=== PATIENT | male | born 1965 | race Caucasian/White ===

== ENCOUNTER 2017-02-04 11:22 | Emergency (ER) | payer MEDICARE ==
[~2017-02-04 11:22] MED LIST: GING250C PO; LORTA5 PO; METO10TA PO; MILK250C2 PO; NIAC500T18 PO; POTA99TA12 PO; PYRI100T4 PO; VITA500T49 PO; [UNRECOGNIZED DRUG - CODE] PO
[2017-02-04 11:24] VITALS: BP 124/85; PULSE 68; RESP 20; TEMP 97.6; O2SAT 6; O2SAT 96
--- NOTE | 2017-02-04 12:03 | PD ---
HPI . right ankle/heel/foot pain s/p fall Chief Complaint: Musculoskeletal Complaint Time Seen by Provider: 12:03 Travel History International Travel<30 days: No Contact w/Intl Traveler<30days: No Traveled to known affect area: No History of Present Illness HPI 51 yr old male with hx of liver cancer here with c/o right foot/heel/ankle pain s/p fall 2 days ago from a roof. He tells me he fell off and landed on his right heel. He denies any pain elsewhere and states he has full ROM of his right extremity, but that it just hurts to put weight on his heel. He rates pain as 2/10. He denies any back or head injury. He denies any bowel or bladder dysfunction. No saddle anesthesia. PFSH Past Medical History Arthritis: No Asthma: No Anxiety: Yes Depression: Yes Heart Rhythm Problems: No Cancer: Yes (COLON, LIVER) Cardiovascular Problems: No High Cholesterol: No Chemotherapy: Yes (currently ) Chest Pain: No Congestive Heart Failure: No COPD: No Cerebrovascular Accident: No Diabetes: No Diminished Hearing: No Endocrine: No GERD: No Genitourinary: No Hepatitis: No Hiatal Hernia: Yes Immune Disorder: No Kidney Stones: Yes Musculoskeletal: Yes Neurologic: Yes (NEUROPATHY IN FINGERS AND TOES) Psychiatric: Yes (SCHIZOPHRENIA DIAGNOSIS, PT STATES HE IS NOT) Reproductive: No Respiratory: No Immunizations Current: No Migraines: Yes Renal Failure: No Schizophrenia: Yes Seizures: No Sleep Apnea: No Thyroid Disease: No Ulcer: No Past Surgical History Abdominal Surgery: Yes (spots removed off of liver) AICD: No Arteriovenous Shunt: No Body Medical Devices: IMPLANTED PORT Cardiac Surgery: No Ear Surgery: No Endocrine Surgery: No Genitourinary Surgery: No Gynecologic Surgery: No Insulin Pump: No Joint Replacement: No Oral Surgery: No Pacemaker: No Thoracic Surgery: Yes (PORT PLACEMENT) Social History Alcohol Use: Yes (BEER DAILY) Tobacco Use: No Substance Use: Yes (marijuana 4 times/ day) Allergies-Medications (Allergen,Severity, Reaction): Coded Allergies: No Known Allergies (Verified , 02/04/17) Reported Meds & Prescriptions Reported Meds & Active Scripts Active Review of Systems General / Constitutional: No: Fever Eyes: No: Visual changes HENT: No: Headaches Cardiovascular: No: Chest Pain or Discomfort Respiratory: No: Shortness of Breath Gastrointestinal: No: Abdominal Pain Genitourinary: No: Dysuria Musculoskeletal: Positive: Pain (right foot/heel/ankle) Skin: No Rash Neurologic: No: Weakness Psychiatric: No: Depression Endocrine: No: Polydipsia Hematologic/Lymphatic: No: Easy Bruising Physical Exam Narrative GENERAL: AAO x 3, no acute distress, Well-nourished, well-developed patient. SKIN: Warm and dry. No visible rashes or bruising. Slight edema to the right anterior foot, right medial and lateral ankle, slight ecchymosis to proximal toes of right foot, no tension or tightness to suggest compartment syndrome HEAD: Normocephalic and atraumatic. EYES: No scleral icterus. No injection or drainage. EOM intact, PERRLA ENT: No nasal drainage noted. Mucous membranes pink. Airway patent. NECK: Supple, trachea midline. No JVD. CARDIOVASCULAR: Regular rate and rhythm without murmurs, gallops, or rubs. RESPIRATORY: Breath sounds equal bilaterally. No accessory muscle use. No rhonchi or rales. GASTROINTESTINAL: Abdomen soft, non-tender, nondistended. EXTREMITIES: No cyanosis or edema. Full range of motion of the right lower extremity. Hip joint is stable. Knee is stable. Right ankle is stable. Digits of the toes move normally. There is point tenderness around the heel and lateral right ankle NEURO: sensation is intact/ strength in RLE 5/5 BACK: Nontender without obvious deformity. No CVA tenderness. PSYCH: AAO x 3, normal affect. Data Data Last Documented VS Vital Signs Date Time Temp Pulse Resp B/P Pulse Ox O2 Delivery O2 Flow Rate FiO2 02/04/17 11:24 97.6 68 20 124/85 96 Room Air Orders Ankle, Complete ([id number]) (02/04/17 12:07) Foot, Complete ([id number]) (02/04/17 12:07) Femur (Ap & Lat/2vws) (02/04/17 14:11) Tibia/Fibula (Ap/Lat) (02/04/17 14:11) Pelvis, Ap Only (Routine) (02/04/17 14:11) Spine, Lumbar Comp W/Obliq (02/04/17 14:47) Ct Foot W/O Contrast (02/04/17 ) Splinting (02/04/17 ) Fiberglass Short Leg Splint Ad (02/04/17 ) Fiberglass Sugartong Sp Ad Sl (02/04/17 ) MDM Medical Decision Making Medical Screen Exam Complete: Yes Emergency Medical Condition: Yes Medical Record Reviewed: Yes Differential Diagnosis bone contusion, calcaneal fracture, less likely ankle fracture Narrative Course 51 yr old male here with right ankle/foot and heel pain. He tells me that the pain is primarily located in the right heel. He has no evidence of compartment syndrome. Last 24 hours Impressions Lumbar Spine X-Ray 02/04/17 1447 Signed Impressions: Service Date/Time: Saturday, February 04, 2017 14:59 - CONCLUSION: No evidence of fracture. Joe Gavin MD Tibia/Fibula X-Ray 02/04/17 1411 Signed Impressions: Service Date/Time: Saturday, February 04, 2017 14:26 - CONCLUSION: No evidence of fracture. Joe Gavin MD Pelvis X-Ray 02/04/17 1411 Signed Impressions: Service Date/Time: Saturday, February 04, 2017 14:30 - CONCLUSION: No evidence of fracture. Joe Gavin MD Femur X-Ray 02/04/17 1411 Signed Impressions: Service Date/Time: Saturday, February 04, 2017 14:31 - CONCLUSION: No evidence of fracture. Joe Gavin MD Foot X-Ray 02/04/17 1207 Signed Impressions: Service Date/Time: Saturday, February 04, 2017 12:45 - CONCLUSION: Nondisplaced calcaneal fracture. Joe Gavin MD Ankle X-Ray 02/04/17 1207 Signed Impressions: Service Date/Time: Saturday, February 04, 2017 12:44 - CONCLUSION: Nondisplaced central calcaneus fracture. Joe Gavin MD Xray ordered of right ankle and heel. Hip is stable and moves normally. Do no suspect any injury to that area. prelim rad: + calcaneal fracture 1413: rad confirmed:+ calcaneal fracture will go ahead and check entire extremity: discussed with Dr Guzman call placed to Podiatry to see if CT scan is recommended all other rad (negative for acute fracture) splint applied by life science technical officer offered pain medications upon discharge and patient declined stating his pain is 2/10 and he will use Motrin PRN. He will f/u with Dr. Tucker in her office, I have spoken to her. She will see him Monday. I have provided him with the information. I discussed this with him and his mother. Patient verbalized understanding of instructions, questions were answered, and thanked me for their care. I advised them if their condition worsens, please return to the nearest emergency room for further care. Diagnosis Primary Impression: Closed right calcaneal fracture Qualified Code: S92.014A - Closed nondisplaced fracture of body of right calcaneus, initial encounter Referrals: Emily Tucker DPM Patient Instructions: General Instructions Additional Instructions: If you develop any swelling or tightness of skin near the cast, please go to the nearest emergency department. This could be an emergency and would need immediate attention. Please follow-up with Dr. Tucker in her office on Monday. Med/Other Pt SpecificInfo: No Change to Meds Scripts No Active Prescriptions or Reported Meds Disposition: 01 DISCHARGE HOME Condition: Stable Britt Sherman February 04, 2017 12:03
--- NOTE | 2017-02-04 14:06 | RADRPT ---
EXAM DATE/TIME: 02/04/2017 12:44 [facility] COMPARISON: FOOT RIGHT COMPLETE ([id number]), February 04, 2017, 12:45. INDICATIONS : Right ankle pain after fall from roof 2 days ago MEDICAL HISTORY : None. SURGICAL HISTORY : None. ENCOUNTER: Initial ACUITY: 2 days PAIN SCORE: 2/10 LOCATION: Right entire ankle FINDINGS: 3 views right ankle. Bone alignment within normal limits. Nondisplaced fracture of the central calcan eus. Ankle mortise intact. CONCLUSION: Nondisplaced central calcaneus fracture. Joe Gavin MD on February 04, 2017 at 14:03 Board Certified Radiologist. This report was verified electronically.
--- NOTE | 2017-02-04 14:08 | RADRPT ---
EXAM DATE/TIME: 02/04/2017 12:45 [facility] COMPARISON: No previous studies available for comparison. INDICATIONS : Right foot pain after fall from ladder today MEDICAL HISTORY : None. SURGICAL HISTORY : None. ENCOUNTER: Initial ACUITY: 1 day PAIN SCORE: 2/10 LOCATION: Right entire foot FINDINGS: 3 views right foot. Nondisplaced central calcaneus fracture obliquely oriented and may involve the po sterior process. It extends to the lateral aspect of the anterior process. Alignment within normal li mits. CONCLUSION: Nondisplaced calcaneal fracture. Joe Gavin MD on February 04, 2017 at 14:05 Board Certified Radiologist. This report was verified electronically.
--- NOTE | 2017-02-04 15:21 | RADRPT ---
EXAM DATE/TIME: 02/04/2017 14:26 [facility] COMPARISON: No previous studies available for comparison. INDICATIONS : Trauma to right lower leg after fall from roof two days ago MEDICAL HISTORY : None. SURGICAL HISTORY : None. ENCOUNTER: Initial ACUITY: 2 days PAIN SCORE: 0/10 LOCATION: Right lower leg FINDINGS: 2 views right tibia and fibula. No evidence of bowel dilatation. No free air or free fluid. Appendix within normal limits. CONCLUSION: No evidence of fracture. Joe Gavin MD on February 04, 2017 at 15:19 Board Certified Radiologist. This report was verified electronically.
--- NOTE | 2017-02-04 15:22 | RADRPT ---
EXAM DATE/TIME: 02/04/2017 14:30 [facility] COMPARISON: No previous studies available for comparison. INDICATIONS : Trauma to pelvis after fall from roof two days ago MEDICAL HISTORY : None. SURGICAL HISTORY : None. ENCOUNTER: Initial ACUITY: 2 days PAIN SCORE: 0/10 LOCATION: Pelvis FINDINGS: Single AP view of the pelvis. Bone alignment within normal limits. No evidence of fracture. Minimal osteophytes in the hips. No evidence of joint narrowing. CONCLUSION: No evidence of fracture. Joe Gavin MD on February 04, 2017 at 15:20 Board Certified Radiologist. This report was verified electronically.
--- NOTE | 2017-02-04 15:23 | RADRPT ---
EXAM DATE/TIME: 02/04/2017 14:31 [facility] COMPARISON: No previous studies available for comparison. INDICATIONS : Trauma to right femur after fall from roof two days ago MEDICAL HISTORY : None. SURGICAL HISTORY : None. ENCOUNTER: Initial ACUITY: 2 days PAIN SCORE: 0/10 LOCATION: Right entire femur FINDINGS: 4 views right femur. Bone alignment within normal limits. No evidence of fracture. CONCLUSION: No evidence of fracture. Joe Gavin MD on February 04, 2017 at 15:21 Board Certified Radiologist. This report was verified electronically.
--- NOTE | 2017-02-04 15:36 | RADRPT ---
EXAM DATE/TIME: 02/04/2017 14:59 [facility] COMPARISON: No previous studies available for comparison. INDICATIONS : Ankle pain from fall off of a roof. MEDICAL HISTORY : None. SURGICAL HISTORY : None. ENCOUNTER: Initial ACUITY: 1 day PAIN SCORE: 0/10 LOCATION: Spine. FINDINGS: 5 views of the lumbar spine. Bone alignment within normal limits. No evidence of fracture. Small ost eophytes at every level. CONCLUSION: No evidence of fracture. Joe Gavin MD on February 04, 2017 at 15:33 Board Certified Radiologist. This report was verified electronically.
--- NOTE | 2017-02-04 16:13 | RADRPT ---
EXAM DATE/TIME: 02/04/2017 15:08 [facility] COMPARISON: FOOT RIGHT COMPLETE ([id number]), February 04, 2017, 12:45. INDICATIONS : Fall two days ago from roof, right foot pain. RADIATION DOSE: 10.15 CTDIvol (mGy) MEDICAL HISTORY : None SURGICAL HISTORY : None. ENCOUNTER: Initial ACUITY: 2 days PAIN SCALE: 9/10 LOCATION: Right foot TECHNIQUE: Volumetric scanning of the foot was performed. Using automated exposure control and a djustment of the mA and/or kV according to patient size, radiation dose was kept as low as reasonably achievable to obtain optimal diagnostic quality images. FINDINGS: There is fracturing through the calcaneus. The posterior extent of the fracture is seen superiorly j ust posterior to the posterior facet of the subtalar joint at the calcaneus. This portion of the fra cture extends inferiorly into the mid body of the calcaneus and then subsequently extends anteriorly towards the superior and lateral aspect of the anterior and mid portion of the calcaneus. There is a lso a component of the fracture extending through the anterior aspect of the sustentaculum mindy. No other fracture is seen. The subtalar joint does appear aligned. There is some loss of height at the calcaneus with loss of Bhler's angle. CONCLUSION: Calcaneal fracture. Prince Quintero MD on February 04, 2017 at 15:58 Board Certified Radiologist. This report was verified electronically.
== END 2017-02-04 16:25 | disposition home or self-care (01) ==
LOC: NEPK 11:22
DX: S92.014A Nondisplaced fracture of body of right calcaneus, initial encounter for closed fracture (principal); G62.9 Polyneuropathy, unspecified; Z85.05 Personal history of malignant neoplasm of liver; W13.2XXA Fall from, out of or through roof, initial encounter; Y99.8 Other external cause status
CPT/HCPCS: 29515; 72110; 72170; 73552; 73590; 73610; 73630; 73700

== ENCOUNTER 2017-10-16 12:46 | Emergency (ER) | payer MEDICARE ==
[~2017-10-16] VITALS: Ht 180.3 cm; Wt 72.7 kg
[2017-10-16] MEDS ORDERED: IOHEXOL 350 MG/ML 10 ML VIAL (for RAD DIAG) IVCONTRAST ONE (12:47)
[2017-10-16 12:49] VITALS: BP 124/84; PULSE 81; RESP 16; TEMP 97.8; O2SAT 98
[2017-10-16] MEDS ORDERED: SODIUM CHLOR 0.9% 1000 ML INJ 1,000 ML IV SCH (13:31)
--- NOTE | 2017-10-16 13:44 | PD ---
HPI Chief Complaint: Abdominal Pain Time Seen by Provider: 13:23 Travel History International Travel<30 days: No Contact w/Intl Traveler<30days: No Traveled to known affect area: No History of Present Illness HPI 52-year-old male presents emergency department with lower central anterior abdominal pain which he states he has been having off and on for approximately 2 weeks but much worse since last evening. Patient has had nausea but no vomiting. Pain is now an 8 out of 10 and sharp. He was diagnosed with metastatic colon cancer in May of 2014. The patient had multiple chemotherapies and now he is receiving local ablation therapy for liver metastasis at [facility]. Patient recently states he had a PET scan in [place] but does not know the results of this. Patient states his bowels have been moving normally and he has not noticed any changes. Patient has no history of diverticulitis in the past. He denies fever, chills, or chest pain. He denies urinary symptoms at this time. Patient has no known drug allergies. PFSH Past Medical History Arthritis: No Asthma: No Anxiety: Yes Depression: Yes Heart Rhythm Problems: No Cancer: Yes (COLON, LIVER) Cardiovascular Problems: No High Cholesterol: No Chemotherapy: Yes (12/2016) Chest Pain: No Congestive Heart Failure: No COPD: No Cerebrovascular Accident: No Diabetes: No Diminished Hearing: No Endocrine: No Gastrointestinal Disorders: Yes GERD: No Genitourinary: No Hepatitis: No Hiatal Hernia: Yes Immune Disorder: No Kidney Stones: Yes Musculoskeletal: Yes Neurologic: Yes (NEUROPATHY IN FINGERS AND TOES) Psychiatric: Yes (SCHIZOPHRENIA DIAGNOSIS, PT STATES HE IS NOT) Reproductive: No Respiratory: No Immunizations Current: No Migraines: Yes Renal Failure: No Schizophrenia: Yes Seizures: No Sleep Apnea: No Thyroid Disease: No Ulcer: No Past Surgical History Abdominal Surgery: Yes (spots removed off of liver) AICD: No Arteriovenous Shunt: No Body Medical Devices: IMPLANTED PORT Cardiac Surgery: No Ear Surgery: No Endocrine Surgery: No Genitourinary Surgery: No Gynecologic Surgery: No Insulin Pump: No Joint Replacement: No Oral Surgery: No Pacemaker: No Thoracic Surgery: Yes (PORT PLACEMENT) Other Surgery: Yes (HX OF COLONOSCOPY, PORT PLACEMENT x2) Social History Alcohol Use: Yes (occ) Tobacco Use: No Substance Use: Yes (marijuana ) Allergies-Medications (Allergen,Severity, Reaction): Coded Allergies: No Known Allergies (Verified Allergy, Unknown, 10/16/17) Reported Meds & Prescriptions Reported Meds & Active Scripts Active Tramadol (Tramadol HCl) 50 Mg Tab 50 Mg PO Q6H PRN Review of Systems Except as stated in HPI: all other systems reviewed are Neg General / Constitutional: No: Fever, Chills Eyes: No: Visual changes HENT: No: Headaches Cardiovascular: No: Chest Pain or Discomfort Respiratory: No: Shortness of Breath Gastrointestinal: Positive: Nausea, Abdominal Pain, Loss of Appetite, No: Vomiting, Diarrhea, Indigestion, Dysphagia Genitourinary: No: Dysuria Musculoskeletal: No: Pain Skin: No Rash Neurologic: No: Weakness Psychiatric: No: Depression Endocrine: No: Polydipsia Hematologic/Lymphatic: No: Easy Bruising Physical Exam Narrative GENERAL: Patient appears in moderate distress. SKIN: Warm and dry. Normal color. Normal turgor. No rash. HEAD: Atraumatic. Normocephalic. EYES: Pupils equal and round. No scleral icterus. No injection or drainage. ENT: No nasal bleeding or discharge. Mucous membranes pink and moist. Pharynx is clear. Airways patent. NECK: Trachea midline. Supple and nontender CARDIOVASCULAR: Regular rate and rhythm. RESPIRATORY: No accessory muscle use. Clear to auscultation. Breath sounds equal bilaterally. GASTROINTESTINAL: Abdomen soft, moderate to severe tenderness just below the umbilicus with guarding and slight rebound, nondistended. Bowel sounds are present in all quadrants. Hepatic and splenic margins not palpable. MUSCULOSKELETAL: Extremities without clubbing, cyanosis, or edema. No obvious deformities. NEUROLOGICAL: Awake and alert. No obvious cranial nerve deficits. Motor grossly within normal limits. Five out of 5 muscle strength in the arms and legs. Normal speech. PSYCHIATRIC: Appropriate mood and affect; insight and judgment normal. Data Data Last Documented VS Vital Signs Date Time Temp Pulse Resp B/P (MAP) Pulse Ox O2 Delivery O2 Flow Rate FiO2 10/16/17 17:32 10/16/17 16:28 65 18 100 Room Air 10/16/17 12:49 97.8 Orders Orders Complete Blood Count With Diff (10/16/17 13:31) Comprehensive Metabolic Panel (10/16/17 13:31) Lipase (10/16/17 13:31) Lactic Acid (10/16/17 13:31) Prothrombin Time / Inr (Pt) (10/16/17 13:31) Act Partial Throm Time (Ptt) (10/16/17 13:31) Urinalysis - C+S If Indicated (10/16/17 13:31) Ct Abd/Pel W Iv Contrast(Rout) (10/16/17 13:31) Iv Access Insert/Monitor (10/16/17 13:31) Ecg Monitoring (10/16/17 13:31) Oximetry (10/16/17 13:31) NPO (10/16/17 13:31) Ondansetron Inj (Zofran Inj) (10/16/17 13:45) Sodium Chlor 0.9% 1000 Ml Inj (Ns 1000 M (10/16/17 13:31) Sodium Chloride 0.9% Flush (Ns Flush) (10/16/17 13:45) Electrocardiogram (10/16/17 13:31) Famotidine Inj (Pepcid Inj) (10/16/17 13:45) Morphine Inj (Morphine Inj) (10/16/17 13:45) Iohexol 350 Inj (Omnipaque 350 Inj) (10/16/17 12:47) Ed Discharge Order (10/16/17 16:54) Heparin Central Flush (Heparin Central F (10/16/17 17:30) Labs Laboratory Tests Test 10/16/17 13:56 10/16/17 16:21 White Blood Count 7.7 TH/MM3 Red Blood Count 4.53 MIL/MM3 Hemoglobin 14.9 GM/DL Hematocrit 42.3 % Mean Corpuscular Volume 93.2 FL Mean Corpuscular Hemoglobin 32.9 PG Mean Corpuscular Hemoglobin Concent 35.3 % Red Cell Distribution Width 13.8 % Platelet Count 168 TH/MM3 Mean Platelet Volume 8.9 FL Neutrophils (%) (Auto) 69.3 % Lymphocytes (%) (Auto) 20.8 % Monocytes (%) (Auto) 7.8 % Eosinophils (%) (Auto) 1.2 % Basophils (%) (Auto) 0.9 % Neutrophils # (Auto) 5.4 TH/MM3 Lymphocytes # (Auto) 1.6 TH/MM3 Monocytes # (Auto) 0.6 TH/MM3 Eosinophils # (Auto) 0.1 TH/MM3 Basophils # (Auto) 0.1 TH/MM3 CBC Comment DIFF FINAL Differential Comment Prothrombin Time 10.2 SEC Prothromb Time International Ratio 1.0 RATIO Activated Partial Thromboplast Time 29.0 SEC Blood Urea Nitrogen 10 MG/DL Creatinine 0.61 MG/DL Random Glucose 89 MG/DL Total Protein 7.8 GM/DL Albumin 3.8 GM/DL Calcium Level 8.7 MG/DL Alkaline Phosphatase 121 U/L Aspartate Amino Transf (AST/SGOT) 28 U/L Alanine Aminotransferase (ALT/SGPT) 26 U/L Total Bilirubin 0.7 MG/DL Sodium Level 136 MEQ/L Potassium Level 3.8 MEQ/L Chloride Level 104 MEQ/L Carbon Dioxide Level 21.8 MEQ/L Anion Gap 10 MEQ/L Estimat Glomerular Filtration Rate 138 ML/MIN Lactic Acid Level 0.7 mmol/L Lipase 171 U/L Urine Color LIGHT-YELLOW Urine Turbidity CLEAR Urine pH 5.5 Urine Specific [place] GREATER THAN 1.050 Urine Protein TRACE mg/dL Urine Glucose (UA) NEG mg/dL Urine Ketones 10 mg/dL Urine Occult Blood SMALL Urine Nitrite NEG Urine Bilirubin NEG Urine Urobilinogen LESS THAN 2.0 MG/DL Urine Leukocyte Esterase NEG Urine RBC 3 /hpf Urine WBC LESS THAN 1 /hpf Urine Squamous Epithelial Cells <1 /hpf Microscopic Urinalysis Comment CULT NOT INDICATED MDM Medical Decision Making Medical Screen Exam Complete: Yes Emergency Medical Condition: Yes Medical Record Reviewed: Yes Differential Diagnosis Abdominal pain. Obstruction. Perforation. History colon cancer. Diverticulitis. Narrative Course Patient appears medically stable at time of exam. Labs ordered including CBC, CMP, lactic acid, lipase, and urinalysis. CT of the abdomen/pelvis ordered with IV contrast. IV access is obtained the patient is given 4 mg Zofran IV as well as 4 mg morphine IV, patient is given 20 mg Pepcid IV as well. Patient was given 1000 mL of normal saline bolus. CBC is unremarkable. Coagulation studies are normal Chemistries are completely normal except for elevated alk phos of 121. Lactic acid is 0.7. CT shows: 1. Interval increase in the size of one of the known liver metastasis and new adjacent liver metastasis. One of the other isn't noted masses in the left lobe is no longer visualized. 2. New retroperitoneal adenopathy. Urinalysis is normal as well. Patient is discussed with Dr. Mcgee who examined the patient as well. Patient is felt to have abdominal pain without obvious sign of obstruction, or infection. It is most likely related to his cancer. Patient is felt stable for discharge home. Patient will be given tramadol 50 mg 1 every 6 hours as needed #20. Patient is also recommend to use Colace as available [id number] to keep his stool soft. Patient call his oncologist for follow-up, or return to emergency department if symptoms worsen as needed Diagnosis Primary Impression: Abdominal pain Qualified Codes: R10.33 - Periumbilical pain Additional Impression: Rectal cancer metastasized to liver Referrals: Oncologist Patient Instructions: General Instructions Med/Other Pt SpecificInfo: Prescription(s) given Scripts Tramadol (Tramadol) 50 Mg Tab 50 MG PO Q6H Y for PAIN, #20 TAB 0 Refills Prov: Ronda Mcgee MD 10/16/17 Disposition: 01 DISCHARGE HOME Condition: Stable Rufus Singh Oct 16, 2017 13:43
[2017-10-16] MEDS ORDERED: FAMOTIDINE 20 MG/2 ML VIAL IV PUSH ONE (13:45)
[2017-10-16] MEDS ORDERED: SODIUM CHLORIDE 0.9% FLUSH 10 ML FLUSH IV FLUSH PRN (13:45)
[2017-10-16] MEDS ORDERED: ONDANSETRON HCL 4 MG/2 ML VIAL IVP ONE (13:45)
[2017-10-16] MEDS ORDERED: MORPHINE SULFATE 2 MG/ML INJ IV PUSH ONE (13:45)
[2017-10-16 13:47] VITALS: O2SAT 98
[2017-10-16 14:10] LABS: AUTOMATED NEUTROPHIL # 5.4 TH/MM3 (1.8-7.7); BASOPHIL # 0.1 TH/MM3 (0-0.2); BASOPHIL % 0.9 % (0.0-2.0); EOSINOPHIL # 0.1 TH/MM3 (0-0.4); EOSINOPHIL % 1.2 % (0.0-4.0); HEMATOCRIT 42.3 % (39.0-51.0); HEMOGLOBIN 14.9 GM/DL (13.0-17.0); LYMPH % 20.8 % (9.0-44.0); LYMPHOCYTE # 1.6 TH/MM3 (1.0-4.8); MEAN CELL VOLUME 93.2 FL (80.0-100.0); MEAN CORPUSCULAR HEMOGLOBIN 32.9 PG (27.0-34.0); MEAN CORPUSCULAR HGB CONC 35.3 % (32.0-36.0); MEAN PLATELET VOLUME 8.9 FL (7.0-11.0); MONO % 7.8 % (0.0-8.0); MONOCYTE # 0.6 TH/MM3 (0-0.9); NEUT % 69.3 % (16.0-70.0); PLATELET COUNT 168 TH/MM3 (150-450); RED BLOOD COUNT 4.53 MIL/MM3 (4.50-5.90); RED CELL DISTRIBUTION WIDTH 13.8 % (11.6-17.2); WHITE BLOOD COUNT 7.7 TH/MM3 (4.0-11.0)
[2017-10-16 14:21] LABS: PROTHROMBIN TIME - PATIENT 10.2 SEC (9.8-11.6)
[2017-10-16 14:26] LABS: ALBUMIN 3.8 GM/DL (3.4-5.0); ALT (GPT) 26 U/L (12-78); AST (GOT) 28 U/L (15-37); BICARBONATE 21.8 MEQ/L (21.0-32.0); BLOOD UREA NITROGEN 10 MG/DL (7-18); CALCIUM 8.7 MG/DL (8.5-10.1); CHLORIDE 104 MEQ/L (98-107); CREATININE 0.61 MG/DL (0.60-1.30); GLOMERULAR FILTRATION RATE 138 ML/MIN (>89); GLUCOSE,RANDOM 89 MG/DL (74-106); SODIUM (NA) 136 MEQ/L (136-145)
[2017-10-16 14:29] LABS: ALKALINE PHOSPHATASE 121 U/L (45-117); TOTAL BILIRUBIN ADULT 0.7 MG/DL (0.2-1.0); TOTAL PROTEIN 7.8 GM/DL (6.4-8.2)
--- NOTE | 2017-10-16 15:47 | RADRPT ---
EXAM DATE/TIME: 10/16/2017 14:57 [place] COMPARISON: CT ABDOMEN & PELVIS W CONTRAST, April 25, 2016, 14:01. INDICATIONS : Patient complains of abdominal pain for two weeks. Known metastatic cancer with liver metastasis. IV CONTRAST: cc Omnipaque 350 (iohexol) IV ORAL CONTRAST: No oral contrast ingested. RADIATION DOSE: 6.07 CTDIvol (mGy) MEDICAL HISTORY : Renal calculi. Carcinoma, colon. liver cancer SURGICAL HISTORY : None. ENCOUNTER: Initial ACUITY: 2 weeks PAIN SCALE: 5/10 LOCATION: lower quadrant abdomen TECHNIQUE: Volumetric scanning of the abdomen and pelvis was performed. Using automated exposure control and ad justment of the mA and/or kV according to patient size, radiation dose was kept as low as reasonably achievable to obtain optimal diagnostic quality images. DICOM format image data is available electro nically for review and comparison. FINDINGS: LOWER LUNGS: The visualized lower lungs are clear. LIVER: Liver remains stable in size and shape. The previous noted mass in the right lobe of the liver has in creased mildly in size and now measures up to approximately 3.4 cm in greatest diameter compared to 2 .7 cm on prior study. There is a new adjacent low attenuation mass more medially located which measur es up to approximately 2.7 cm. The previously noted mass in the left lobe is no longer distinctly vis ualized. There is a subtle mass in the inferior right lobe again noted on axial image #34. The gallbl adder remains unremarkable. SPLEEN: Normal size without lesion. PANCREAS: Within normal limits. KIDNEYS: Normal in size and shape. There is no mass, stone or hydronephrosis. ADRENAL GLANDS: Within normal limits. VASCULAR: There is no aortic aneurysm. BOWEL/MESENTERY: The stomach, small bowel, and colon demonstrate no acute abnormality. There is no free intraperitone al air or fluid. ABDOMINAL WALL: Within normal limits. RETROPERITONEUM: There is new retroperitoneal adenopathy surrounding portions of the aorta extending down to the level of bifurcation. Portions of this are conglomerate. There areas measuring up to at least 3.5 cm. BLADDER: No wall thickening or mass. REPRODUCTIVE: Within normal limits. INGUINAL: There is no lymphadenopathy or hernia. MUSCULOSKELETAL: Within normal limits for patient age. CONCLUSION: 1. Interval increase in the size of one of the known liver metastasis and new adjacent liver metastas is. One of the other isn't noted masses in the left lobe is no longer visualized. 2. New retroperitoneal adenopathy. Didier Christiansen MD on October 16, 2017 at 15:39 Board Certified Radiologist. This report was verified electronically.
[2017-10-16 16:28] VITALS: BP 141/83; PULSE 65; RESP 18; O2SAT 100
[2017-10-16 16:38] LABS: BILIRUBIN, URINE NEG (NEG); BLOOD, URINE SMALL (NEG); GLUCOSE,URINE NEG (NEG); KETONE, URINE 10 mg/dL (NEG); NITRITE,URINE NEG (NEG); PH, URINE 5.5 (5.0-8.5); SQUAMOUS EPITHELIAL CELL URINE <1 /hpf (0-5); URINE COLOR LIGHT-YELLOW (YELLW/STRAW); URINE LEUKOCYTE ESTERASE NEG (NEG)
--- NOTE | 2017-10-16 16:51 | PD ---
Data Data Last Documented VS Vital Signs Date Time Temp Pulse Resp B/P (MAP) Pulse Ox O2 Delivery O2 Flow Rate FiO2 10/16/17 16:28 65 18 141/83 (102) 100 Room Air 10/16/17 12:49 97.8 Orders Orders Complete Blood Count With Diff (10/16/17 13:31) Comprehensive Metabolic Panel (10/16/17 13:31) Lipase (10/16/17 13:31) Lactic Acid (10/16/17 13:31) Prothrombin Time / Inr (Pt) (10/16/17 13:31) Act Partial Throm Time (Ptt) (10/16/17 13:31) Urinalysis - C+S If Indicated (10/16/17 13:31) Ct Abd/Pel W Iv Contrast(Rout) (10/16/17 13:31) Iv Access Insert/Monitor (10/16/17 13:31) Ecg Monitoring (10/16/17 13:31) Oximetry (10/16/17 13:31) NPO (10/16/17 13:31) Ondansetron Inj (Zofran Inj) (10/16/17 13:45) Sodium Chlor 0.9% 1000 Ml Inj (Ns 1000 M (10/16/17 13:31) Sodium Chloride 0.9% Flush (Ns Flush) (10/16/17 13:45) Electrocardiogram (10/16/17 13:31) Famotidine Inj (Pepcid Inj) (10/16/17 13:45) Morphine Inj (Morphine Inj) (10/16/17 13:45) Iohexol 350 Inj (Omnipaque 350 Inj) (10/16/17 12:47) Labs Laboratory Tests Test 10/16/17 13:56 10/16/17 16:21 White Blood Count 7.7 TH/MM3 Red Blood Count 4.53 MIL/MM3 Hemoglobin 14.9 GM/DL Hematocrit 42.3 % Mean Corpuscular Volume 93.2 FL Mean Corpuscular Hemoglobin 32.9 PG Mean Corpuscular Hemoglobin Concent 35.3 % Red Cell Distribution Width 13.8 % Platelet Count 168 TH/MM3 Mean Platelet Volume 8.9 FL Neutrophils (%) (Auto) 69.3 % Lymphocytes (%) (Auto) 20.8 % Monocytes (%) (Auto) 7.8 % Eosinophils (%) (Auto) 1.2 % Basophils (%) (Auto) 0.9 % Neutrophils # (Auto) 5.4 TH/MM3 Lymphocytes # (Auto) 1.6 TH/MM3 Monocytes # (Auto) 0.6 TH/MM3 Eosinophils # (Auto) 0.1 TH/MM3 Basophils # (Auto) 0.1 TH/MM3 CBC Comment DIFF FINAL Differential Comment Prothrombin Time 10.2 SEC Prothromb Time International Ratio 1.0 RATIO Activated Partial Thromboplast Time 29.0 SEC Blood Urea Nitrogen 10 MG/DL Creatinine 0.61 MG/DL Random Glucose 89 MG/DL Total Protein 7.8 GM/DL Albumin 3.8 GM/DL Calcium Level 8.7 MG/DL Alkaline Phosphatase 121 U/L Aspartate Amino Transf (AST/SGOT) 28 U/L Alanine Aminotransferase (ALT/SGPT) 26 U/L Total Bilirubin 0.7 MG/DL Sodium Level 136 MEQ/L Potassium Level 3.8 MEQ/L Chloride Level 104 MEQ/L Carbon Dioxide Level 21.8 MEQ/L Anion Gap 10 MEQ/L Estimat Glomerular Filtration Rate 138 ML/MIN Lactic Acid Level 0.7 mmol/L Lipase 171 U/L Urine Color LIGHT-YELLOW Urine Turbidity CLEAR Urine pH 5.5 Urine Specific [place] GREATER THAN 1.050 Urine Protein TRACE mg/dL Urine Glucose (UA) NEG mg/dL Urine Ketones 10 mg/dL Urine Occult Blood SMALL Urine Nitrite NEG Urine Bilirubin NEG Urine Urobilinogen LESS THAN 2.0 MG/DL Urine Leukocyte Esterase NEG Urine RBC 3 /hpf Urine WBC LESS THAN 1 /hpf Urine Squamous Epithelial Cells <1 /hpf Microscopic Urinalysis Comment CULT NOT INDICATED MDM Supervised Visit with RONAL: Yes Narrative Course The history, exam, and medical decision-making in the associated midlevel provider note were completed with my assistance. I reviewed and agree with the findings presented. I attest that I had a [id number] encounter with the patient on the same day, and personally performed and documented my assessment and findings in the medical record. *My assessment and Findings: This is a 52-year-old male who has a history of metastatic colon cancer who presents to the emergency department with lower abdominal pain. Labs and CT scan imaging are reassuring. Patient has a benign exam. I suspect his pain is related to his liver metastases. Patient will be prescribed tramadol and Colace and can follow-up as an outpatient with Dr. Nori Arce No Active Prescriptions or Reported Meds Condition: Stable Ronda Mcgee MD Oct 16, 2017 16:51
[2017-10-16] MEDS ORDERED: TRAM50TA PO (16:53)
--- NOTE | 2017-10-17 17:14 | EKG ---
Date Performed: 10/16/2017 Time Performed: 14:16:09 PTAGE: 52 years EKG: Sinus rhythm RIGHT BUNDLE BRANCH BLOCK ABNORMAL ECG PREVIOUS TRACING : 02/26/2015 08.43 DOCTOR: Ajay Castillo Interpretating Date/Time 10/17/2017 17:13:41
== END 2017-10-16 17:41 | disposition home or self-care (01) ==
LOC: NEPD 12:46
DX: R10.33 Periumbilical pain (principal); C20 Malignant neoplasm of rectum; C78.7 Secondary malignant neoplasm of liver and intrahepatic bile duct; R94.31 Abnormal electrocardiogram [ECG] [EKG]; F32.9 Major depressive disorder, single episode, unspecified; F20.9 Schizophrenia, unspecified
CPT/HCPCS: 74177; 80053; 81001; 83605; 83690; 85025; 85610; 85730; 93005; 96361; 96374; 96375; 99285; J1642; J2270; J2405; J7030; Q9967

== ENCOUNTER 2018-05-17 11:26 | Observation (INO) ==
[2018-05-17] MEDS ORDERED: HYDROmorphone PF Inj 2 MG/ML Vial IV.PUSH ONE (13:02)
[2018-05-17] MEDS ORDERED: Sod Chloride 0.9% Inj 1,000 ML IV.SIG ONE (13:02)
--- NOTE | 2018-05-17 13:30 | ED ---
HPI General Chief complaint: Nausea/Vomiting/Diarrhea Stated complaint: General Pain Time Seen by Provider: 05/17/18 12:52 Source: patient, family, RN notes reviewed and old records reviewed Mode of arrival: ambulatory History of Present Illness HPI narrative: 52yM presenting with left flank pain, chills, nausea, and vomiting. The patient has colon cancer with mets to liver (stage 4), on chemotherapy (last chemo yesterday), and says that he's been having severe "sharp" left flank pain for the past week and a half which is non-radiating, worse with movement, not made better by anything, associated with nausea and vomiting. The patient says that he's had over 10 episodes of vomiting since 2: 00 this morning, and reports that he developed shaking chills at the same time. Also admits to non-productive cough, loose stools, and dark discoloration of urine. He has been seen in our department twice this week (05/12 and 05/15), both times had CT scans performed which showed no acute findings, and was discharged with zofran/ [place], which he says is not helping. He also had a 3rd CT scan 1 week ago at [facility] for staging. His oncologist is Dr. Baumann. Related Data Previous Rx's Medication Instructions Recorded ondansetron [Zofran ODT] 4 mg PO Q8H PRN #10 tab 05/12/18 hydrocodone-acetaminophen [[place]] 1 tab PO Q6H PRN #12 tab 05/15/18 Allergies Allergy/AdvReac Type Severity Reaction Status Date / Time No Known Allergies Allergy Verified 05/12/18 11:34 Review of Systems ROS: all other systems reviewed are negative Constitutional Reports chills and Denies fever(s) Cardiovascular Denies chest pain Respiratory Reports cough Gastrointestinal Reports nausea and Reports vomiting Genitourinary Reports flank pain Neurologic Reports weakness PMFSH History History Provided By: Patient Medical History Medical History Colon cancer (Acute) Liver metastases (Acute) Port-A-Cath in place (Acute) Prostate CA (Acute) Surgical History Surgical History History of colon resection (Acute) Social History Social History Substance History: Active Abuse Smoking Status: Unknown if ever smoked Tobacco Type: Cigarettes How Often Do You Have a Drink Containing Alcohol: Never Recent Travel in [facility] within the Last 8 Weeks: No Recent Out of Country Travel within the Last 8 Weeks: No Exam Const Other: Ill-appearing Rigors HENMT Head: normocephalic and atraumatic Other: Mucosa dry Eyes General: appearance normal, both eyes and all related structures Pupils: PERRL Chest Other: Port present in right upper chest Resp Effort & Inspection: normal respiratory effort Auscultation: no rhonchi and no wheezes Cardio Rate: regular rate Rhythm: regular rhythm GI Other: Soft, non-distended, minimal diffuse tenderness, no guarding or rebound, no CVA tenderness Skin General: no rashes or lesions noted Neuro General: alert, awake, oriented x3 and no focal motor deficits Psych Affect: normal affect Course Initial Documented Vital Signs Temperature 97.7 F 05/17/18 12:14 Pulse Rate 69 05/17/18 12:14 Respiratory Rate 18 05/17/18 12:14 Blood Pressure 147/80 H 05/17/18 12:14 Pulse Oximetry 100 05/17/18 12:14 Last Documented Vital Signs Temperature 97.7 F 05/17/18 12:14 Pulse Rate 69 05/17/18 12:14 Respiratory Rate 18 05/17/18 12:14 Blood Pressure 147/80 H 05/17/18 12:14 Pulse Oximetry 100 05/17/18 12:[address] [facility] Narrative Medical decision making narrative: Assessment: 52yM presenting with nausea, vomiting, flank pain, rigors Plan: EKG and monitor IV fluids, pain control, antiemetics Labs CXR Given that the patient has had multiple CT scans in the past week, and no change in his symptoms, I will get an abdominal X-ray to rule out SBO or ileus but I do not feel that he requires a 4th scan today. He and his agree with this plan. Addendum: Patient's workup shows mild hypokalemia and dehydration. He has received 3 doses of antiemetics and is still unable to tolerate any PO intake. He will need observation for repletion of electrolytes and IV hydration. Case discussed with Dr. Quiroz of [facility]. Medical Screen Exam Complete: Yes Emergency Medical Condition: Yes Differential Diagnosis Differential Diagnosis: Differential diagnosis includes, but is not limited to: infection (UTI, pneumonia), SBO, ileus, N/V secondary to chemotherapy, neutropenia, electrolyte abnormality, dehydration, anemia Lab Data Lab results reviewed: Yes I reviewed the patient's lab results. Result diagrams: 05/17/18 13:10 05/17/18 13:10 Lab Results 05/17/18 05/17/18 05/17/18 Range/Units 13:10 13:10 13:10 WBC 11.3 H (4.0-11.0) th/mm3 RBC 4.02 L (4.50-5.90) mil/mm3 Hgb 13.5 (13.0-17.0) gm/dL Hct 39.5 (39.0-51.0) % MCV 98.3 (80.0-100.0) fL MCH 33.6 (27.0-34.0) pg MCHC 34.1 (32.0-36.0) % RDW 15.4 (11.6-17.2) % Plt Count 154 (150-450) th/mm3 MPV 9.7 (7.0-11.0) fL Neut % (Auto) 85.0 H (16.0-70.0) % Lymph % (Auto) 6.5 L (9.0-44.0) % Reynolds % (Auto) 8.2 H (0.0-8.0) % Eos % (Auto) 0.1 (0.0-4.0) % Baso % (Auto) 0.2 (0.0-2.0) % Neut # (Auto) 9.6 H (1.8-7.7) th/mm3 Lymph # (Auto) 0.7 L (1.0-4.8) th/mm3 Reynolds # (Auto) 0.9 (0.0-0.9) th/mm3 Eos # (Auto) 0.0 (0.0-0.4) th/mm3 Baso # (Auto) 0.0 (0.0-0.2) th/mm3 WBC Differential . Differential Comment Auto diff final Sodium 136 (136-145) meq/L Potassium 3.2 L (3.5-5.1) meq/L Chloride 101 (98-107) meq/L Carbon Dioxide 23.5 (21.0-32.0) meq/L Anion Gap 12 (5-15) meq/L BUN 10 (7-18) mg/dL Creatinine 0.58 L (0.60-1.30) mg/dL Estimated GFR Greater than 89 (>89) mL/min Random Glucose 113 H (74-106) mg/dL Lactic Acid 1.3 (0.4-2.0) mmol/L Calcium 8.5 (8.5-10.1) mg/dL Magnesium 1.8 (1.5-2.5) mg/dL Total Bilirubin 1.1 H (0.2-1.0) mg/dL AST 52 H (15-37) U/L ALT 132 H (12-78) U/L Alkaline Phosphatase 247 H (45-117) U/L Total Protein 7.1 (6.4-8.2) g/dL Albumin 3.8 (3.4-5.0) g/dL Lipase 373 (73-393) U/L Imaging Data Radiologist's impression: Abdomen X-Ray 05/17/18 13:02 CONCLUSION: Unremarkable study except for stool. Chest X-Ray 05/17/18 13:02 CONCLUSION: No acute cardiopulmonary disease. Discharge Plan Discharge Disposition Patient Disposition: 30 Still Patient Discharge Condition Condition: Stable Discharge Details Diagnosis: Intractable nausea and vomiting, Dehydration, Hypokalemia Physicians Team ED Provider: Ange Fox Primary Care Provider: Dashawn Baumann Rxs /Orders / Referrals /Forms Prescriptions: No Action ondansetron [Zofran ODT] 4 mg tablet,disintegrating 4 mg PO Q8H PRN (Reason: nausea and vomiting) Qty: 10 RF: 0 hydrocodone-acetaminophen [[place]] 7.5-325 mg tablet 1 tab PO Q6H PRN (Reason: pain) Qty: 12 RF: 0 Status ED Status: With Doctor
[2018-05-17 13:51] LABS: Baso % (Auto) 0.2 % (0.0-2.0); Eos % (Auto) 0.1 % (0.0-4.0); Hematocrit 39.5 % (39.0-51.0); Hemoglobin 13.5 gm/dL (13.0-17.0); Lymph # (Auto) 0.7 th/mm3 (1.0-4.8); Lymph % (Auto) 6.5 % (9.0-44.0); Mean Corpuscular HGB Conc 34.1 % (32.0-36.0); Mean Corpuscular Hemoglobin 33.6 pg (27.0-34.0); Mean Corpuscular Volume 98.3 fL (80.0-100.0); Mean Platelet Volume 9.7 fL (7.0-11.0); Mono # (Auto) 0.9 th/mm3 (0.0-0.9); Mono % (Auto) 8.2 % (0.0-8.0); Neut # (Auto) 9.6 th/mm3 (1.8-7.7); Platelet Count 154 th/mm3 (150-450); Red Blood Count 4.02 mil/mm3 (4.50-5.90); Red Cell Distribution Width 15.4 % (11.6-17.2); White Blood Count 11.3 th/mm3 (4.0-11.0)
--- NOTE | 2018-05-17 14:12 | XR ---
EXAM DATE: 05/17/2018 2:04 PM EDT AGE/SEX: 52 years / Male INDICATIONS: . Cough. CLINICAL DATA: This is the patient's sequela encounter. Patient reports that signs and symptoms have been present for 3 weeks and indicates a pain score of 1/10. MEDICAL/SURGICAL HISTORY: . Carcinoma, colon. Carcinoma, prostatic. Metastatic disease. Renal s tones. . Colon resection. [place]PAR[place]: [facility] [place] SING[place], 05/12/2018. . FINDINGS: The lungs are clear without infiltrate, nodule, or mass. There is no appreciable pleural effusion for technique. Heart and mediastinum are unremarkable. Left IJ [id number] is present with tip overlapping the expected region of the SVC. CONCLUSION: No acute cardiopulmonary disease. Electronically signed by: Jered Livingston MD 05/17/2018 2:10 PM EDT
--- NOTE | 2018-05-17 14:12 | XR ---
EXAM DATE: 05/17/2018 2:00 PM EDT AGE/SEX: 52 years / Male INDICATIONS: Cough and vomiting. CLINICAL DATA: This is the patient's sequela encounter. Patient reports that signs and symptoms have been present for 3 weeks and indicates a pain score of 1/10. MEDICAL/SURGICAL HISTORY: . Carcinoma, colon. Carcinoma, prostatic. Metastatic disease. Renal s tones. . Colon resection. COMPARISON: No prior exams available for comparison. FINDINGS: The bowel gas is nonspecific. There are no signs of obstruction or free air for technique . No definite calcified stones are identified for technique. Moderate stool is present throughout the colon. CONCLUSION: Unremarkable study except for stool. Electronically signed by: Jered Livingston MD 05/17/2018 2:11 PM EDT
[2018-05-17 14:13] LABS: Albumin 3.8 g/dL (3.4-5.0); Anion Gap 12 meq/L (5-15); Aspartate Aminotransferase 52 U/L (15-37); Blood Urea Nitrogen 10 mg/dL (7-18); Calcium 8.5 mg/dL (8.5-10.1); Carbon Dioxide 23.5 meq/L (21.0-32.0); Chloride 101 meq/L (98-107); Glomerular Filtration Rate Greater Than 89 mL/min (>89); Glucose,Random 113 mg/dL (74-106); Lipase 373 U/L (73-393); Magnesium 1.8 mg/dL (1.5-2.5); Potassium 3.2 meq/L (3.5-5.1); Sodium 136 meq/L (136-145)
[2018-05-17 14:15] LABS: Alanine Aminotransferase 132 U/L (12-78)
[2018-05-17 14:17] LABS: Alkaline Phosphatase 247 U/L (45-117); Total Protein 7.1 g/dL (6.4-8.2)
[2018-05-17 17:40] LABS: Amorphous Sediment,Urine Few /hpf; Bilirubin,Urine Negative (Negative); Clarity,Urine Hazy (Clear); Color,Urine Yellow (Yellw/Straw); Glucose,Urine (UA) Negative (Negative); Leukocyte Esterase,Urine Negative (Negative); Mucus,Urine Few /lpf (Occasional); Nitrite,Urine Negative (Negative); Specific Gravity,Urine 1.023 (1.002-1.035); Urobilinogen,Urine 4 or Greater mg/dL (Less than 2)
[2018-05-17] MEDS ORDERED: Acetaminophen 325 MG Tablet PO PRN (18:23)
[2018-05-17] MEDS: Potassium Chlor 20 mEq Premix 20 MEQ/100 ML PIGGYBACK IV.SIG SCH ×2 (18:35→20:38)
[2018-05-17] MEDS: Enoxaparin Inj 40 MG/0.4 ML Syringe SQ SCH ×3 (18:43→20:42)
[2018-05-17] MEDS ORDERED: Naloxone Inj 0.4 MG/ML Vial IV.PUSH PRN ×2 (20:21→21:17)
--- NOTE | 2018-05-17 21:18 | P.HPIM ---
History of Present Illness Primary Care Physician: Dashawn Baumann MD History of Present Illness: 52-year-old male with a history of colon cancer metastatic to liver, most recent chemo yesterday who presents for constant, sharp nonradiating left flank pain which is worse with movement, intractable nausea and nonbloody emesis, as well as chills over the past 3 days. patient follows with Dr. Baumann.. Patient visited the ER on 05/15. CT done shows no renal stones, however does show metastatic liver lesions with retroperitoneal lymphadenopathy, unchanged. Review of Systems All other systems reviewed negative except as stated in HPI PMFSH - History History Provided By: Patient - Medical History Medical History: Medical History (Last Reviewed 05/17/18 @ 13:34 by Ange Fox DO) Colon cancer Liver metastases Port-A-Cath in place Prostate CA - Surgical History Surgical History: Surgical History (Last Reviewed 05/17/18 @ 13:34 by Ange Fox DO) History of colon resection - Family History Family History: Family History (Last Updated 05/17/18 @ 21:14 by Panda Woods MD) Father Healthy adult Mother Healthy adult - Tobacco History Smoking Status: Unknown if ever smoked Tobacco Type: Cigarettes - Alcohol History How Often Do You Have a Drink Containing Alcohol: Never - Substance Use History Substance History: Active Abuse - Travel History Recent Travel in the [place] Within the Last 8 Weeks: No Recent Travel Out of the Country Within the Last 8 Weeks: No - Immunization History Tetanus Immunization: <5 Years Medications and Allergies Active Medications: Active Medications Acetaminophen (Tylenol) 650 mg PO Q4H PRN PRN Reason: Temp > 100.4 Hydrocodone Bitart/Acetaminophen ([place] 10/325) 1 tab PO Q4H PRN PRN Reason: PAIN SCALE 6 TO 10 Hydrocodone Bitart/Acetaminophen ([place] 5/325) 1 tab PO Q4H PRN PRN Reason: PAIN SCALE 3 TO 5 Al Hydroxide/Mg Hydroxide (Milk Of Magnesia Liq) 30 ml PO Q12H PRN PRN Reason: Mild Constipation Enoxaparin Sodium (Lovenox Inj) 40 mg SQ Q24H ARUN Last Admin: 05/17/18 20:42 Dose: Not Given Sodium Chloride (Ns Inj) 1,000 mls @ 100 mls/hr IV.CONT .Q10H ARUN Methylprednisolone Sodium Succinate (Solumedrol Inj) 40 mg IV.PUSH Q8HR ARUN Naloxone HCl (Narcan Inj) 0.4 mg IV.PUSH UNSCH PRN PRN Reason: SEE LABEL COMMENTS Ondansetron HCl (Zofran Inj) 4 mg IV.PUSH Q6H PRN PRN Reason: NAUSEA OR VOMITING Allergies Allergy/AdvReac Type Severity Reaction Status Date / Time No Known Allergies Allergy Verified 05/12/18 11:34 Exam Vital signs: Vital Signs 05/17/18 12:14 05/17/18 17:17 05/17/18 18:51 Temperature 97.7 F 97.4 F L Pulse Rate 69 78 Respiratory Rate 18 16 Blood Pressure 147/80 H 132/68 Pulse Oximetry 100 Intake & Output 05/17/18 05/17/18 05/18/18 06:59 18:59 06:59 Intake Total 1000 / 1000 100 / 100 Balance 1000 / 1000 100 / 100 Weight 72.575 kg Intake: IV 1000 / 1000 100 / 100 KCl 20 mEq Premix Inj 20 meq In 100 / 100 100 ml @ 50 mls/hr IV.SIG Q2H ARUN Rx#:[id number] NS Inj 1,000 ML @ Wide Open IV. 1000 / 1000 SIG BOLUS ONE Rx#:[id number] Narrative: GENERAL: Patient sitting up in bed. Appears uncomfortable. Alert and oriented 3. SKIN: Warm and dry. HEAD: Atraumatic. Normocephalic. EYES: Pupils equal and round. No scleral icterus. No injection or drainage. ENT: No nasal bleeding or discharge. Mucous membranes pink and moist. NECK: Trachea midline. No JVD. CARDIOVASCULAR: Regular rate and rhythm. RESPIRATORY: No accessory muscle use. Clear to auscultation. Breath sounds equal bilaterally. GASTROINTESTINAL: Abdomen soft, non-tender, nondistended. Hepatic and splenic margins not palpable. MUSCULOSKELETAL: Extremities without clubbing, cyanosis, or edema. No obvious deformities. NEUROLOGICAL: Awake and alert. No obvious cranial nerve deficits. Motor grossly within normal limits. Five out of 5 muscle strength in the arms and legs. Normal speech. Patient does have chills when uncovered. PSYCHIATRIC: Appropriate mood and affect; insight and judgment normal. Results - Labs CBC & Chem 7: 05/17/18 13:10 05/17/18 13:10 Labs: Short CBC 05/17/18 Range/Units 13:10 WBC 11.3 H (4.0-11.0) th/mm3 Hgb 13.5 (13.0-17.0) gm/dL Hct 39.5 (39.0-51.0) % Plt Count 154 (150-450) th/mm3 BMP 05/17/18 13:10 Sodium 136 Potassium 3.2 L Chloride 101 Carbon Dioxide 23.5 BUN 10 Creatinine 0.58 L Calcium 8.5 Liver Function 05/17/18 Range/Units 13:10 Total Bilirubin 1.1 H (0.2-1.0) mg/dL AST 52 H (15-37) U/L ALT 132 H (12-78) U/L Alkaline Phosphatase 247 H (45-117) U/L Albumin 3.8 (3.4-5.0) g/dL Urine 05/17/18 Range/Units 17:05 Urine Color Yellow (Yellw/Straw) Urine Clarity Hazy H (Clear) Urine pH 6.0 (5.0-8.5) Ur Specific [place] 1.023 (1.002-1.035) Urine Protein Negative (Neg-Trace) mg/dL Urine Glucose (UA) Negative (Negative) mg/dL - Imaging Impressions Abdomen X-Ray 05/17/18 13:02 CONCLUSION: Unremarkable study except for stool. Chest X-Ray 05/17/18 13:02 CONCLUSION: No acute cardiopulmonary disease. Caprini VTE Risk Assessment Caprini VTE Risk Assessment: Moderate/High Risk (score >= 2) Caprini Risk Assessment Model: Point Value = 1 Point Value = 2 Point Value = 3 Point Value = 5 Age 41-60 Minor surgery BMI > 25 kg/m2 Swollen legs Varicose veins or History of unexplained or recurrent spontaneous Oral contraceptives or hormone replacement Sepsis (< 1 month) Serious lung disease, including pneumonia (< 1 month) Abnormal pulmonary function Acute myocardial infarction Congestive heart failure (< 1 month) History of inflammatory bowel disease Medical patient at bed rest Age 61-74 Arthroscopic surgery Major open surgery (> 45 min) Laparoscopic surgery (> 45 min) Malignancy Confined to bed (> 72 hours) Immobilizing plaster cast Central venous access Age >= 75 History of VTE Family history of VTE Factor V Leiden Prothrombin [id number] Lupus anticoagulant Anticardiolipin antibodies Elevated serum homocysteine Heparin-induced thrombocytopenia Other congenital or acquired thrombophilia Stroke (< 1 month) Elective arthroplasty Hip, pelvis, or leg fracture Acute spinal cord injury (< 1 month) Prophylaxis Regimen: Total Risk Factor Score Risk Level Prophylaxis Regimen 0-1 Low Early ambulation 2 Moderate Order ONE of the following: *Sequential Compression Device (SCD) *Heparin 5000 units SQ BID 3-4 Higher Order ONE of the following medications: *Heparin 5000 units SQ TID *Enoxaparin/Lovenox 40 mg SQ daily (WT < 150 kg, CrCl > 30 mL/min) *Enoxaparin/Lovenox 30 mg SQ daily (WT < 150 kg, CrCl > 10-29 mL/min) *Enoxaparin/Lovenox 30 mg SQ BID (WT < 150 kg, CrCl > 30 mL/min) AND/OR *Sequential Compression Device (SCD) 5 or more Highest Order ONE of the following medications: *Heparin 5000 units SQ TID (Preferred with Epidurals) *Enoxaparin/Lovenox 40 mg SQ daily (WT < 150 kg, CrCl > 30 mL/min) *Enoxaparin/Lovenox 30 mg SQ daily (WT < 150 kg, CrCl > 10-29 mL/min) *Enoxaparin/Lovenox 30 mg SQ BID (WT < 150 kg, CrCl > 30 mL/min) AND *Sequential Compression Device (SCD) Assessment and Plan - Plan //Intractable nausea vomiting. Likely secondary to chemotherapy. Antiemetics as necessary. //Metastatic colon cancer to liver //Transaminitis -IV fluids, supportive care as above We will consult patient's oncologist. //Left flank pain This is likely secondary to retroperitoneal lymphadenopathy Pain control as needed. //Dry cough. Uncertain etiology. Chest x-ray negative. Continue to monitor. Discussed Condition With: Patient, nurse, Dr. Quiroz
[2018-05-17] MEDS: Sod Chloride 0.9% Inj 1,000 ML IV.CONT SCH (22:26)
[2018-05-17] MEDS: MethylPREDNISolone Sod Succinate Inj 40 MG/ML Vial IV.PUSH SCH (22:26)
[2018-05-17] MEDS: oxyCODONE/Acetaminophen 10/325 Tablet PO PRN (22:28)
[2018-05-18] MEDS: MethylPREDNISolone Sod Succinate Inj 40 MG/ML Vial IV.PUSH SCH ×3 (06:11→21:07)
[2018-05-18] MEDS: Sod Chloride 0.9% Inj 1,000 ML IV.CONT SCH ×2 (06:13→16:57)
--- NOTE | 2018-05-18 09:52 | ECG ---
Date Performed: 05/17/2018 Time Performed: 18:40:47 PTAGE: 52 years EKG: Sinus rhythm RIGHT BUNDLE BRANCH BLOCK ABNORMAL ECG Since the PREVIOUS TRACING , no significant change noted PREVIOUS TRACING DOCTOR: Suresh Melara Interpretating Date/Time 05/18/2018 09:50:17
[2018-05-18 11:52] LABS: Hematocrit 40.4 % (39.0-51.0); Hemoglobin 13.5 gm/dL (13.0-17.0); Mean Corpuscular HGB Conc 33.5 % (32.0-36.0); Mean Corpuscular Hemoglobin 33.6 pg (27.0-34.0); Mean Corpuscular Volume 100.4 fL (80.0-100.0); Mean Platelet Volume 9.5 fL (7.0-11.0); Platelet Count 148 th/mm3 (150-450); Red Blood Count 4.02 mil/mm3 (4.50-5.90); Red Cell Distribution Width 15.4 % (11.6-17.2); White Blood Count 4.2 th/mm3 (4.0-11.0)
[2018-05-18 12:14] LABS: Anion Gap 9 meq/L (5-15); Blood Urea Nitrogen 11 mg/dL (7-18); Calcium 8.5 mg/dL (8.5-10.1); Carbon Dioxide 24.6 meq/L (21.0-32.0); Chloride 101 meq/L (98-107); Glomerular Filtration Rate Greater Than 89 mL/min (>89); Glucose,Random 159 mg/dL (74-106); Sodium 135 meq/L (136-145)
--- NOTE | 2018-05-18 12:14 | P.PNIM ---
Subjective Interval history: Slight improvement in nausea. No vomiting. Patient able to tolerate low- volume liquids at this point. Appetite has not returned. Physical Exam Vital signs: Vital Signs 05/17/18 12:14 05/17/18 17:17 05/17/18 18:51 Temperature 97.7 F 97.4 F L Pulse Rate 69 78 Respiratory Rate 18 16 Blood Pressure 147/80 H 132/68 Pulse Oximetry 100 05/17/18 20:00 05/17/18 22:17 05/17/18 22:58 Temperature 97.7 F Pulse Rate 67 74 Respiratory Rate 18 18 Blood Pressure 132/72 Pulse Oximetry 99 05/17/18 23:56 05/18/18 00:00 05/18/18 01:34 Temperature 97.7 F Pulse Rate 57 L 67 Respiratory Rate 18 17 Blood Pressure 132/72 Pulse Oximetry 99 05/18/18 04:00 05/18/18 04:07 05/18/18 08:00 Temperature 98.1 F 97.8 F Pulse Rate 65 60 80 Respiratory Rate 18 18 Blood Pressure 134/74 121/68 Pulse Oximetry 98 99 05/18/18 09:00 Temperature Pulse Rate 67 Respiratory Rate Blood Pressure Pulse Oximetry Intake & Output 05/17/18 05/18/18 05/18/18 18:59 06:59 18:59 Intake Total 1000 / 1000 1200 / 1200 Output Total 325 / 325 Balance 1000 / 1000 875 / 875 Weight 72.575 kg 72.575 kg Intake: IV 1000 / 1000 1200 / 1200 NS Inj 1,000 ML @ 100 mls/hr IV 1000 / 1000 .CONT .Q10H ARUN Rx#:[id number] KCl 20 mEq Premix Inj 20 meq In 200 / 200 100 ml @ 50 mls/hr IV.SIG Q2H ARUN Rx#:[id number] NS Inj 1,000 ML @ Wide Open IV. 1000 / 1000 SIG BOLUS ONE Rx#:[id number] Output: Urine 325 / 325 Other: Date of Last Bowel Movement 05/17/18 05/17/18 Weight On Admission 72.575 kg Narrative: GENERAL: NAD, A&Ox3, patient appears uncomfortable due to nausea HEAD: Normocephalic. NECK: Supple, trachea midline. No lymphadenopathy. EYES: No scleral icterus. No injection or drainage. CARDIOVASCULAR: Regular rate and rhythm without murmurs, gallops, or rubs. RESPIRATORY: Breath sounds equal bilaterally. No accessory muscle use. GASTROINTESTINAL: Abdomen soft, non-tender, nondistended. MUSCULOSKELETAL: No cyanosis, or edema. SKIN: Warm and dry. NEURO: No focal neurological deficits. Results - Labs CBC & Chem 7: 05/18/18 11:31 05/17/18 13:10 Laboratory Results - last 24 hr 05/17/18 05/17/18 05/17/18 13:10 13:10 13:10 WBC 11.3 H RBC 4.02 L Hgb 13.5 Hct 39.5 MCV 98.3 MCH 33.6 MCHC 34.1 RDW 15.4 Plt Count 154 MPV 9.7 Neut % (Auto) 85.0 H Lymph % (Auto) 6.5 L [place] % (Auto) 8.2 H Eos % (Auto) 0.1 Baso % (Auto) 0.2 Neut # (Auto) 9.6 H Lymph # (Auto) 0.7 L [place] # (Auto) 0.9 Eos # (Auto) 0.0 Baso # (Auto) 0.0 WBC Differential . Differential Comment Auto diff final Sodium 136 Potassium 3.2 L Chloride 101 Carbon Dioxide 23.5 Anion Gap 12 BUN 10 Creatinine 0.58 L Estimated GFR Greater than 89 Random Glucose 113 H Lactic Acid 1.3 Calcium 8.5 Magnesium 1.8 Total Bilirubin 1.1 H AST 52 H ALT 132 H Alkaline Phosphatase 247 H Total Protein 7.1 Albumin 3.8 Lipase 373 Urine Color Urine Clarity Urine pH Ur Specific [place] Urine Protein Urine Glucose (UA) Urine Ketones Urine Occult Blood Urine Nitrate Urine Bilirubin Urine Urobilinogen Ur Leukocyte Esterase Urine RBC Urine WBC Amorphous Sediment Urine Mucus Micro UA Comment Ur Microscopic Review Urine Culture Comments 05/17/18 05/18/18 17:05 11:31 WBC 4.2 D RBC 4.02 L Hgb 13.5 Hct 40.4 MCV 100.4 H MCH 33.6 MCHC 33.5 RDW 15.4 Plt Count 148 L MPV 9.5 Neut % (Auto) Lymph % (Auto) [place] % (Auto) Eos % (Auto) Baso % (Auto) Neut # (Auto) Lymph # (Auto) [place] # (Auto) Eos # (Auto) Baso # (Auto) WBC Differential Differential Comment Sodium Potassium Chloride Carbon Dioxide Anion Gap BUN Creatinine Estimated GFR Random Glucose Lactic Acid Calcium Magnesium Total Bilirubin AST ALT Alkaline Phosphatase Total Protein Albumin Lipase Urine Color Yellow Urine Clarity Hazy H Urine pH 6.0 Ur Specific [place] 1.023 Urine Protein Negative Urine Glucose (UA) Negative Urine Ketones 20 Urine Occult Blood Small H Urine Nitrate Negative Urine Bilirubin Negative Urine Urobilinogen 4 or greater Ur Leukocyte Esterase Negative Urine RBC 2 Urine WBC 1 Amorphous Sediment Few H Urine Mucus Few H Micro UA Comment Culture not ind Ur Microscopic Review Not Reportable Urine Culture Comments Culture not ind - Imaging Impressions Abdomen X-Ray 05/17/18 13:02 CONCLUSION: Unremarkable study except for stool. Chest X-Ray 05/17/18 13:02 CONCLUSION: No acute cardiopulmonary disease. Assessment and Plan - Assessment (1) Intractable nausea and vomiting Code(s): R11.2 - Nausea with vomiting, unspecified Status: Acute (2) Dehydration Code(s): E86.0 - Dehydration Status: Acute (3) Hypokalemia Code(s): E87.6 - Hypokalemia Status: Acute - Plan 52-year-old male with metastatic colon cancer including liver metastasis, admitted secondary to hyperemesis which appears related to chemotherapy Colon cancer Liver metastasis Left flank pain Transaminitis Immunocompromise Active chemotherapy No acute concerns on imaging continue baseline management Oncology following Hyperemesis Related to cancer and chemotherapy Continue IV hydration Advance diet as tolerated Continue antiemetics We will transition eventually to oral antiemetics and determined that this will help patient's nausea prior to discharge DVT prophylaxis SCDs
[2018-05-18] MEDS: oxyCODONE/Acetaminophen 10/325 Tablet PO PRN (13:09)
[2018-05-18] MEDS ORDERED: HYDROmorphone PF Inj 2 MG/ML Vial IV.PUSH PRN (13:50)
[2018-05-18] MEDS: HYDROmorphone PF Inj 2 MG/ML Vial IV.PUSH PRN (14:36)
[2018-05-18] MEDS ORDERED: Gadobutrol PF 10 MMOL/10 ML Vial (for RAD) IV.SIG ONE ×2 (16:47→20:32)
--- NOTE | 2018-05-18 17:11 | P.CONGI ---
History of Present Illness Consult date: 05/18/18 Consult reason: Abdominal pain/nausea/vomiting Chief complaint: intractable vomiting, dehydration History of Present Illness: This is a 52 yo M with PMH significant for colon cancer S/P sigmoid colectomy with metastasis to the liver who is currently undergoing IV chemotherapy treatment being managed by Dr. Baumann. Pt presented to the ER with complaints of left sided abdominal pain, has had multiple CTs outpatient over the past week with no acute findings for this pain. Pt reports pain is intermittent, not improved with home prescription for Hydrocodone. Also complaining of nausea and vomiting, has been chronic since being started on chemotherapy but has increased in frequency. Denies hematemesis and coffee ground emesis. Also complaining of excessive burping and heartburn lately, has been taking Zantac and 's prescription for PPI with little relief in symptoms. Last EGD was reportedly awhile ago and pts is unsure of any abnormal findings. <Jaimie Arce - Last Filed: 05/18/18 17:12> Review of Systems Gastrointestinal: Reports abdominal pain, Reports nausea, Reports vomiting, Denies change in bowel habits, Denies vomiting blood <Jaimie Arce - Last Filed: 05/18/18 17:12> PMFSH - History History Provided By: Patient - Medical History Medical History: Medical History (Last Reviewed 05/17/18 @ 13:34 by Ange Fox DO) Colon cancer Liver metastases Port-A-Cath in place Prostate CA - Surgical History Surgical History: Surgical History (Last Reviewed 05/17/18 @ 13:34 by Ange Fox DO) History of colon resection - Family History Family History: Family History (Last Updated 05/17/18 @ 21:14 by Panda Woods MD) Father Healthy adult Mother Healthy adult - Tobacco History Second Hand Smoke Exposure: No Smoking Status: Former smoker Tobacco Type: Cigarettes - Alcohol History How Often Do You Have a Drink Containing Alcohol: Never - Substance Use History Substance History: No History of Abuse - Travel History Recent Travel in the [place] Within the Last 8 Weeks: No Recent Travel Out of the Country Within the Last 8 Weeks: No - Immunization History Tetanus Immunization: Unsure Hx Influenza Vaccine This Season: No <Jaimie Arce - Last Filed: 05/18/18 17:12> - Medical History Medical History: Medical History (Last Reviewed 05/17/18 @ 13:34 by Ange Fox DO) Colon cancer Liver metastases Port-A-Cath in place Prostate CA - Surgical History Surgical History: Surgical History (Last Reviewed 05/17/18 @ 13:34 by Ange Fox DO) History of colon resection - Family History Family History: Family History (Last Updated 05/17/18 @ 21:14 by Panda Woods MD) Father Healthy adult Mother Healthy adult <Dot Oquendo - Last Filed: 05/18/18 17:17> Medications and Allergies Active Medications: Active Medications Acetaminophen (Tylenol) 650 mg PO Q4H PRN PRN Reason: Temp > 100.4 Al Hydroxide/Mg Hydroxide (Milk Of Magnesia Liq) 30 ml PO Q12H PRN PRN Reason: Mild Constipation Enoxaparin Sodium (Lovenox Inj) 40 mg SQ Q24H [facility] Last Admin: 05/17/18 20:42 Dose: Not Given Hydromorphone HCl (Dilaudid Pf Inj) 1 mg IV.PUSH Q4H PRN PRN Reason: Pain 7 to 10 Last Admin: 05/18/18 14:36 Dose: 1 mg Hydromorphone HCl (Dilaudid Pf Inj) 0.5 mg IV.PUSH Q4H PRN PRN Reason: Pain 3 to 6 Sodium Chloride (Ns Inj) 1,000 mls @ 100 mls/hr IV.CONT .Q10H [facility] Last Admin: 05/18/18 16:57 Dose: 100 mls/hr Methylprednisolone Sodium Succinate (Solumedrol Inj) 40 mg IV.PUSH Q8HR [facility] Last Admin: 05/18/18 13:09 Dose: 40 mg Naloxone HCl (Narcan Inj) 0.4 mg IV.PUSH UNSCH PRN PRN Reason: SEE LABEL COMMENTS Ondansetron HCl (Zofran Inj) 4 mg IV.PUSH Q6H PRN PRN Reason: NAUSEA OR VOMITING Last Admin: 05/18/18 13:10 Dose: 4 mg Oxycodone HCl (Roxicodone) 5 mg PO Q4H PRN PRN Reason: PAIN SCALE 3 TO 5 Oxycodone/Acetaminophen (Percocet 10/325 Mg) 1 tab PO Q6H PRN PRN Reason: PAIN SCALE 6 TO 10 Last Admin: 05/17/18 22:28 Dose: 1 tab <Jaimie Arce - Last Filed: 05/18/18 17:12> Active Medications: Active Medications Acetaminophen (Tylenol) 650 mg PO Q4H PRN PRN Reason: Temp > 100.4 Al Hydroxide/Mg Hydroxide (Milk Of Magnkristen Liq) 30 ml PO Q12H PRN PRN Reason: Mild Constipation Enoxaparin Sodium (Lovenox Inj) 40 mg SQ Q24H [facility] Last Admin: 05/17/18 20:42 Dose: Not Given Hydromorphone HCl (Dilaudid Pf Inj) 1 mg IV.PUSH Q4H PRN PRN Reason: Pain 7 to 10 Last Admin: 05/18/18 14:36 Dose: 1 mg Hydromorphone HCl (Dilaudid Pf Inj) 0.5 mg IV.PUSH Q4H PRN PRN Reason: Pain 3 to 6 Sodium Chloride (Ns Inj) 1,000 mls @ 100 mls/hr IV.CONT .Q10H [facility] Last Admin: 05/18/18 16:57 Dose: 100 mls/hr Methylprednisolone Sodium Succinate (Solumedrol Inj) 40 mg IV.PUSH Q8HR [facility] Last Admin: 05/18/18 13:09 Dose: 40 mg Naloxone HCl (Narcan Inj) 0.4 mg IV.PUSH UNSCH PRN PRN Reason: SEE LABEL COMMENTS Ondansetron HCl (Zofran Inj) 4 mg IV.PUSH Q6H PRN PRN Reason: NAUSEA OR VOMITING Last Admin: 05/18/18 13:10 Dose: 4 mg Oxycodone HCl (Roxicodone) 5 mg PO Q4H PRN PRN Reason: PAIN SCALE 3 TO 5 Oxycodone/Acetaminophen (Percocet 10/325 Mg) 1 tab PO Q6H PRN PRN Reason: PAIN SCALE 6 TO 10 Last Admin: 05/17/18 22:28 Dose: 1 tab <Dot Oquendo - Last Filed: 05/18/18 17:17> Allergies Allergy/AdvReac Type Severity Reaction Status Date / Time No Known Allergies Allergy Verified 05/12/18 11:34 Exam Vital signs: Vital Signs 05/17/18 17:17 05/17/18 18:51 05/17/18 20:00 Temperature 97.4 F L 97.7 F Pulse Rate 78 67 Respiratory Rate 16 18 Blood Pressure 132/68 132/72 Pulse Oximetry 99 05/17/18 22:17 05/17/18 22:58 05/17/18 23:56 Temperature Pulse Rate 74 57 L Respiratory Rate 18 Blood Pressure Pulse Oximetry 05/18/18 00:00 05/18/18 01:34 05/18/18 04:00 Temperature 97.7 F 98.1 F Pulse Rate 67 65 Respiratory Rate 18 17 18 Blood Pressure 132/72 134/74 Pulse Oximetry 99 98 05/18/18 04:07 05/18/18 08:00 05/18/18 09:00 Temperature 97.8 F Pulse Rate 60 80 67 Respiratory Rate 18 Blood Pressure 121/68 Pulse Oximetry 99 05/18/18 12:00 05/18/18 15:06 Temperature 98.9 F Pulse Rate 83 Respiratory Rate 20 18 Blood Pressure Pulse Oximetry 100 Intake & Output 05/17/18 05/18/18 05/18/18 18:59 06:59 18:59 Intake Total 1000 / 1000 1200 / 1200 1000 / 1000 Output Total 325 / 325 Balance 1000 / 1000 875 / 875 1000 / 1000 Weight 72.575 kg 72.575 kg Intake: IV 1000 / 1000 1200 / 1200 1000 / 1000 NS Inj 1,000 ML @ 100 mls/hr IV 1000 / 1000 1000 / 1000 .CONT .Q10H ARUN Rx#:[id number] KCl 20 mEq Premix Inj 20 meq In 200 / 200 100 ml @ 50 mls/hr IV.SIG Q2H ARUN Rx#:[id number] NS Inj 1,000 ML @ Wide Open IV. 1000 / 1000 SIG BOLUS ONE Rx#:[id number] Output: Urine 325 / 325 Other: Date of Last Bowel Movement 05/17/18 05/17/18 Weight On Admission 72.575 kg - Constitutional no acute distress - Routine HEENT Exam Head: Present: normocephalic, atraumatic - Routine Respiratory Exam Absent: accessory muscle use - Routine Abdominal Exam Present: soft, normoactive bowel sounds. Absent: tenderness, distended - Routine Skin Exam Present: dry, warm - Routine Neurological Exam lethargic <Jaimie Arce - Last Filed: 05/18/18 17:12> Vital signs: Vital Signs 05/17/18 17:17 05/17/18 18:51 05/17/18 20:00 Temperature 97.4 F L 97.7 F Pulse Rate 78 67 Respiratory Rate 16 18 Blood Pressure 132/68 132/72 Pulse Oximetry 99 05/17/18 22:17 05/17/18 22:58 05/17/18 23:56 Temperature Pulse Rate 74 57 L Respiratory Rate 18 Blood Pressure Pulse Oximetry 05/18/18 00:00 05/18/18 01:34 05/18/18 04:00 Temperature 97.7 F 98.1 F Pulse Rate 67 65 Respiratory Rate 18 17 18 Blood Pressure 132/72 134/74 Pulse Oximetry 99 98 05/18/18 04:07 05/18/18 08:00 05/18/18 09:00 Temperature 97.8 F Pulse Rate 60 80 67 Respiratory Rate 18 Blood Pressure 121/68 Pulse Oximetry 99 05/18/18 12:00 05/18/18 15:06 05/18/18 16:00 Temperature 98.9 F 98.7 F Pulse Rate 83 78 Respiratory Rate 20 18 18 Blood Pressure 129/76 Pulse Oximetry 100 97 Intake & Output 05/17/18 05/18/18 05/18/18 18:59 06:59 18:59 Intake Total 1000 / 1000 1200 / 1200 1000 / 1000 Output Total 325 / 325 Balance 1000 / 1000 875 / 875 1000 / 1000 Weight 72.575 kg 72.575 kg Intake: IV 1000 / 1000 1200 / 1200 1000 / 1000 NS Inj 1,000 ML @ 100 mls/hr IV 1000 / 1000 1000 / 1000 .CONT .Q10H [facility]UN Rx#:[id number] KCl 20 mEq Premix Inj 20 meq In 200 / 200 100 ml @ 50 mls/hr IV.SIG Q2H [facility]UN Rx#:[id number] NS Inj 1,000 ML @ Wide Open IV. 1000 / 1000 SIG BOLUS ONE Rx#:[id number] Output: Urine 325 / 325 Other: Date of Last Bowel Movement 05/17/18 05/17/18 Weight On Admission 72.575 kg <Dot Oquendo - Last Filed: 05/18/18 17:17> Results - Labs CBC & Chem 7: 05/18/18 11:31 05/18/18 11:31 Labs: Laboratory Results - last 24 hr 05/17/18 05/18/18 05/18/18 17:05 11:31 11:31 WBC 4.2 D RBC 4.02 L Hgb 13.5 Hct 40.4 MCV 100.4 H MCH 33.6 MCHC 33.5 RDW 15.4 Plt Count 148 L MPV 9.5 Sodium 135 L Potassium 4.0 D Chloride 101 Carbon Dioxide 24.6 Anion Gap 9 BUN 11 Creatinine 0.65 Estimated GFR Greater than 89 Random Glucose 159 H Calcium 8.5 Carcinoembryonic Ag Urine Color Yellow Urine Clarity Hazy H Urine pH 6.0 Ur Specific [place] 1.023 Urine Protein Negative Urine Glucose (UA) Negative Urine Ketones 20 Urine Occult Blood Small H Urine Nitrate Negative Urine Bilirubin Negative Urine Urobilinogen 4 or greater Ur Leukocyte Esterase Negative Urine RBC 2 Urine WBC 1 Amorphous Sediment Few H Urine Mucus Few H Micro UA Comment Culture not ind Ur Microscopic Review Not Reportable Urine Culture Comments Culture not ind 05/18/18 13:10 WBC RBC Hgb Hct MCV MCH MCHC RDW Plt Count MPV Sodium Potassium Chloride Carbon Dioxide Anion Gap BUN Creatinine Estimated GFR Random Glucose Calcium Carcinoembryonic Ag 1.8 Urine Color Urine Clarity Urine pH Ur Specific [place] Urine Protein Urine Glucose (UA) Urine Ketones Urine Occult Blood Urine Nitrate Urine Bilirubin Urine Urobilinogen Ur Leukocyte Esterase Urine RBC Urine WBC Amorphous Sediment Urine Mucus Micro UA Comment Ur Microscopic Review Urine Culture Comments <Jaimie Arce - Last Filed: 05/18/18 17:12> - Labs CBC & Chem 7: 05/18/18 11:31 05/18/18 11:31 Labs: Laboratory Results - last 24 hr 05/17/18 05/18/18 05/18/18 17:05 11:31 11:31 WBC 4.2 D RBC 4.02 L Hgb 13.5 Hct 40.4 MCV 100.4 H MCH 33.6 MCHC 33.5 RDW 15.4 Plt Count 148 L MPV 9.5 Sodium 135 L Potassium 4.0 D Chloride 101 Carbon Dioxide 24.6 Anion Gap 9 BUN 11 Creatinine 0.65 Estimated GFR Greater than 89 Random Glucose 159 H Calcium 8.5 Carcinoembryonic Ag Urine Color Yellow Urine Clarity Hazy H Urine pH 6.0 Ur Specific [place] 1.023 Urine Protein Negative Urine Glucose (UA) Negative Urine Ketones 20 Urine Occult Blood Small H Urine Nitrate Negative Urine Bilirubin Negative Urine Urobilinogen 4 or greater Ur Leukocyte Esterase Negative Urine RBC 2 Urine WBC 1 Amorphous Sediment Few H Urine Mucus Few H Micro UA Comment Culture not ind Ur Microscopic Review Not Reportable Urine Culture Comments Culture not ind 05/18/18 13:10 WBC RBC Hgb Hct MCV MCH MCHC RDW Plt Count MPV Sodium Potassium Chloride Carbon Dioxide Anion Gap BUN Creatinine Estimated GFR Random Glucose Calcium Carcinoembryonic Ag 1.8 Urine Color Urine Clarity Urine pH Ur Specific [place] Urine Protein Urine Glucose (UA) Urine Ketones Urine Occult Blood Urine Nitrate Urine Bilirubin Urine Urobilinogen Ur Leukocyte Esterase Urine RBC Urine WBC Amorphous Sediment Urine Mucus Micro UA Comment Ur Microscopic Review Urine Culture Comments <Dot Oquendo - Last Filed: 05/18/18 17:17> Assessment and Plan - Plan Assessment: - Nausea/vomiting/left sided abdominal pain Pt is very lethargic, therefore most history has been obtained through sitting at bedside. States pt has been having left sided abdominal pain for a long time, unable to say how long, pain is intermittent, not improved with home prescription for Hydrocodone. Reports nausea and vomiting has been chronic since being on IV chemo but states that the frequency of the vomiting has increased and is now more often than chemo treatments every other week. Last tx was the day before arrival to hospital. Pt also reports a lot of burping and heartburn lately, has taken Zantac and his 's prescription for PPI with minimal relief. Last EGD was a long time ago, unsure of abnormal findings Multiple CT abdomen/pelvis done with no acute findings for left sided pain - Colon cancer with metastasis to liver S/P sigmoid colectomy- on IV chemo every other week- oncologist is Dr. Baumann - Elevated LFTs secondary to metastasis Plan: EGD tomorrow Obtain consent NPO after MN Antiemetics PRN Supportive care Further recommendations to follow Pt has been seen and examined by myself and Dr. Oquendo and this note is written on his behalf <Jaimie Arce - Last Filed: 05/18/18 17:12> - Plan Seen and examined with [employer] ENGINEERING TECHNICIAN, discussed with at the bedside. Egd planned for tomorrow. Dr Smith will follow. Thank you The exam, history, and the medical decision-making described in the above note were completed with the assistance of the mid-level provider. I reviewed and agree with the findings presented. I attest that I had a [id number] encounter with the patient on the same day, and personally performed and documented my assessment and findings in the medical record. <Dot Oquendo - Last Filed: 05/18/18 17:17>
[2018-05-18] MEDS: Enoxaparin Inj 40 MG/0.4 ML Syringe SQ SCH (20:41)
--- NOTE | 2018-05-18 20:45 | MR ---
EXAM DATE: 05/18/2018 8:27 PM EDT AGE/SEX: 52 years / Male INDICATIONS: Liver mass. Left flank pain. nausea/vomiting. CLINICAL DATA: This is the patient's initial encounter. Patient reports that signs and symptoms have been present for 4 - 6 days and indicates a pain score of 5/10. MEDICAL/SURGICAL HISTORY: Carcinoma, colon. Carcinoma, prostatic. Colon resection. COMPARISON: [facility], CT ABDOMEN & PELVIS W/O CONTRAST, 05/15/2018. [facility], CT ABDOMEN AND PELVIS W/ CON TRAST, 05/10/2018. [facility], CT ABDOMEN & PELVIS W CONTRAST, 10/16/2017. . TECHNIQUE: Multiplanar, multisequence images of the abdomen were obtained prior to and following adm inistration of 7 ml Gadavist (gadobutrol) contrast as a single exam dose with dynamic multiphase tech nique. FINDINGS: Liver: There are 2 focal masses seen in the liver. These are both in the anterior segment of the righ t lobe of the liver. The larger mass is seen close to the shilpa hepatis measuring 2.6 and measures. T he smaller mass is seen at the lateral periphery of the right lobe measuring 2.2 cm. These are best s een on the postcontrast images as areas that do not enhance. There is intrahepatic biliary duct dilat ation seen primarily in the right lobe. Gallbladder: On the coronal images, there appears to be a small 3 mm gallstone. This is not seen on t he axial images. Spleen: The spleen is unremarkable. Pancreas: The pancreas is unremarkable. Adrenals: The adrenal glands appear normal. Kidneys: Both kidneys appear normal with symmetric nephrograms. There is no hydronephrosis on either side. There are subcentimeter cysts seen bilaterally. Retroperitoneum: The aorta is unremarkable. There is no pathologic abdominal lymphadenopathy. CONCLUSION: 1. 2 focal masses in the right lobe of the liver. These are nonspecific. They could represent neopla stic processes including metastatic lesions given the multiplicity versus multifocal primary tumors. These have been present on prior exams. When compared to the prior CT examination from 10/16/2017 the masses are smaller. This would suggest good response to treatment. This should be correlated with the patient's history. 2. Suspected small 3 mm gallstone. 3. Subcentimeter renal cysts. Electronically signed by: Prince Quintero MD 05/18/2018 8:44 PM EDT
--- NOTE | 2018-05-19 00:33 | MB ---
cc: Eugenio Baumann MD DATE: 05/18/2018 REASON FOR CONSULTATION: Consult requested by hospitalist for evaluation of colon cancer in a patient who is admitted with left-sided abdominal pain, nausea and vomiting. HISTORY OF PRESENT ILLNESS: Octavio is a 52-year-old male. He was diagnosed with metastatic colon cancer in 05/2014. The patient has been treated with multiple courses of chemotherapy since then. The patient is currently on Avastin and modified FOLFIRI chemotherapy since October 2017. A restaging CAT scan of the chest, abdomen, and pelvis was done in january 2018 which showed that there was interval decrease in the size of 2 liver masses and retroperitoneal and retrocaval lymphadenopathy was also getting smaller. I have recommended to continue with the chemotherapy. However, the patient had developed nausea, vomiting with the chemotherapy and it was modified. The doses of the chemotherapy have been reduced to 50% and subsequently the 5-FU pump was stopped due to the toxicity. Another restaging CT scan of the chest, abdomen, and pelvis was done on 05/10/2018, which showed stable disease. Both the liver masses and retroperitoneal lymphadenopathy appear to be getting smaller. There were no new masses noted. The patient has been having left-sided abdominal pain associated with nausea and vomiting. He came to the emergency room on 05/12/2018. A CT scan of the abdomen and pelvis with IV contrast did not show any acute findings. This was compared to the CT scan 2 days prior at [facility]. The patient came back again to the emergency room on 05/15/2018 with similar complaints. This time, he got the CT scan of the abdomen and pelvis without IV contrast. This did not show any acute findings, either. He was discharged to home. The patient came into the office 2 days ago. At that time, he stated that his pain had improved and he did not have vomiting. He has some nausea. I have advised him to hold off on his chemotherapy. However, the patient did not want to do that. He does not want to delay his chemotherapy, knowing that it is working and the cancer is getting better. He had received Avastin and modified FOLFIRI chemotherapy 2 days ago. The patient started having, again, the same left-sided abdominal pain, nausea, vomiting, unable to eat anything and keep it down. He came to the emergency room yesterday morning. Because of his frequent visits to the emergency room with similar complaints with no relief since 1 week, it was decided that the patient should be admitted to the hospital. I have been asked to see the patient for further evaluation. The patient is still complaining of abdominal pain, mostly on the left side. He has nausea and vomiting. His mother was present at the bedside. The patient appears to be miserable. He is complaining of some chills, but does not have any fevers at the present time. The rest of the review of systems is negative. 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 PAST SURGICAL HISTORY: Upper endoscopy Infusaport placement, colonoscopy. ALLERGIES: Erbitux. MEDICATIONS: Atorvastatin and modified FOLFIRI chemotherapy, Emend. FAMILY HISTORY: The patient's father has . His mother is still alive. He has a sister and 1 son. He does not have any brothers or daughters. SOCIAL HISTORY: The patient is single. His several years ago. He used to work in construction. He does not smoke cigarettes. He used to drink alcohol. PHYSICAL EXAMINATION: GENERAL: Reveals a well-developed, well-nourished, ill-appearing white male. VITAL SIGNS: Temperature 98.9, heart rate is 83, blood pressure 129/76, O2 saturation 97%. HEENT: PERRLA. EOMI, anicteric. No oral lesions noted. NECK: No lymphadenopathy noted. LUNGS: Clear. No wheezing, rhonchi or rales. CARDIOVASCULAR: Regular rate and rhythm. ABDOMEN: Tenderness noted in the left side of the abdomen. EXTREMITIES: No pedal edema. NEUROLOGIC: Awake, alert, oriented x3. SKIN: No significant lesions noted. ASSESSMENT: 1. Intractable nausea, vomiting and left-sided abdominal pain. I do not think that this is related to his present chemotherapy. 2. Metastatic colon cancer, which was diagnosed in 2013. The patient has been on multiple lines of chemotherapy. PLAN: I have reviewed his available records, and I have discussed with the patient and his mother at the bedside regarding the abdominal pain associated with nausea and vomiting. He had 3 CT scans of the abdomen and pelvis within the last 1 week. He had a CT scan of the abdomen and pelvis on 05/10/2018 at [facility], then he had a CT scan of the abdomen and pelvis on 05/12/2018 and 05/15/2018 at [facility] when he came in to the emergency room on [address] scans failed to show the cause of his abdominal pain. My recommendation is to get the MRI of the abdomen to evaluate for the left-sided abdominal pain. I will also consult GI for further evaluation, as he may need upper endoscopy and possible colonoscopy. We also reviewed his blood test results, the CBC showed white count of 4.2, hemoglobin 13.5, platelet count is 148. The comprehensive metabolic profile yesterday showed that the AST is 52, ALT is 132, and alkaline phosphatase is 247. They are high, but pretty much stable. I will order a CEA level tumor marker. At this point, the cause of persistent left-sided abdominal pain is unknown. I do not think that the retroperitoneal lymphadenopathy is causing the abdominal pain. He had this for quite some time and, with the chemotherapy, this is definitely improving. The patient and his mother seem to be very frustrated with the situation. He had multiple scans which failed to reveal the cause of the abdominal pain. I did examine his skin in that area and there is no evidence of rash similar to shingles. The patient is unable to tolerate oral narcotics, and I suggested that we should convert this into the IV narcotics. I have discussed this with the patient's nurse. She stated that she just spoke to the patient's admitting physician who had given her order for IV Dilaudid to control the pain. This is very appropriate. The patient and his mother have several questions and these were answered to their satisfaction. Dr. Carreno my associate is crayon sorting machine feeder this weekend and she will see the patient and will manage him for the weekend. Thank you for asking my opinion. MD LYNNETTE Pérez/kendra/ , 10:21 PM , 10:46 PM ROMA
[2018-05-19] MEDS: HYDROmorphone PF Inj 2 MG/ML Vial IV.PUSH PRN ×2 (01:09→13:37)
[2018-05-19] MEDS ORDERED: Metoprolol Tartrate 25 MG Tablet PO ONE (03:16)
[2018-05-19] MEDS ORDERED: Chlorhexidine Gluconate 2% 1 Pack (2 Cloths) TOPICAL ONE (03:16)
[2018-05-19] MEDS ORDERED: Sodium Chlor 0.9% Inj 500 ML IV.SIG SCH (04:00)
[2018-05-19] MEDS: Sod Chloride 0.9% Inj 1,000 ML IV.CONT SCH ×3 (04:51→22:59)
[2018-05-19] MEDS: MethylPREDNISolone Sod Succinate Inj 40 MG/ML Vial IV.PUSH SCH ×3 (05:00→22:41)
[2018-05-19 07:49] LABS: Baso % (Auto) 0.1 % (0.0-2.0); Hematocrit 37.1 % (39.0-51.0); Hemoglobin 12.7 gm/dL (13.0-17.0); Lymph # (Auto) 1.2 th/mm3 (1.0-4.8); Lymph % (Auto) 21.4 % (9.0-44.0); Mean Corpuscular HGB Conc 34.3 % (32.0-36.0); Mean Corpuscular Hemoglobin 33.9 pg (27.0-34.0); Mean Corpuscular Volume 98.9 fL (80.0-100.0); Mean Platelet Volume 10.2 fL (7.0-11.0); Mono # (Auto) 0.3 th/mm3 (0.0-0.9); Mono % (Auto) 6.1 % (0.0-8.0); Neut % (Auto) 72.4 % (16.0-70.0); Platelet Count 134 th/mm3 (150-450); Red Blood Count 3.75 mil/mm3 (4.50-5.90); Red Cell Distribution Width 15.2 % (11.6-17.2); White Blood Count 5.5 th/mm3 (4.0-11.0)
[2018-05-19 08:01] LABS: Albumin 3.2 g/dL (3.4-5.0); Anion Gap 10 meq/L (5-15); Aspartate Aminotransferase 17 U/L (15-37); Blood Urea Nitrogen 11 mg/dL (7-18); Calcium 8.2 mg/dL (8.5-10.1); Carbon Dioxide 25.5 meq/L (21.0-32.0); Chloride 102 meq/L (98-107); Glomerular Filtration Rate Greater Than 89 mL/min (>89); Glucose,Random 108 mg/dL (74-106); Potassium 3.8 meq/L (3.5-5.1); Sodium 137 meq/L (136-145)
[2018-05-19 08:04] LABS: Alanine Aminotransferase 80 U/L (12-78); Alkaline Phosphatase 188 U/L (45-117); Total Protein 6.3 g/dL (6.4-8.2)
--- NOTE | 2018-05-19 09:55 | P.PNIM ---
Subjective Interval history: Patient had another episode of nausea vomiting last night. This has settled overnight. Currently patient is n.p.o. An MRI of the abdomen and EGD are pending for today. No other complaints today. Physical Exam Vital signs: Vital Signs 05/18/18 12:00 05/18/18 15:06 05/18/18 16:00 Temperature 98.9 F 98.7 F Pulse Rate 83 78 Respiratory Rate 20 18 18 Blood Pressure 129/76 Pulse Oximetry 100 97 05/18/18 19:08 05/18/18 23:35 05/18/18 23:48 Temperature 98.3 F 98.7 F Pulse Rate 75 72 67 Respiratory Rate 18 18 Blood Pressure 132/66 138/79 Pulse Oximetry 95 96 05/19/18 01:29 05/19/18 03:16 Temperature 97.9 F Pulse Rate 68 Respiratory Rate 18 18 Blood Pressure 130/72 Pulse Oximetry 94 L Intake & Output 05/18/18 05/19/18 05/19/18 18:59 06:59 18:59 Intake Total 1000 / 1000 1360 / 1360 Balance 1000 / 1000 1360 / 1360 Weight 72.5 kg Intake: IV 1000 / 1000 1000 / 1000 NS Inj 1,000 ML @ 100 mls/hr IV 1000 / 1000 1000 / 1000 .CONT .Q10H ARUN Rx#:[id number] Oral 360 / 360 Other: # Voids 3 Date of Last Bowel Movement 05/17/18 05/17/18 # Bowel Movements 0 Narrative: GENERAL: NAD, A&Ox3, patient appears uncomfortable due to nausea HEAD: Normocephalic. NECK: Supple, trachea midline. No lymphadenopathy. EYES: No scleral icterus. No injection or drainage. CARDIOVASCULAR: Regular rate and rhythm without murmurs, gallops, or rubs. RESPIRATORY: Breath sounds equal bilaterally. No accessory muscle use. GASTROINTESTINAL: Abdomen soft, non-tender, nondistended. MUSCULOSKELETAL: No cyanosis, or edema. SKIN: Warm and dry. NEURO: No focal neurological deficits. Results - Labs CBC & Chem 7: 05/19/18 06:20 05/19/18 06:20 Laboratory Results - last 24 hr 05/18/18 05/18/18 05/18/18 11:31 11:31 13:10 WBC 4.2 D RBC 4.02 L Hgb 13.5 Hct 40.4 MCV 100.4 H MCH 33.6 MCHC 33.5 RDW 15.4 Plt Count 148 L MPV 9.5 Neut % (Auto) Lymph % (Auto) [place] % (Auto) Eos % (Auto) Baso % (Auto) Neut # (Auto) Lymph # (Auto) [place] # (Auto) Eos # (Auto) Baso # (Auto) WBC Differential Differential Comment Sodium 135 L Potassium 4.0 D Chloride 101 Carbon Dioxide 24.6 Anion Gap 9 BUN 11 Creatinine 0.65 Estimated GFR Greater than 89 Random Glucose 159 H Calcium 8.5 Total Bilirubin AST ALT Alkaline Phosphatase Total Protein Albumin Carcinoembryonic Ag 1.8 05/19/18 05/19/18 06:20 06:20 WBC 5.5 RBC 3.75 L Hgb 12.7 L Hct 37.1 L MCV 98.9 MCH 33.9 MCHC 34.3 RDW 15.2 Plt Count 134 L MPV 10.2 Neut % (Auto) 72.4 H Lymph % (Auto) 21.4 [place] % (Auto) 6.1 Eos % (Auto) 0.0 Baso % (Auto) 0.1 Neut # (Auto) 4.0 Lymph # (Auto) 1.2 [place] # (Auto) 0.3 Eos # (Auto) 0.0 Baso # (Auto) 0.0 WBC Differential . Differential Comment Auto diff final Sodium 137 Potassium 3.8 Chloride 102 Carbon Dioxide 25.5 Anion Gap 10 BUN 11 Creatinine 0.58 L Estimated GFR Greater than 89 Random Glucose 108 H Calcium 8.2 L Total Bilirubin 0.7 AST 17 ALT 80 H Alkaline Phosphatase 188 H Total Protein 6.3 L D Albumin 3.2 L D Carcinoembryonic Ag - Imaging Impressions Abdomen MRI 05/18/18 00:00 CONCLUSION: 1. 2 focal masses in the right lobe of the liver. These are nonspecific. They could represent neoplastic processes including metastatic lesions given the multiplicity versus multifocal primary tumors. These have been present on prior exams. When compared to the prior CT examination from 10/16/2017 the masses are smaller. This would suggest good response to treatment. This should be correlated with the patient's history. 2. Suspected small 3 mm gallstone. 3. Subcentimeter renal cysts. Assessment and Plan - Assessment (1) Intractable nausea and vomiting Code(s): R11.2 - Nausea with vomiting, unspecified Status: Acute (2) Dehydration Code(s): E86.0 - Dehydration Status: Acute (3) Hypokalemia Code(s): E87.6 - Hypokalemia Status: Acute - Plan 52-year-old male with metastatic colon cancer including liver metastasis, admitted secondary to hyperemesis which appears related to chemotherapy EGD and MRI of abdomen today. Patient n.p.o. for now. He does report her appetite has returned. Plan for trial resumption of p.o. intake after procedures are completed, if no abnormal pathology contraindicated p.o. intake. Colon cancer Liver metastasis Left flank pain Transaminitis Immunocompromise Active chemotherapy No acute concerns on imaging continue baseline management Oncology following Hyperemesis Related to cancer and chemotherapy Continue IV hydration Advance diet as tolerated Continue antiemetics We will transition eventually to oral antiemetics and determined that this will help patient's nausea prior to discharge DVT prophylaxis SCDs
--- NOTE | 2018-05-19 12:18 | P.PNONC ---
Subjective Interval history: Afebrile Patient reports he is hungry Awaiting to go downstairs for EGD Patient's mom at bedside asking if he can just have "a little cracker or something" before he goes Objective Vital Signs/Intake & Output: Vital Signs 05/18/18 15:06 05/18/18 16:00 05/18/18 19:08 Temperature 98.7 F 98.3 F Pulse Rate 78 75 Respiratory Rate 18 18 18 Blood Pressure 129/76 132/66 Pulse Oximetry 97 95 05/18/18 23:35 05/18/18 23:48 05/19/18 01:29 Temperature 98.7 F Pulse Rate 72 67 Respiratory Rate 18 18 Blood Pressure 138/79 Pulse Oximetry 96 05/19/18 03:16 05/19/18 08:00 Temperature 97.9 F 98.1 F Pulse Rate 68 61 Respiratory Rate 18 12 Blood Pressure 130/72 139/83 Pulse Oximetry 94 L 96 Intake & Output 05/18/18 05/19/18 05/19/18 18:59 06:59 18:59 Intake Total 1000 / 1000 1360 / 1360 Balance 1000 / 1000 1360 / 1360 Weight 159 lb 13.362 oz Intake: IV 1000 / 1000 1000 / 1000 NS Inj 1,000 ML @ 100 mls/hr IV 1000 / 1000 1000 / 1000 .CONT .Q10H ARUN Rx#:[id number] Oral 360 / 360 Other: # Voids 3 Date of Last Bowel Movement 05/17/18 05/17/18 05/18/18 # Bowel Movements 0 Result Diagrams: 05/19/18 06:20 05/19/18 06:20 Laboratory Results: Laboratory Results - last 24 hr 05/18/18 05/18/18 05/19/18 11:31 13:10 06:20 WBC 5.5 RBC 3.75 L Hgb 12.7 L Hct 37.1 L MCV 98.9 MCH 33.9 MCHC 34.3 RDW 15.2 Plt Count 134 L MPV 10.2 Neut % (Auto) 72.4 H Lymph % (Auto) 21.4 [place] % (Auto) 6.1 Eos % (Auto) 0.0 Baso % (Auto) 0.1 Neut # (Auto) 4.0 Lymph # (Auto) 1.2 [place] # (Auto) 0.3 Eos # (Auto) 0.0 Baso # (Auto) 0.0 WBC Differential . Differential Comment Auto diff final Sodium 135 L Potassium 4.0 D Chloride 101 Carbon Dioxide 24.6 Anion Gap 9 BUN 11 Creatinine 0.65 Estimated GFR Greater than 89 Random Glucose 159 H Calcium 8.5 Total Bilirubin AST ALT Alkaline Phosphatase Total Protein Albumin Carcinoembryonic Ag 1.8 05/19/18 06:20 WBC RBC Hgb Hct MCV MCH MCHC RDW Plt Count MPV Neut % (Auto) Lymph % (Auto) [place] % (Auto) Eos % (Auto) Baso % (Auto) Neut # (Auto) Lymph # (Auto) [place] # (Auto) Eos # (Auto) Baso # (Auto) WBC Differential Differential Comment Sodium 137 Potassium 3.8 Chloride 102 Carbon Dioxide 25.5 Anion Gap 10 BUN 11 Creatinine 0.58 L Estimated GFR Greater than 89 Random Glucose 108 H Calcium 8.2 L Total Bilirubin 0.7 AST 17 ALT 80 H Alkaline Phosphatase 188 H Total Protein 6.3 L D Albumin 3.2 L D Carcinoembryonic Ag Imaging Studies: Impressions Abdomen MRI 05/18/18 00:00 CONCLUSION: 1. 2 focal masses in the right lobe of the liver. These are nonspecific. They could represent neoplastic processes including metastatic lesions given the multiplicity versus multifocal primary tumors. These have been present on prior exams. When compared to the prior CT examination from 10/16/2017 the masses are smaller. This would suggest good response to treatment. This should be correlated with the patient's history. 2. Suspected small 3 mm gallstone. 3. Subcentimeter renal cysts. Medications: Active Medications Generic Name Dose Route Start Last Admin Trade Name Freq PRN Reason Stop Dose Admin Enoxaparin Sodium 40 mg 05/17/18 20:00 05/18/18 20:41 Lovenox Inj SQ 40 mg Q24H ARUN Administration Hydromorphone HCl 1 mg 05/18/18 13:50 05/19/18 01:09 Dilaudid Pf Inj IV.PUSH 1 mg Q4H PRN Administration Pain 7 to 10 Sodium Chloride 1,000 mls @ 100 mls/hr 05/17/18 20:00 05/19/18 04:51 Ns Inj IV.CONT 100 mls/hr .Q10H ARUN Administration Sodium Chloride 500 mls @ 30 mls/hr 05/19/18 04:00 05/19/18 04:28 Ns Inj IV.SIG Not Given .Q10H ARUN Methylprednisolone Sodium Succinate 40 mg 05/17/18 22:00 05/19/18 05:00 Solumedrol Inj IV.PUSH 40 mg Q8HR ARUN Administration Ondansetron HCl 4 mg 05/17/18 18:23 05/18/18 20:41 Zofran Inj IV.PUSH 4 mg Q6H PRN Administration NAUSEA OR VOMITING Oxycodone/Acetaminophen 1 tab 05/17/18 21:17 05/17/18 22:28 Percocet 10/325 Mg PO 1 tab Q6H PRN Administration PAIN SCALE 6 TO 10 Objective Remarks: GENERAL: Middle-age male resting in bed with eyes closed. He wakens easily to verbal stimuli. SKIN: Warm and dry. HEAD: Normocephalic. EYES: No scleral icterus. No injection or drainage. NECK: Supple, trachea midline. No JVD or lymphadenopathy. CARDIOVASCULAR: Regular rate and rhythm without murmurs. RESPIRATORY: Clear anteriorly. Breathing unlabored at rest. GASTROINTESTINAL: Abdomen soft. Tender with palpation to left quadrants EXTREMITIES: No cyanosis, or edema. MUSCULOSKELETAL: Generalized weakness NEUROLOGICAL: No obvious focal deficit. Awake, alert, and oriented x3. Assessment/Plan - Plan 52-year-old male with history of metastatic colon cancer that was diagnosed in 2013. Patient has been on multiple lines of treatment since that time. He is currently on Avastin with modified FOLFIRI chemotherapy since October 2017. Restaging scans have showed decrease in size of liver masses as well as decreasing size of lymphadenopathy. The patient began having left-sided abdominal pain associated with nausea and vomiting and has had several CT scans of the abdomen and pelvis that did not show any acute findings. He was seen outpatient last week with again complaints of increased left-sided abdominal pain and was instructed to come to the emergency room. MRI was ordered to evaluate for pain and GI was consulted. 1. Patient reports pain is improved with as needed IV Dilaudid. 2. I discussed with patient's mom is very important for patient not to have any oral intake prior to EGD today. Reviewed that with there were no new findings on MRI. 3. Await EGD results 4. Continue supportive care. - Attending Statement The exam, history, and the medical decision-making described in the above note were completed with the assistance of the mid-level provider. I reviewed and agree with the findings presented. I attest that I had a [id number] encounter with the patient on the same day, and personally performed and documented my assessment and findings in the medical record. Nausea is better controlled. He is awaiting GI procedure this morning. Mother at bedside. Discussed continued support with IV fluid hydration and antiemetic therapy. He feels that the above is adequate.
--- NOTE | 2018-05-19 14:53 | GIPROC ---
[facility] [address] [facility]. [facility] [place], [address] EGD PROCEDURE REPORT EXAM DATE: 05/19/2018 PATIENT NAME: Octavio Serrano MR #: [id number] BIRTHDATE: 1965 ATTENDING: Carlo Smith MD ORDER #: [id number] MACHINE PECAN PICKER: Yesenia Correa and Juany Griffith STATUS: inpatient INDICATIONS: The patient is a 52 yr old male here for an EGD due to vomiting and nausea PROCEDURE PERFORMED: EGD w/ biopsy MEDICATIONS: None and Per Anesthesia. TOPICAL ANESTHETIC: none CONSENT: The patient understands the risks and benefits of the procedure and understands that these risks include, but are not limited to: sedation, allergic reaction, infection, perforation and/or bleeding. Alternative means of evaluation and treatment include, among others: physical exam, x-rays, and/or surgical intervention. The patient elects to proceed with this endoscopic procedure. medical equipment was checked for proper function. Hand hygiene and appropriate measures for infection prevention was taken. After the risks, benefits and alternatives of the procedure were thoroughly explained, Informed consent was verified, confirmed and timeout was successfully executed by the treatment team. The patient was anesthetized with topical anesthesia and the Psonarax [id number] endoscope was introduced through the mouth and advanced to the second portion of the duodenum. Retroflexed views revealed a hiatal hernia The gastroscope was then slowly withdrawn and removed. ESOPHAGUS: There was LA Class C esophagitis noted. Multiple biopsies were performed. STOMACH: The mucosa of the stomach appeared normal. DUODENUM: A small non-bleeding non-bleeding, round and clean-based ulcer was found in the 3rd part of the duodenum. ADVERSE EVENTS: There were no complications. IMPRESSIONS: 1. There was LA Class C esophagitis noted; multiple biopsies were performed 2. The mucosa of the stomach appeared normal 3. Small non-bleeding ulcer was found in the 3rd part of the duodenum 4. Retroflexed views revealed a hiatal hernia RECOMMENDATIONS: 1. Await biopsy results. Biopsy results will not be ready for 7-10 days. If you don't hear from us in two weeks, call our office for biopsy results. 2. Continue PPI 3. Stool for H. Pylori antigen PATIENT CONDITION: fair DISPOSITION: Observation REPEAT EXAM: NONE Carlo Smith MD eSigned: Carlo Smith MD 05/19/2018 2:52 PM cc: PATIENT NAME: Octavio Serrano MR#: [id number]
[2018-05-19] MEDS ORDERED: fentaNYL Citrate Inj 100 MCG/2 ML Ampul ONE (15:08)
[2018-05-19] MEDS: Enoxaparin Inj 40 MG/0.4 ML Syringe SQ SCH (20:33)
[2018-05-19] MEDS: oxyCODONE/Acetaminophen 10/325 Tablet PO PRN (22:40)
[2018-05-20] MEDS: MethylPREDNISolone Sod Succinate Inj 40 MG/ML Vial IV.PUSH SCH ×3 (05:32→21:01)
[2018-05-20] MEDS: oxyCODONE/Acetaminophen 10/325 Tablet PO PRN ×2 (08:58→15:31)
[2018-05-20] MEDS: Sod Chloride 0.9% Inj 1,000 ML IV.CONT SCH ×3 (08:59→22:08)
[2018-05-20] MEDS ORDERED: LORazepam 1 MG Tablet PO PRN (09:23)
--- NOTE | 2018-05-20 09:28 | P.PNIM ---
Subjective Interval history: EGD showed small ulcer and esophagitis. Patient has some relative improvement in his nausea today. We agreed to try to shift towards oral treatments for maintenance of his nausea. No new complaints. Physical Exam Vital signs: Vital Signs 05/19/18 12:00 05/19/18 16:00 05/19/18 19:59 Temperature 98.1 F 98.1 F Pulse Rate 62 76 71 Respiratory Rate 14 16 Blood Pressure 137/82 140/88 Pulse Oximetry 98 96 05/19/18 20:00 05/20/18 00:00 05/20/18 00:05 Temperature 97.9 F 99.4 F Pulse Rate 87 73 66 Respiratory Rate 16 18 Blood Pressure 142/85 H 138/88 Pulse Oximetry 99 99 05/20/18 00:30 05/20/18 04:00 05/20/18 06:12 Temperature 97.5 F L Pulse Rate 79 Respiratory Rate 17 20 16 Blood Pressure 145/78 H Pulse Oximetry 100 05/20/18 08:00 Temperature 98.0 F Pulse Rate 79 Respiratory Rate 16 Blood Pressure 135/83 Pulse Oximetry 99 Intake & Output 05/19/18 05/20/18 05/20/18 18:59 06:59 18:59 Intake Total 1440 / 1440 960 / 960 1000 / 1000 Output Total 550 / 550 Balance 1440 / 1440 410 / 410 1000 / 1000 Intake: IV 1000 / 1000 1000 / 1000 NS Inj 1,000 ML @ 100 mls/hr IV 1000 / 1000 1000 / 1000 .CONT .Q10H ARUN Rx#:[id number] Oral 240 / 240 960 / 960 Anesthesia Amount 200 / 200 Output: Urine 550 / 550 Other: # Voids 3 Date of Last Bowel Movement 05/18/18 05/18/18 # Bowel Movements 1 Narrative: GENERAL: NAD, A&Ox3, patient appears uncomfortable due to nausea HEAD: Normocephalic. NECK: Supple, trachea midline. No lymphadenopathy. EYES: No scleral icterus. No injection or drainage. CARDIOVASCULAR: Regular rate and rhythm without murmurs, gallops, or rubs. RESPIRATORY: Breath sounds equal bilaterally. No accessory muscle use. GASTROINTESTINAL: Abdomen soft, non-tender, nondistended. MUSCULOSKELETAL: No cyanosis, or edema. SKIN: Warm and dry. NEURO: No focal neurological deficits. Results - Labs CBC & Chem 7: 05/19/18 06:20 05/19/18 06:20 Assessment and Plan - Assessment (1) Intractable nausea and vomiting Code(s): R11.2 - Nausea with vomiting, unspecified Status: Acute (2) Dehydration Code(s): E86.0 - Dehydration Status: Acute (3) Hypokalemia Code(s): E87.6 - Hypokalemia Status: Acute - Plan 52-year-old male with metastatic colon cancer including liver metastasis, admitted secondary to hyperemesis which appears related to chemotherapy Zofran p.o. Phenergan p.o. Ativan as needed for nausea or anxiety. Continue IV Zofran as a backup. Transition to p.o. Percocet is primary pain treatment and backup IV Dilaudid as a secondary option. Continue monitoring for any recurrence of hyper emesis episodes. Colon cancer Stomach ulcer Esophagitis Liver metastasis Left flank pain Transaminitis Immunocompromise Active chemotherapy No acute concerns on imaging continue baseline management Oncology following GI following Continue PPI Hyperemesis Related to cancer and chemotherapy Continue IV hydration Advance diet as tolerated Continue antiemetics We will transition eventually to oral antiemetics and determined that this will help patient's nausea prior to discharge DVT prophylaxis SCDs
[2018-05-20] MEDS ORDERED: HYDROmorphone PF Inj 1 MG/ML Ampul IV.PUSH PRN (10:00)
[2018-05-20] MEDS ORDERED: HYDROmorphone PF Inj 2 MG/ML Vial IV.PUSH ONE (11:07)
--- NOTE | 2018-05-20 11:13 | P.PNONC ---
Subjective Interval history: Afebrile Patient sitting up in bed complaining of pain Reports he took a Percocet approximately 9 AM; this did not work as well as he hoped Reports he ate a little bit this morning Hoping to take a shower today Objective Vital Signs/Intake & Output: Vital Signs 05/19/18 12:00 05/19/18 16:00 05/19/18 19:59 Temperature 98.1 F 98.1 F Pulse Rate 62 76 71 Respiratory Rate 14 16 Blood Pressure 137/82 140/88 Pulse Oximetry 98 96 05/19/18 20:00 05/20/18 00:00 05/20/18 00:05 Temperature 97.9 F 99.4 F Pulse Rate 87 73 66 Respiratory Rate 16 18 Blood Pressure 142/85 H 138/88 Pulse Oximetry 99 99 05/20/18 00:30 05/20/18 04:00 05/20/18 06:12 Temperature 97.5 F L Pulse Rate 79 Respiratory Rate 17 20 16 Blood Pressure 145/78 H Pulse Oximetry 100 05/20/18 08:00 Temperature 98.0 F Pulse Rate 79 Respiratory Rate 16 Blood Pressure 135/83 Pulse Oximetry 99 Intake & Output 05/19/18 05/20/18 05/20/18 18:59 06:59 18:59 Intake Total 1440 / 1440 960 / 960 1000 / 1000 Output Total 550 / 550 Balance 1440 / 1440 410 / 410 1000 / 1000 Intake: IV 1000 / 1000 1000 / 1000 NS Inj 1,000 ML @ 100 mls/hr IV 1000 / 1000 1000 / 1000 .CONT .Q10H ARUN Rx#:[id number] Oral 240 / 240 960 / 960 Anesthesia Amount 200 / 200 Output: Urine 550 / 550 Other: # Voids 3 Date of Last Bowel Movement 05/18/18 05/18/18 # Bowel Movements 1 Result Diagrams: 05/19/18 06:20 05/19/18 06:20 Medications: Active Medications Generic Name Dose Route Start Last Admin Trade Name Freq PRN Reason Stop Dose Admin Enoxaparin Sodium 40 mg 05/17/18 20:00 05/19/18 20:33 Lovenox Inj SQ 40 mg Q24H ARUN Administration Sodium Chloride 1,000 mls @ 100 mls/hr 05/17/18 20:00 05/20/18 08:59 Ns Inj IV.CONT 100 mls/hr .Q10H ARUN Administration Sodium Chloride 500 mls @ 30 mls/hr 05/19/18 04:00 05/19/18 04:28 Ns Inj IV.SIG Not Given .Q10H ARUN Methylprednisolone Sodium Succinate 40 mg 05/17/18 22:00 05/20/18 05:32 Solumedrol Inj IV.PUSH 40 mg Q8HR ARUN Administration Ondansetron HCl 4 mg 05/17/18 18:23 05/20/18 00:58 Zofran Inj IV.PUSH 4 mg Q6H PRN Administration NAUSEA OR VOMITING Objective Remarks: GENERAL: Middle-age male resting in bed with eyes closed. He wakens easily to verbal stimuli. SKIN: Warm and dry. HEAD: Normocephalic. EYES: No scleral icterus. No injection or drainage. NECK: Supple, trachea midline. No JVD or lymphadenopathy. CARDIOVASCULAR: Regular rate and rhythm without murmurs. RESPIRATORY: Clear anteriorly. Breathing unlabored at rest. GASTROINTESTINAL: Abdomen soft. Tender with palpation to left quadrants EXTREMITIES: No cyanosis, or edema. MUSCULOSKELETAL: Generalized weakness NEUROLOGICAL: No obvious focal deficit. Awake, alert, and oriented x3. Assessment/Plan - Plan 52-year-old male with history of metastatic colon cancer that was diagnosed in 2013. Patient has been on multiple lines of treatment since that time. He is currently on Avastin with modified FOLFIRI chemotherapy since October 2017. Restaging scans have showed decrease in size of liver masses as well as decreasing size of lymphadenopathy. The patient began having left-sided abdominal pain associated with nausea and vomiting and has had several CT scans of the abdomen and pelvis that did not show any acute findings. He was seen outpatient last week with again complaints of increased left-sided abdominal pain and was instructed to come to the emergency room. MRI was ordered to evaluate for pain and GI was consulted. 1. Noted EGD results of esophagitis, and small nonbleeding ulcer in the duodenum. I have placed the patient on Protonix. 2. Okay for patient to take a shower today 3. Give 1 mg IV Dilaudid 1 dose for worsening abdominal pain. 4. Continue supportive care.
--- NOTE | 2018-05-20 11:29 | P.PNGI ---
Subjective Interval history: Tolerating diet well, findings of the endoscopy discussed with the patient. Physical Exam Vital signs: Vital Signs 05/19/18 12:00 05/19/18 16:00 05/19/18 19:59 Temperature 98.1 F 98.1 F Pulse Rate 62 76 71 Respiratory Rate 14 16 Blood Pressure 137/82 140/88 Pulse Oximetry 98 96 05/19/18 20:00 05/20/18 00:00 05/20/18 00:05 Temperature 97.9 F 99.4 F Pulse Rate 87 73 66 Respiratory Rate 16 18 Blood Pressure 142/85 H 138/88 Pulse Oximetry 99 99 05/20/18 00:30 05/20/18 04:00 05/20/18 06:12 Temperature 97.5 F L Pulse Rate 79 Respiratory Rate 17 20 16 Blood Pressure 145/78 H Pulse Oximetry 100 05/20/18 08:00 Temperature 98.0 F Pulse Rate 79 Respiratory Rate 16 Blood Pressure 135/83 Pulse Oximetry 99 Intake & Output 05/19/18 05/20/18 05/20/18 18:59 06:59 18:59 Intake Total 1440 / 1440 960 / 960 1000 / 1000 Output Total 550 / 550 Balance 1440 / 1440 410 / 410 1000 / 1000 Intake: IV 1000 / 1000 1000 / 1000 NS Inj 1,000 ML @ 100 mls/hr IV 1000 / 1000 1000 / 1000 .CONT .Q10H [facility] Rx#:[id number] Oral 240 / 240 960 / 960 Anesthesia Amount 200 / 200 Output: Urine 550 / 550 Other: # Voids 3 Date of Last Bowel Movement 05/18/18 05/18/18 # Bowel Movements 1 Narrative: GENERAL: NAD, A&Ox3, patient appears uncomfortable due to nausea HEAD: Normocephalic. NECK: Supple, trachea midline. No lymphadenopathy. EYES: No scleral icterus. No injection or drainage. CARDIOVASCULAR: Regular rate and rhythm without murmurs, gallops, or rubs. RESPIRATORY: Breath sounds equal bilaterally. No accessory muscle use. GASTROINTESTINAL: Abdomen soft, non-tender, nondistended. MUSCULOSKELETAL: No cyanosis, or edema. SKIN: Warm and dry. NEURO: No focal neurological deficits. Results - Labs CBC & Chem 7: 05/19/18 06:20 05/19/18 06:20 Assessment and Plan - Plan Assessment: - Nausea/vomiting/left sided abdominal pain Pt is very lethargic, therefore most history has been obtained through sitting at bedside. States pt has been having left sided abdominal pain for a long time, unable to say how long, pain is intermittent, not improved with home prescription for Hydrocodone. Reports nausea and vomiting has been chronic since being on IV chemo but states that the frequency of the vomiting has increased and is now more often than chemo treatments every other week. Last tx was the day before arrival to hospital. Pt also reports a lot of burping and heartburn lately, has taken Zantac and his 's prescription for PPI with minimal relief. Last EGD was a long time ago, unsure of abnormal findings Multiple CT abdomen/pelvis done with no acute findings for left sided pain - Colon cancer with metastasis to liver S/P sigmoid colectomy- on IV chemo every other week- oncologist is Dr. Baumann - Elevated LFTs secondary to metastasis Plan: Continue PPI Await biopsy results Diet as tolerated Antiemetics PRN Supportive care Will sign of for now, please notify us if needed again
[2018-05-20] MEDS: Pantoprazole Inj 40 MG Vial IV.PUSH SCH (12:02)
[2018-05-20] MEDS: Enoxaparin Inj 40 MG/0.4 ML Syringe SQ SCH (20:50)
[2018-05-21 05:19] LABS: Hematocrit 37.9 % (39.0-51.0); Hemoglobin 13.3 gm/dL (13.0-17.0); Lymph # (Auto) 1.4 th/mm3 (1.0-4.8); Lymph % (Auto) 20.3 % (9.0-44.0); Mean Corpuscular Hemoglobin 33.9 pg (27.0-34.0); Mean Corpuscular Volume 96.9 fL (80.0-100.0); Mean Platelet Volume 10.2 fL (7.0-11.0); Mono # (Auto) 0.3 th/mm3 (0.0-0.9); Mono % (Auto) 4.1 % (0.0-8.0); Neut # (Auto) 5.1 th/mm3 (1.8-7.7); Neut % (Auto) 75.6 % (16.0-70.0); Platelet Count 147 th/mm3 (150-450); Red Blood Count 3.91 mil/mm3 (4.50-5.90); Red Cell Distribution Width 14.8 % (11.6-17.2); White Blood Count 6.8 th/mm3 (4.0-11.0)
[2018-05-21 05:25] LABS: Alanine Aminotransferase 60 U/L (12-78); Albumin 3.5 g/dL (3.4-5.0); Anion Gap 8 meq/L (5-15); Aspartate Aminotransferase 11 U/L (15-37); Blood Urea Nitrogen 8 mg/dL (7-18); Calcium 8.5 mg/dL (8.5-10.1); Chloride 101 meq/L (98-107); Glomerular Filtration Rate Greater Than 89 mL/min (>89); Glucose,Random 117 mg/dL (74-106); Potassium 3.6 meq/L (3.5-5.1); Sodium 138 meq/L (136-145)
[2018-05-21 05:28] LABS: Alkaline Phosphatase 172 U/L (45-117); Total Protein 6.4 g/dL (6.4-8.2)
[2018-05-21] MEDS: MethylPREDNISolone Sod Succinate Inj 40 MG/ML Vial IV.PUSH SCH ×4 (05:50→23:35)
[2018-05-21] MEDS: Sod Chloride 0.9% Inj 1,000 ML IV.CONT SCH ×3 (05:51→20:44)
[2018-05-21] MEDS: oxyCODONE/Acetaminophen 10/325 Tablet PO PRN ×3 (08:08→23:36)
--- NOTE | 2018-05-21 10:00 | P.PNIM ---
Subjective Interval history: Nausea is starting to improve. No vomiting overnight. Pain is improving also. Physical Exam Vital signs: Vital Signs 05/20/18 12:00 05/20/18 16:00 05/20/18 19:58 Temperature 97.9 F 98.0 F Pulse Rate 76 71 67 Respiratory Rate 12 16 Blood Pressure 125/81 155/85 H Pulse Oximetry 100 94 L 05/20/18 20:00 05/20/18 23:47 05/21/18 00:00 Temperature 98.2 F 98.3 F Pulse Rate 63 66 Respiratory Rate 18 18 14 Blood Pressure 124/76 142/69 H Pulse Oximetry 99 96 05/21/18 00:15 05/21/18 03:59 05/21/18 04:00 Temperature 98.3 F Pulse Rate 60 61 57 L Respiratory Rate 16 Blood Pressure 150/86 H Pulse Oximetry 97 05/21/18 05:16 05/21/18 08:00 Temperature 98.2 F Pulse Rate 57 L Respiratory Rate 17 18 Blood Pressure 142/80 H Pulse Oximetry 99 Intake & Output 05/20/18 05/21/18 05/21/18 18:59 06:59 18:59 Intake Total 1000 / 1000 2320 / 2320 Output Total 650 / 650 Balance 1000 / 1000 1670 / 1670 Intake: IV 1000 / 1000 1600 / 1600 NS Inj 1,000 ML @ 100 mls/hr IV 1000 / 1000 1000 / 1000 .CONT .Q10H AR[facility] Rx#:[id number] Oral 720 / 720 Output: Urine 650 / 650 Other: # Voids 4 2 Date of Last Bowel Movement 05/17/18 05/17/18 05/18/18 Narrative: GENERAL: NAD, A&Ox3 HEAD: Normocephalic. NECK: Supple, trachea midline. No lymphadenopathy. EYES: No scleral icterus. No injection or drainage. CARDIOVASCULAR: Regular rate and rhythm without murmurs, gallops, or rubs. RESPIRATORY: Breath sounds equal bilaterally. No accessory muscle use. GASTROINTESTINAL: Abdomen soft, non-tender, nondistended. MUSCULOSKELETAL: No cyanosis, or edema. SKIN: Warm and dry. NEURO: No focal neurological deficits. Results - Labs CBC & Chem 7: 05/21/18 03:54 05/21/18 03:54 Laboratory Results - last 24 hr 09/03/18 09/03/18 03:54 03:54 WBC 6.8 RBC 3.91 L Hgb 13.3 Hct 37.9 L MCV 96.9 MCH 33.9 MCHC 35.0 RDW 14.8 Plt Count 147 L MPV 10.2 Neut % (Auto) 75.6 H Lymph % (Auto) 20.3 [place] % (Auto) 4.1 Eos % (Auto) 0.0 Baso % (Auto) 0.0 Neut # (Auto) 5.1 Lymph # (Auto) 1.4 [place] # (Auto) 0.3 Eos # (Auto) 0.0 Baso # (Auto) 0.0 WBC Differential . Differential Comment Auto diff final Sodium 138 Potassium 3.6 Chloride 101 Carbon Dioxide 29.0 Anion Gap 8 BUN 8 Creatinine 0.70 Estimated GFR Greater than 89 Random Glucose 117 H Calcium 8.5 Total Bilirubin 0.6 AST 11 L ALT 60 Alkaline Phosphatase 172 H Total Protein 6.4 Albumin 3.5 Assessment and Plan - Assessment (1) Intractable nausea and vomiting Code(s): R11.2 - Nausea with vomiting, unspecified Status: Acute (2) Dehydration Code(s): E86.0 - Dehydration Status: Acute (3) Hypokalemia Code(s): E87.6 - Hypokalemia Status: Acute - Plan 52-year-old male with metastatic colon cancer including liver metastasis, admitted secondary to hyperemesis which appears related to chemotherapy Improved pain and nausea control. Continue Zofran p.o. continue Phenergan p.o. continue Ativan as needed for nausea or anxiety. Continue IV Zofran as a backup. p.o. Percocet is primary pain treatment and backup IV Dilaudid as a secondary option. Continue monitoring for any recurrence of hyper emesis episodes. If nausea remains controlled over next 24 hours we will start considering discharge. Colon cancer Stomach ulcer Esophagitis Liver metastasis Left flank pain Transaminitis Immunocompromise Active chemotherapy No acute concerns on imaging continue baseline management Oncology following GI following Continue PPI Hyperemesis Related to cancer and chemotherapy Continue IV hydration Advance diet as tolerated Continue antiemetics We will transition eventually to oral antiemetics and determined that this will help patient's nausea prior to discharge DVT prophylaxis SCDs
--- NOTE | 2018-05-21 11:11 | P.PNONC ---
Subjective Interval history: Afebrile Patient reports he feels like he is slowly getting better Hoping to receive 1 more day of support with IV fluids Was able to take shower yesterday Objective Vital Signs/Intake & Output: Vital Signs 05/20/18 12:00 05/20/18 16:00 05/20/18 19:58 Temperature 97.9 F 98.0 F Pulse Rate 76 71 67 Respiratory Rate 12 16 Blood Pressure 125/81 155/85 H Pulse Oximetry 100 94 L 05/20/18 20:00 05/20/18 23:47 05/21/18 00:00 Temperature 98.2 F 98.3 F Pulse Rate 63 66 Respiratory Rate 18 18 14 Blood Pressure 124/76 142/69 H Pulse Oximetry 99 96 05/21/18 00:15 05/21/18 03:59 05/21/18 04:00 Temperature 98.3 F Pulse Rate 60 61 57 L Respiratory Rate 16 Blood Pressure 150/86 H Pulse Oximetry 97 05/21/18 05:16 05/21/18 08:00 Temperature 98.2 F Pulse Rate 57 L Respiratory Rate 17 18 Blood Pressure 142/80 H Pulse Oximetry 99 Intake & Output 05/20/18 05/21/18 05/21/18 18:59 06:59 18:59 Intake Total 1000 / 1000 2320 / 2320 Output Total 650 / 650 Balance 1000 / 1000 1670 / 1670 Intake: IV 1000 / 1000 1600 / 1600 NS Inj 1,000 ML @ 100 mls/hr IV 1000 / 1000 1000 / 1000 .CONT .Q10H [facility] Rx#:[id number] Oral 720 / 720 Output: Urine 650 / 650 Other: # Voids 4 2 Date of Last Bowel Movement 05/17/18 05/17/18 05/18/18 Result Diagrams: 05/21/18 03:54 05/21/18 03:54 Laboratory Results: Laboratory Results - last 24 hr 05/21/18 05/21/18 03:54 03:54 WBC 6.8 RBC 3.91 L Hgb 13.3 Hct 37.9 L MCV 96.9 MCH 33.9 MCHC 35.0 RDW 14.8 Plt Count 147 L MPV 10.2 Neut % (Auto) 75.6 H Lymph % (Auto) 20.3 [place] % (Auto) 4.1 Eos % (Auto) 0.0 Baso % (Auto) 0.0 Neut # (Auto) 5.1 Lymph # (Auto) 1.4 [place] # (Auto) 0.3 Eos # (Auto) 0.0 Baso # (Auto) 0.0 WBC Differential . Differential Comment Auto diff final Sodium 138 Potassium 3.6 Chloride 101 Carbon Dioxide 29.0 Anion Gap 8 BUN 8 Creatinine 0.70 Estimated GFR Greater than 89 Random Glucose 117 H Calcium 8.5 Total Bilirubin 0.6 AST 11 L ALT 60 Alkaline Phosphatase 172 H Total Protein 6.4 Albumin 3.5 Medications: Active Medications Generic Name Dose Route Start Last Admin Trade Name Freq PRN Reason Stop Dose Admin Enoxaparin Sodium 40 mg 05/17/18 20:00 05/20/18 20:50 Lovenox Inj SQ 40 mg Q24H ARUN Administration Sodium Chloride 1,000 mls @ 100 mls/hr 05/17/18 20:00 05/21/18 05:51 Ns Inj IV.CONT Not Given .Q10H ARUN Sodium Chloride 500 mls @ 30 mls/hr 05/19/18 04:00 05/19/18 04:28 Ns Inj IV.SIG Not Given .Q10H ARUN Lorazepam 1 mg 05/20/18 09:23 05/21/18 03:31 Ativan PO 1 mg Q6H PRN Administration Nausea (alternative to zofran) Methylprednisolone Sodium Succinate 40 mg 05/17/18 22:00 05/21/18 05:50 Solumedrol Inj IV.PUSH 40 mg Q8HR ARUN Administration Ondansetron HCl 4 mg 05/17/18 18:23 05/20/18 12:03 Zofran Inj IV.PUSH 4 mg Q6H PRN Administration NAUSEA OR VOMITING Oxycodone/Acetaminophen 1 tab 05/20/18 09:25 05/21/18 08:08 Percocet 10/325 Mg PO 1 tab Q4H PRN Administration Pain 7 to 10 Pantoprazole Sodium 40 mg 05/20/18 12:00 05/20/18 12:02 Protonix Inj IV.PUSH 40 mg Q24H ARUN Administration Promethazine HCl 12.5 mg 05/20/18 15:00 05/21/18 08:08 Phenergan PO 12.5 mg Q6H ARUN Administration Objective Remarks: GENERAL: Middle-age male resting in bed watching TV in no obvious distress SKIN: Warm and dry. HEAD: Normocephalic. EYES: No injection or drainage. NECK: Supple, trachea midline. CARDIOVASCULAR: Regular rate and rhythm without murmurs. RESPIRATORY: Clear anteriorly. Breathing unlabored at rest. GASTROINTESTINAL: Abdomen soft. Tender with palpation to left quadrants EXTREMITIES: No cyanosis, or edema. MUSCULOSKELETAL: Generalized weakness NEUROLOGICAL: No obvious focal deficit. Awake, alert, and oriented x3. Assessment/Plan - Plan 52-year-old male with history of metastatic colon cancer that was diagnosed in 2013. Patient has been on multiple lines of treatment since that time. He is currently on Avastin with modified FOLFIRI chemotherapy since October 2017. Restaging scans have showed decrease in size of liver masses as well as decreasing size of lymphadenopathy. The patient began having left-sided abdominal pain associated with nausea and vomiting and has had several CT scans of the abdomen and pelvis that did not show any acute findings. He was seen outpatient last week with again complaints of increased left-sided abdominal pain and was instructed to come to the emergency room. MRI was ordered to evaluate for pain and GI was consulted. 1. Continue supportive care for 1 more day with IV fluids, as needed IV Dilaudid. If patient continues to improve he can likely be discharged tomorrow from oncology standpoint.
[2018-05-21] MEDS: Pantoprazole Inj 40 MG Vial IV.PUSH SCH (14:21)
[2018-05-21] MEDS: Enoxaparin Inj 40 MG/0.4 ML Syringe SQ SCH (20:43)
[2018-05-22] MEDS: Sod Chloride 0.9% Inj 1,000 ML IV.CONT SCH ×4 (01:06→21:02)
[2018-05-22] MEDS: oxyCODONE/Acetaminophen 10/325 Tablet PO PRN (04:23)
[2018-05-22] MEDS: MethylPREDNISolone Sod Succinate Inj 40 MG/ML Vial IV.PUSH SCH ×4 (05:16→21:07)
--- NOTE | 2018-05-22 09:52 | P.PNIM ---
Subjective Interval history: Patient has complaint of pain today. Nausea continues to be well controlled. Consideration for treatment of enlarging lymph node has been discussed with the patient's oncologist and decision on this matter is pending. Physical Exam Vital signs: Vital Signs 05/21/18 12:00 05/21/18 16:00 05/21/18 20:00 Temperature 98.0 F 98.4 F 98 F Pulse Rate 70 73 73 Respiratory Rate 18 18 16 Blood Pressure 129/78 139/90 148/88 H Pulse Oximetry 97 97 98 05/21/18 20:17 05/22/18 00:00 05/22/18 00:06 Temperature 98.3 F Pulse Rate 70 71 Respiratory Rate 20 18 Blood Pressure 125/71 Pulse Oximetry 100 05/22/18 00:14 05/22/18 04:00 05/22/18 04:11 Temperature 98.1 F Pulse Rate 62 71 64 Respiratory Rate 20 Blood Pressure 137/88 Pulse Oximetry 99 05/22/18 04:59 05/22/18 05:57 Temperature Pulse Rate Respiratory Rate 18 17 Blood Pressure Pulse Oximetry Intake & Output 05/21/18 05/22/18 05/22/18 18:59 06:59 18:59 Intake Total 1600 / 1600 2000 / 2000 1000 / 1000 Output Total 1300 / 1300 Balance 1600 / 1600 700 / 700 1000 / 1000 Intake: IV 1000 / 1000 1000 / 1000 1000 / 1000 NS Inj 1,000 ML @ 100 mls/hr IV 1000 / 1000 1000 / 1000 1000 / 1000 .CONT .Q10H [facility] Rx#:[id number] Oral 600 / 600 1000 / 1000 Output: Urine 1300 / 1300 Other: # Voids 2 Date of Last Bowel Movement 05/18/18 05/18/18 Narrative: GENERAL: NAD, A&Ox3 HEAD: Normocephalic. NECK: Supple, trachea midline. No lymphadenopathy. EYES: No scleral icterus. No injection or drainage. CARDIOVASCULAR: Regular rate and rhythm without murmurs, gallops, or rubs. RESPIRATORY: Breath sounds equal bilaterally. No accessory muscle use. GASTROINTESTINAL: Abdomen soft, non-tender, nondistended. MUSCULOSKELETAL: No cyanosis, or edema. SKIN: Warm and dry. NEURO: No focal neurological deficits. Results - Labs CBC & Chem 7: 05/21/18 03:54 05/21/18 03:54 Assessment and Plan - Assessment (1) Intractable nausea and vomiting Code(s): R11.2 - Nausea with vomiting, unspecified Status: Acute (2) Dehydration Code(s): E86.0 - Dehydration Status: Acute (3) Hypokalemia Code(s): E87.6 - Hypokalemia Status: Acute - Plan 52-year-old male with metastatic colon cancer including liver metastasis, admitted secondary to hyperemesis which appears related to chemotherapy Increased pain treatment. Awaiting decision in regards to radiation therapy. Colon cancer Stomach ulcer Esophagitis Liver metastasis Left flank pain Transaminitis Immunocompromise Active chemotherapy No acute concerns on imaging continue baseline management Oncology following GI following Continue PPI Hyperemesis Related to cancer and chemotherapy Continue IV hydration Advance diet as tolerated Continue antiemetics We will transition eventually to oral antiemetics and determined that this will help patient's nausea prior to discharge DVT prophylaxis SCDs
[2018-05-22] MEDS ORDERED: Morphine Sulfate 15 MG SR Tablet PO ONE (11:00)
--- NOTE | 2018-05-22 12:04 | P.PNONC ---
Subjective Interval history: Afebrile. Patient complains of continued left flank pain. He states pain is improved with IV pain medications. He also reports no bowel movement in days. He states he was given something for this yesterday, however it caused him to have abdominal cramping. Objective Vital Signs/Intake & Output: Vital Signs 05/21/18 12:00 05/21/18 16:00 05/21/18 20:00 Temperature 98.0 F 98.4 F 98 F Pulse Rate 70 73 73 Respiratory Rate 18 18 16 Blood Pressure 129/78 139/90 148/88 H Pulse Oximetry 97 97 98 05/21/18 20:17 05/22/18 00:00 05/22/18 00:06 Temperature 98.3 F Pulse Rate 70 71 Respiratory Rate 20 18 Blood Pressure 125/71 Pulse Oximetry 100 05/22/18 00:14 05/22/18 04:00 05/22/18 04:11 Temperature 98.1 F Pulse Rate 62 71 64 Respiratory Rate 20 Blood Pressure 137/88 Pulse Oximetry 99 05/22/18 04:59 05/22/18 05:57 05/22/18 08:00 Temperature 98.5 F Pulse Rate 69 Respiratory Rate 18 17 16 Blood Pressure 142/88 H Pulse Oximetry 100 Intake & Output 05/21/18 05/22/18 05/22/18 18:59 06:59 18:59 Intake Total 1600 / 1600 2000 / 2000 1000 / 1000 Output Total 1300 / 1300 Balance 1600 / 1600 700 / 700 1000 / 1000 Intake: IV 1000 / 1000 1000 / 1000 1000 / 1000 NS Inj 1,000 ML @ 100 mls/hr IV 1000 / 1000 1000 / 1000 1000 / 1000 .CONT .Q10H [facility] Rx#:[id number] Oral 600 / 600 1000 / 1000 Output: Urine 1300 / 1300 Other: # Voids 2 Date of Last Bowel Movement 05/18/18 05/18/18 Result Diagrams: 05/21/18 03:54 05/21/18 03:54 Medications: Active Medications Generic Name Dose Route Start Last Admin Trade Name Freq PRN Reason Stop Dose Admin Al Hydroxide/Mg Hydroxide 30 ml 05/17/18 18:23 05/21/18 20:43 Milk Of Magnesia Liq PO 30 ml Q12H PRN Administration Mild Constipation Enoxaparin Sodium 40 mg 05/17/18 20:00 05/21/18 20:43 Lovenox Inj SQ 40 mg Q24H ARUN Administration Sodium Chloride 1,000 mls @ 100 mls/hr 05/17/18 20:00 05/22/18 07:00 Ns Inj IV.CONT 100 mls/hr .Q10H ARUN Administration Sodium Chloride 500 mls @ 30 mls/hr 05/19/18 04:00 05/19/18 04:28 Ns Inj IV.SIG Not Given .Q10H ARUN Lorazepam 1 mg 05/20/18 09:23 05/21/18 03:31 Ativan PO 1 mg Q6H PRN Administration Nausea (alternative to zofran) Methylprednisolone Sodium Succinate 40 mg 05/17/18 22:00 05/22/18 05:16 Solumedrol Inj IV.PUSH 40 mg Q8HR ARUN Administration Ondansetron HCl 4 mg 05/17/18 18:23 05/20/18 12:03 Zofran Inj IV.PUSH 4 mg Q6H PRN Administration NAUSEA OR VOMITING Oxycodone/Acetaminophen 1 tab 05/20/18 09:25 05/22/18 04:23 Percocet 10/325 Mg PO 1 tab Q4H PRN Administration Pain 7 to 10 Pantoprazole Sodium 40 mg 05/20/18 12:00 05/21/18 14:21 Protonix Inj IV.PUSH 40 mg Q24H ARUN Administration Promethazine HCl 12.5 mg 05/20/18 15:00 05/22/18 09:38 Phenergan PO 12.5 mg Q6H ARUN Administration Objective Remarks: GENERAL: Middle-age male patient, lying in bed, no acute distress noted. SKIN: Warm and dry. HEAD: Normocephalic. EYES: No injection or drainage. NECK: Supple, trachea midline. CARDIOVASCULAR: +S1/S2 without murmurs. RESPIRATORY: Anterior breath sounds clear, equal bilaterally. Non-labored. GASTROINTESTINAL: Abdomen soft, non-tender. +BS. EXTREMITIES: No cyanosis, or edema. MUSCULOSKELETAL: Moving all extremities. NEUROLOGICAL: No obvious focal deficit. Awake, alert, and oriented x3. Assessment/Plan - Plan 52-year-old male with history of metastatic colon cancer that was diagnosed in 2013. Patient has been on multiple lines of treatment since that time. He is currently on Avastin with modified FOLFIRI chemotherapy since October 2017. Restaging scans have showed decrease in size of liver masses as well as decreasing size of lymphadenopathy. The patient began having left-sided abdominal pain associated with nausea and vomiting and has had several CT scans of the abdomen and pelvis that did not show any acute findings. He was seen outpatient last week with again complaints of increased left-sided abdominal pain and was instructed to come to the emergency room. MRI was ordered to evaluate for pain and GI was consulted. 1. Left flank pain continues, currently on Oramorph 15 mg p.o. BID, percocet and dilaudid IV prn. 2. Constipation, will add Roberta-Colace twice a day until bowel movement achieved. 3. Continue supportive care. - Attending Statement The exam, history, and the medical decision-making described in the above note were completed with the assistance of the mid-level provider. I reviewed and agree with the findings presented. I attest that I had a [id number] encounter with the patient on the same day, and personally performed and documented my assessment and findings in the medical record. C/O left flank pain. No more vomiting Nausea has improved. C/O constipation due to narcotics, Laxative. Continue present narcotics, Consult XRT for palliative radiation to left Paraaortic LAD.
[2018-05-22] MEDS: Pantoprazole Inj 40 MG Vial IV.PUSH SCH (14:54)
[2018-05-22] MEDS: Senna/Docusate Sodium 8.6/50 MG Tablet PO SCH ×2 (17:18→21:02)
[2018-05-22] MEDS: Morphine Sulfate 15 MG SR Tablet PO SCH (21:01)
[2018-05-22] MEDS: Enoxaparin Inj 40 MG/0.4 ML Syringe SQ SCH (21:01)
[2018-05-23] MEDS: MethylPREDNISolone Sod Succinate Inj 40 MG/ML Vial IV.PUSH SCH ×3 (06:25→22:50)
[2018-05-23] MEDS: Sod Chloride 0.9% Inj 1,000 ML IV.CONT SCH ×2 (07:11→17:14)
[2018-05-23] MEDS: Morphine Sulfate 15 MG SR Tablet PO SCH ×2 (08:08→22:48)
[2018-05-23] MEDS: Senna/Docusate Sodium 8.6/50 MG Tablet PO SCH ×2 (08:09→22:49)
--- NOTE | 2018-05-23 10:11 | P.PNIM ---
Subjective Interval history: Pain and nausea are now under control. Patient will discharge on current p.o. treatments for both of these conditions. Evaluation by radiation oncologist pending. Physical Exam Vital signs: Vital Signs 05/22/18 12:00 05/22/18 16:00 05/22/18 20:00 Temperature 98 F 98 F 97.9 F Pulse Rate 66 60 68 Respiratory Rate 18 16 17 Blood Pressure 146/91 H 125/79 135/78 Pulse Oximetry 98 100 97 05/22/18 20:07 05/22/18 21:31 05/23/18 00:00 Temperature 98.2 F Pulse Rate 64 64 Respiratory Rate 18 17 Blood Pressure 121/67 Pulse Oximetry 96 05/23/18 01:25 05/23/18 04:00 05/23/18 05:51 Temperature 97.5 F L Pulse Rate 57 L Respiratory Rate 17 17 16 Blood Pressure 131/85 Pulse Oximetry 98 05/23/18 08:00 Temperature 97.2 F L Pulse Rate 59 L Respiratory Rate Blood Pressure 159/93 H Pulse Oximetry 100 Intake & Output 05/22/18 05/23/18 05/23/18 18:59 06:59 18:59 Intake Total 2000 / 1999 1000 / 1000 Output Total 1200 / 1200 Balance 800 / 800 1000 / 1000 Intake: IV 1999 / 1999 1000 / 1000 NS Inj 1,000 ML @ 100 mls/hr IV 2000 / 1999 1000 / 1000 .CONT .Q10H [facility] Rx#:[id number] Output: Urine 1200 / 1200 Other: Date of Last Bowel Movement 05/18/18 05/18/18 Narrative: GENERAL: NAD, A&Ox3 HEAD: Normocephalic. NECK: Supple, trachea midline. No lymphadenopathy. EYES: No scleral icterus. No injection or drainage. CARDIOVASCULAR: Regular rate and rhythm without murmurs, gallops, or rubs. RESPIRATORY: Breath sounds equal bilaterally. No accessory muscle use. GASTROINTESTINAL: Abdomen soft, non-tender, nondistended. MUSCULOSKELETAL: No cyanosis, or edema. SKIN: Warm and dry. NEURO: No focal neurological deficits. Results - Labs CBC & Chem 7: 05/21/18 03:54 05/21/18 03:54 Assessment and Plan - Assessment (1) Intractable nausea and vomiting Code(s): R11.2 - Nausea with vomiting, unspecified Status: Acute (2) Dehydration Code(s): E86.0 - Dehydration Status: Acute (3) Hypokalemia Code(s): E87.6 - Hypokalemia Status: Acute - Plan 52-year-old male with metastatic colon cancer including liver metastasis, admitted secondary to hyperemesis which appears related to chemotherapy Pain under control. Evaluation by radiation oncologist pending. Discharge pending clearance by oncology and radiation oncology. Colon cancer Stomach ulcer Esophagitis Liver metastasis Left flank pain Transaminitis Immunocompromise Active chemotherapy No acute concerns on imaging continue baseline management Oncology following GI following Continue PPI Hyperemesis Related to cancer and chemotherapy Continue IV hydration Advance diet as tolerated Continue antiemetics We will transition eventually to oral antiemetics and determined that this will help patient's nausea prior to discharge DVT prophylaxis SCDs
--- NOTE | 2018-05-23 14:25 | P.PNONC ---
Subjective Interval history: Afebrile, patient states he has not had pain since last night. He still has not had a bowel movement. He denies any nausea or vomiting. Objective Vital Signs/Intake & Output: Vital Signs 05/22/18 16:00 05/22/18 20:00 05/22/18 20:07 Temperature 98 F 97.9 F Pulse Rate 60 68 64 Respiratory Rate 16 17 Blood Pressure 125/79 135/78 Pulse Oximetry 100 97 05/22/18 21:31 05/23/18 00:00 05/23/18 01:25 Temperature 98.2 F Pulse Rate 64 Respiratory Rate 18 17 17 Blood Pressure 121/67 Pulse Oximetry 96 05/23/18 04:00 05/23/18 05:51 05/23/18 08:00 Temperature 97.5 F L 97.2 F L Pulse Rate 57 L 59 L Respiratory Rate 17 16 Blood Pressure 131/85 159/93 H Pulse Oximetry 98 100 05/23/18 12:00 Temperature 97.9 F Pulse Rate 69 Respiratory Rate 18 Blood Pressure 127/82 Pulse Oximetry 98 Intake & Output 05/22/18 05/23/18 05/23/18 18:59 06:59 18:59 Intake Total 2000 / 1999 1000 / 1000 Output Total 1200 / 1200 Balance 800 / 800 1000 / 1000 Intake: IV 1999 / 1999 1000 / 1000 NS Inj 1,000 ML @ 100 mls/hr IV 1999 / 1999 1000 / 1000 .CONT .Q10H [facility] Rx#:[id number] Output: Urine 1200 / 1200 Other: Date of Last Bowel Movement 05/18/18 05/18/18 Result Diagrams: 05/21/18 03:54 05/21/18 03:54 Medications: Active Medications Generic Name Dose Route Start Last Admin Trade Name Freq PRN Reason Stop Dose Admin Al Hydroxide/Mg Hydroxide 30 ml 05/17/18 18:23 05/21/18 20:43 Milk Of Magnesia Liq PO 30 ml Q12H PRN Administration Mild Constipation Enoxaparin Sodium 40 mg 05/17/18 20:00 05/22/18 21:01 Lovenox Inj SQ 40 mg Q24H [facility] Administration Sodium Chloride 1,000 mls @ 100 mls/hr 05/17/18 20:00 05/23/18 08:14 Ns Inj IV.CONT 0 mls/hr .Q10H [facility] Infusion Sodium Chloride 500 mls @ 30 mls/hr 05/19/18 04:00 05/19/18 04:28 Ns Inj IV.SIG Not Given .Q10H [facility] Lorazepam 1 mg 05/20/18 09:23 05/21/18 03:31 Ativan PO 1 mg Q6H PRN Administration Nausea (alternative to zofran) Methylprednisolone Sodium Succinate 40 mg 05/17/18 22:00 05/23/18 06:25 Solumedrol Inj IV.PUSH 40 mg Q8HR [facility] Administration Morphine Sulfate 15 mg 05/22/18 21:00 05/23/18 08:08 Oramorph Sr PO 15 mg Q12HR [facility] Administration Ondansetron HCl 4 mg 05/17/18 18:23 05/20/18 12:03 Zofran Inj IV.PUSH 4 mg Q6H PRN Administration NAUSEA OR VOMITING Oxycodone/Acetaminophen 1 tab 05/20/18 09:25 05/22/18 04:23 Percocet 10/325 Mg PO 1 tab Q4H PRN Administration Pain 7 to 10 Oxycodone/Acetaminophen 1 tab 05/20/18 09:25 05/22/18 15:09 Percocet 5/325 Mg PO 1 tab Q4H PRN Administration Pain 3 to 6 Pantoprazole Sodium 40 mg 05/20/18 12:00 05/22/18 14:54 Protonix Inj IV.PUSH 40 mg Q24H [facility] Administration Promethazine HCl 12.5 mg 05/20/18 15:00 05/23/18 08:09 Phenergan PO 12.5 mg Q6H [facility] Administration Senna/Docusate Sodium 1 tab 05/22/18 13:45 05/23/18 08:09 Roberta-Colace PO 1 tab BID [facility] Administration Objective Remarks: GENERAL: Middle-age male patient, resting comfortably in bed. SKIN: Warm and dry. HEAD: Normocephalic. EYES: No injection or drainage. NECK: Supple, trachea midline. CARDIOVASCULAR: +S1/S2 without murmurs. RESPIRATORY: Anterior breath sounds clear, equal bilaterally. Non-labored. GASTROINTESTINAL: Abdomen soft, non-tender. +BS. EXTREMITIES: No cyanosis, or edema. MUSCULOSKELETAL: Moving all extremities. NEUROLOGICAL: No obvious focal deficit. Awake, alert, and oriented x3. Assessment/Plan - Plan 52-year-old male with history of metastatic colon cancer that was diagnosed in 2013. Patient has been on multiple lines of treatment since that time. He is currently on Avastin with modified FOLFIRI chemotherapy since October 2017. Restaging scans have showed decrease in size of liver masses as well as decreasing size of lymphadenopathy. The patient began having left-sided abdominal pain associated with nausea and vomiting and has had several CT scans of the abdomen and pelvis that did not show any acute findings. He was seen outpatient last week with again complaints of increased left-sided abdominal pain and was instructed to come to the emergency room. MRI was ordered to evaluate for pain and GI was consulted. 1. Pain currently controlled. 2. Constipation, continue Roberta-Colace twice a day until bowel movement achieved. Patient may benefit from milk of magnesium, orders on the chart. 3. Radiation oncology consult, pending. 4. Esophageal biopsy, pending. - Attending Statement The exam, history, and the medical decision-making described in the above note were completed with the assistance of the mid-level provider. I reviewed and agree with the findings presented. I attest that I had a [id number] encounter with the patient on the same day, and personally performed and documented my assessment and findings in the medical record. Patient states that nausea and vomiting has now resolved He is eating better and able to keep it down He still has some left flank pain but it is improving I have discussed the case with the radiation oncologist Dr. Yara osuna will see him later today and decide whether he would be a candidate for palliative radiation therapy as outpatient Patient can be discharged from oncology standpoint
[2018-05-23] MEDS: Pantoprazole Inj 40 MG Vial IV.PUSH SCH (15:23)
--- NOTE | 2018-05-23 16:50 | P.CON ---
History of Present Illness Service: radiation oncology Primary Care Provider: Dashawn Baumann MD Chief Complaint: left back/ abdominal pain History of Present Illness: [place], abdominal pain, history metastatic rectal cancer. Recent CT scans and MRI. [facility]LY [facility] - History History Provided By: Patient - Medical History Medical History: Medical History (Last Reviewed 05/17/18 @ 13:34 by Ange Fox DO) Colon cancer Liver metastases Port-A-Cath in place Prostate CA - Surgical History Surgical History: Surgical History (Last Reviewed 05/17/18 @ 13:34 by Ange Fox DO) History of colon resection - Family History Family History: Family History (Last Updated 05/17/18 @ 21:14 by Panda Woods MD) Father Healthy adult Mother Healthy adult - Tobacco History Second Hand Smoke Exposure: No Smoking Status: Former smoker Tobacco Type: Cigarettes - Alcohol History How Often Do You Have a Drink Containing Alcohol: Never - Substance Use History Substance History: No History of Abuse - Travel History Recent Travel in the [place] Within the Last 8 Weeks: No Recent Travel Out of the Country Within the Last 8 Weeks: No - Immunization History Tetanus Immunization: Unsure Hx Influenza Vaccine This Season: No Medications and Allergies Active Medications: Active Medications Acetaminophen (Tylenol) 650 mg PO Q4H PRN PRN Reason: Temp > 100.4 Last Admin: 05/23/18 15:04 Dose: 650 mg Al Hydroxide/Mg Hydroxide (Milk Of Magnkristen Liq) 30 ml PO Q12H PRN PRN Reason: Mild Constipation Last Admin: 05/21/18 20:43 Dose: 30 ml Enoxaparin Sodium (Lovenox Inj) 40 mg SQ Q24H [facility] Last Admin: 05/22/18 21:01 Dose: 40 mg Hydromorphone HCl (Dilaudid Pf Inj) 0.5 mg IV.PUSH Q4H PRN PRN Reason: BREAKTHROUGH PAIN Sodium Chloride (Ns Inj) 1,000 mls @ 100 mls/hr IV.CONT .Q10H [facility] Last Infusion: 05/23/18 08:14 Dose: 0 mls/hr Sodium Chloride (Ns Inj) 500 mls @ 30 mls/hr IV.SIG .Q10H [facility] Last Admin: 05/19/18 04:28 Dose: Not Given Lorazepam (Ativan) 1 mg PO Q6H PRN PRN Reason: Nausea (alternative to zofran) Last Admin: 05/21/18 03:31 Dose: 1 mg Methylprednisolone Sodium Succinate (Solumedrol Inj) 40 mg IV.PUSH Q8HR [facility] Last Admin: 05/23/18 14:14 Dose: 40 mg Morphine Sulfate (Oramorph Sr) 15 mg PO Q12HR [facility] Last Admin: 05/23/18 08:08 Dose: 15 mg Naloxone HCl (Narcan Inj) 0.4 mg IV.PUSH UNSCH PRN PRN Reason: SEE LABEL COMMENTS Ondansetron HCl (Zofran Inj) 4 mg IV.PUSH Q6H PRN PRN Reason: NAUSEA OR VOMITING Last Admin: 05/20/18 12:03 Dose: 4 mg Ondansetron HCl (Zofran Odt) 4 mg PO Q6H PRN PRN Reason: NAUSEA Oxycodone/Acetaminophen (Percocet 10/325 Mg) 1 tab PO Q4H PRN PRN Reason: Pain 7 to 10 Last Admin: 05/22/18 04:23 Dose: 1 tab Oxycodone/Acetaminophen (Percocet 5/325 Mg) 1 tab PO Q4H PRN PRN Reason: Pain 3 to 6 Last Admin: 05/23/18 15:22 Dose: 1 tab Pantoprazole Sodium (Protonix Inj) 40 mg IV.PUSH Q24H [facility] Last Admin: 05/23/18 15:23 Dose: 40 mg Promethazine HCl (Phenergan) 12.5 mg PO Q6H [facility] Last Admin: 05/23/18 14:13 Dose: 12.5 mg Senna/Docusate Sodium (Roberta-Colace) 1 tab PO BID [facility] Last Admin: 05/23/18 08:09 Dose: 1 tab Allergies Allergy/AdvReac Type Severity Reaction Status Date / Time No Known Allergies Allergy Verified 05/12/18 11:34 Physical Exam Vital signs: Vital Signs 05/22/18 20:00 05/22/18 20:07 05/22/18 21:31 Temperature 97.9 F Pulse Rate 68 64 Respiratory Rate 17 18 Blood Pressure 135/78 Pulse Oximetry 97 05/23/18 00:00 05/23/18 01:25 05/23/18 04:00 Temperature 98.2 F 97.5 F L Pulse Rate 64 57 L Respiratory Rate 17 17 17 Blood Pressure 121/67 131/85 Pulse Oximetry 96 98 05/23/18 05:51 05/23/18 08:00 05/23/18 12:00 Temperature 97.2 F L 97.9 F Pulse Rate 59 L 69 Respiratory Rate 16 18 Blood Pressure 159/93 H 127/82 Pulse Oximetry 100 98 Intake & Output 05/22/18 05/23/18 05/23/18 18:59 06:59 18:59 Intake Total 1999 / 1999 1000 / 1000 Output Total 1200 / 1200 Balance 800 / 800 1000 / 1000 Intake: IV 1999 1000 / 1000 NS Inj 1,000 ML @ 100 mls/hr IV 1999 / 1999 1000 / 1000 .CONT .Q10H [facility] Rx#:[id number] Output: Urine 1200 / 1200 Other: Date of Last Bowel Movement 05/18/18 05/18/18 05/18/18 Assessment and Plan - Assessment (1) Cancer associated pain Code(s): G89.3 - Neoplasm related pain (acute) (chronic) Status: Acute - Plan discussed palliative xrt to left para-aortic nodes. discussed ct simulation, acute and late side effects, potential pain relief.
[2018-05-23] MEDS: Enoxaparin Inj 40 MG/0.4 ML Syringe SQ SCH (22:48)
[2018-05-24] MEDS: Morphine Sulfate 15 MG SR Tablet PO SCH (08:42)
[2018-05-24] MEDS: Senna/Docusate Sodium 8.6/50 MG Tablet PO SCH (08:42)
[2018-05-24] MEDS: MethylPREDNISolone Sod Succinate Inj 40 MG/ML Vial IV.PUSH SCH ×2 (08:46→14:07)
[2018-05-24] MEDS: Sod Chloride 0.9% Inj 1,000 ML IV.CONT SCH (08:56)
--- NOTE | 2018-05-24 09:18 | P.PNONC ---
Subjective Interval history: Afebrile. Patient denies any further nausea or vomiting. His pain is currently under control. He states that he thinks he is ready to go home. He was seen by radiation oncology and plans to follow-up on an outpatient basis with them. Objective Vital Signs/Intake & Output: Vital Signs 05/23/18 12:00 05/23/18 15:52 05/23/18 16:00 Temperature 97.9 F 98.1 F Pulse Rate 69 68 Respiratory Rate 18 18 Blood Pressure 127/82 130/81 Pulse Oximetry 98 97 05/23/18 20:00 05/24/18 00:00 05/24/18 04:00 Temperature 97.6 F 97.8 F 98.0 F Pulse Rate 69 63 65 Respiratory Rate 17 17 17 Blood Pressure 132/80 139/81 121/77 Pulse Oximetry 98 98 96 Intake & Output 05/23/18 05/24/18 05/24/18 18:59 06:59 18:59 Other: # Voids 3 Date of Last Bowel Movement 05/18/18 Result Diagrams: 05/21/18 03:54 05/21/18 03:54 Medications: Active Medications Generic Name Dose Route Start Last Admin Trade Name Freq PRN Reason Stop Dose Admin Acetaminophen 650 mg 05/17/18 18:23 05/23/18 15:04 Tylenol PO 650 mg Q4H PRN Administration Temp > 100.4 Al Hydroxide/Mg Hydroxide 30 ml 05/17/18 18:23 05/21/18 20:43 Milk Of Magnesia Liq PO 30 ml Q12H PRN Administration Mild Constipation Enoxaparin Sodium 40 mg 05/17/18 20:00 05/23/18 22:48 Lovenox Inj SQ 40 mg Q24H [facility] Administration Sodium Chloride 1,000 mls @ 100 mls/hr 05/17/18 20:00 05/24/18 08:56 Ns Inj IV.CONT Not Given .Q10H [facility] Sodium Chloride 500 mls @ 30 mls/hr 05/19/18 04:00 05/19/18 04:28 Ns Inj IV.SIG Not Given .Q10H [facility] Lorazepam 1 mg 05/20/18 09:23 05/21/18 03:31 Ativan PO 1 mg Q6H PRN Administration Nausea (alternative to zofran) Methylprednisolone Sodium Succinate 40 mg 05/17/18 22:00 05/24/18 08:46 Solumedrol Inj IV.PUSH 40 mg Q8HR [facility] Administration Morphine Sulfate 15 mg 05/22/18 21:00 05/24/18 08:42 Oramorph Sr PO 15 mg Q12HR [facility] Administration Ondansetron HCl 4 mg 05/17/18 18:23 05/20/18 12:03 Zofran Inj IV.PUSH 4 mg Q6H PRN Administration NAUSEA OR VOMITING Oxycodone/Acetaminophen 1 tab 05/20/18 09:25 05/22/18 04:23 Percocet 10/325 Mg PO 1 tab Q4H PRN Administration Pain 7 to 10 Oxycodone/Acetaminophen 1 tab 05/20/18 09:25 05/23/18 15:22 Percocet 5/325 Mg PO 1 tab Q4H PRN Administration Pain 3 to 6 Pantoprazole Sodium 40 mg 05/20/18 12:00 05/23/18 15:23 Protonix Inj IV.PUSH 40 mg Q24H [facility] Administration Promethazine HCl 12.5 mg 05/20/18 15:00 05/24/18 08:43 Phenergan PO Not Given Q6H [facility] Senna/Docusate Sodium 1 tab 05/22/18 13:45 05/24/18 08:42 Roberta-Colace PO 1 tab BID [facility] Administration Objective Remarks: GENERAL: Middle-age male patient, resting comfortably in bed, in no acute distress. SKIN: Warm and dry. HEAD: Normocephalic. EYES: No injection or drainage. NECK: Supple, trachea midline. CARDIOVASCULAR: +S1/S2 without murmurs. RESPIRATORY: Anterior breath sounds clear, equal bilaterally. Non-labored. GASTROINTESTINAL: Abdomen soft, non-tender. +BS. EXTREMITIES: No cyanosis, or edema. MUSCULOSKELETAL: Moving all extremities. NEUROLOGICAL: No obvious focal deficit. Awake, alert, and oriented x3. Assessment/Plan - Plan 52-year-old male with history of metastatic colon cancer that was diagnosed in 2013. Patient has been on multiple lines of treatment since that time. He is currently on Avastin with modified FOLFIRI chemotherapy since October 2017. Restaging scans have showed decrease in size of liver masses as well as decreasing size of lymphadenopathy. The patient began having left-sided abdominal pain associated with nausea and vomiting and has had several CT scans of the abdomen and pelvis that did not show any acute findings. He was seen outpatient last week with again complaints of increased left-sided abdominal pain and was instructed to come to the emergency room. MRI was ordered to evaluate for pain and GI was consulted. 1. Pain currently controlled. 2. Esophageal biopsy, pending. 3. Patient was evaluated by Dr. osuna, radiation oncology. He will follow-up with him for palliative radiation as an outpatient. 4. Patient is cleared for discharge home from an oncology standpoint. He should follow-up with oncology 2 weeks. - Attending Statement The exam, history, and the medical decision-making described in the above note were completed with the assistance of the mid-level provider. I reviewed and agree with the findings presented. I attest that I had a [id number] encounter with the patient on the same day, and personally performed and documented my assessment and findings in the medical record. Pain is better states that he is ready to go home DR Osuna input noted. Pt will have Palliative XRT as outpt. Ok to d/c FU office in 2 weeks.
[2018-05-24] MEDS ORDERED: Bisacodyl 10 MG Supp RECTAL PRN (10:18)
--- NOTE | 2018-05-24 10:22 | P.PNIM ---
Subjective Interval history: Follow up abdominal pain, nausea and vomiting. Patient states he is doing well. No nausea, vomiting or abdominal pain. He has not had a BM yet but does not feel distended. Physical Exam Vital signs: Vital Signs 05/23/18 12:00 05/23/18 15:52 05/23/18 16:00 Temperature 97.9 F 98.1 F Pulse Rate 69 68 Respiratory Rate 18 18 18 Blood Pressure 127/82 130/81 Pulse Oximetry 98 97 05/23/18 20:00 05/24/18 00:00 05/24/18 04:00 Temperature 97.6 F 97.8 F 98.0 F Pulse Rate 69 63 65 Respiratory Rate 17 17 17 Blood Pressure 132/80 139/81 121/77 Pulse Oximetry 98 98 96 Intake & Output 05/23/18 05/24/18 05/24/18 18:59 06:59 18:59 Other: # Voids 3 Date of Last Bowel Movement 05/18/18 Results - Labs CBC & Chem 7: 05/21/18 03:54 05/21/18 03:54 Assessment and Plan - Assessment (1) Intractable nausea and vomiting Code(s): R11.2 - Nausea with vomiting, unspecified Status: Acute (2) Dehydration Code(s): E86.0 - Dehydration Status: Acute (3) Hypokalemia Code(s): E87.6 - Hypokalemia Status: Acute - Plan 52-year-old male with metastatic colon cancer including liver metastasis, admitted secondary to hyperemesis which appears related to chemotherapy Pain under control. Evaluation by radiation oncologist pending. Discharge pending clearance by oncology and radiation oncology. Colon cancer Stomach ulcer Esophagitis Liver metastasis Left flank pain Transaminitis Immunocompromise Active chemotherapy -No acute concerns on imaging -continue baseline management -Oncology following, has signed off, follow up in 2 weeks -GI following -Continue PPI -Follow up out patient with DR. Livingston Constipation -Lactulose prn or suppository Hyperemesis, resolved Related to cancer and chemotherapy Continue IV hydration Advance diet as tolerated Discussed Condition With: Patient and RN
--- NOTE | 2018-05-24 10:49 | P.DS ---
Date of admission: 05/17/18 16:46 Primary care physician: Dashawn Baumann MD Attending physician on discharge: Panda Woods Anticipated date of discharge: 05/24/18 Brief History from admission: 52-year-old male with a history of colon cancer metastatic to liver, most recent chemo yesterday who presents for constant, sharp nonradiating left flank pain which is worse with movement, intractable nausea and nonbloody emesis, as well as chills over the past 3 days. patient follows with Dr. aBumann.. Patient visited the ER on 05/15. CT done shows no renal stones, however does show metastatic liver lesions with retroperitoneal lymphadenopathy, unchanged. DS: Diagnosis - Discharge Diagnosis (1) Intractable nausea and vomiting Status: Acute (2) Dehydration Status: Acute (3) Hypokalemia Status: Acute DS: Medications - Discharge Medications Prescriptions: sennosides-docusate sodium [Senna Plus] 1 tab PO BID #30 tab DS: Summary Hospital Course: 52-year-old male with metastatic colon cancer including liver metastasis, admitted secondary to hyperemesis which appears related to chemotherapy Colon cancer Stomach ulcer Esophagitis Liver metastasis Left flank pain Transaminitis Immunocompromise Active chemotherapy -No acute concerns on imaging -continue baseline management with pain medication -Oncology following, has signed off, follow up in 2 weeks -Continue PPI -Follow up out patient with DR. Livingston, radiation has been set up Constipation -Lactulose prn or suppository Hyperemesis, resolved Related to cancer and chemotherapy Advance diet as tolerated Cont antiemetics at home - Time Spent with Patient Total time spent providing and/or coordinating discharge services: Greater than 30 minutes - Quality: VTE Deep Vein Thrombosis/Pulmonary Embolism Present on Admission: No Exam Vital signs: Vital Signs 05/23/18 12:00 05/23/18 15:52 05/23/18 16:00 Temperature 97.9 F 98.1 F Pulse Rate 69 68 Respiratory Rate 18 18 18 Blood Pressure 127/82 130/81 Pulse Oximetry 98 97 05/23/18 20:00 05/24/18 00:00 05/24/18 04:00 Temperature 97.6 F 97.8 F 98.0 F Pulse Rate 69 63 65 Respiratory Rate 17 17 17 Blood Pressure 132/80 139/81 121/77 Pulse Oximetry 98 98 96 Intake & Output 05/23/18 05/24/18 05/24/18 18:59 06:59 18:59 Other: # Voids 3 Date of Last Bowel Movement 05/18/18 Results Procedures completed during hospitalization: EGD w/ biopsy Pending studies at discharge: Pending at discharge 05/19/18 07:34 Surgical [PTH] Routine - Impressions ITS Impressions Abdomen X-Ray 05/17/18 13:02 CONCLUSION: Unremarkable study except for stool. Chest X-Ray 05/17/18 13:02 CONCLUSION: No acute cardiopulmonary disease. Abdomen MRI 05/18/18 00:00 CONCLUSION: 1. 2 focal masses in the right lobe of the liver. These are nonspecific. They could represent neoplastic processes including metastatic lesions given the multiplicity versus multifocal primary tumors. These have been present on prior exams. When compared to the prior CT examination from 10/16/2017 the masses are smaller. This would suggest good response to treatment. This should be correlated with the patient's history. 2. Suspected small 3 mm gallstone. 3. Subcentimeter renal cysts. Discharge Plan - Discharge Disposition Patient Disposition: 01 Discharge Home - Discharge Condition Condition: Stable - Discharge Order Discharge Orders: Discharge Order (Routine); Ordered 05/24/18 Ordered By: Bianka Jordan - Discharge Details Anticipated Discharge Date: 05/24/18 - Physicians Team Primary Care Provider: Dashawn Baumann Attending Provider: Panda Woods Other Providers: Dashawn Baumann MD ; Dot Oquendo MD ; Roberth Livingston MD
[2018-05-24] MEDS ORDERED: *Heparin Central Flush 100 UNIT/ML 3 ML Syringe Periprocedural ONLY IV.FLUSH ONE (14:00)
[2018-05-24] MEDS: Pantoprazole Inj 40 MG Vial IV.PUSH SCH (14:06)
[2018-05-24] MEDS ORDERED: Heparin Central Flush 100 UNIT/ML 5 ML Vial IV.FLUSH ONE (14:15)
== END 2018-05-24 15:04 | disposition home or self-care (01) ==
LOC: NEDA 11:26 → NEPD 11:26 → N06 21:21
PROVIDERS: ADMIT Internal Medicine; ATTEND Internal Medicine
PROC: PANENDO (2018-05-19 14:30)
DX: Z90.49 Acquired absence of other specified parts of digestive tract; E87.6 Hypokalemia; E86.0 Dehydration; K25.9 Gastric ulcer, unspecified as acute or chronic, without hemorrhage or perforation; Z79.899 Other long term (current) drug therapy; C18.7 Malignant neoplasm of sigmoid colon; Z87.891 Personal history of nicotine dependence; T45.1X5A Adverse effect of antineoplastic and immunosuppressive drugs, initial encounter; G89.3 Neoplasm related pain (acute) (chronic); K20.9 Esophagitis, unspecified; K26.9 Duodenal ulcer, unspecified as acute or chronic, without hemorrhage or perforation; R19.7 Diarrhea, unspecified; K44.9 Diaphragmatic hernia without obstruction or gangrene; C78.7 Secondary malignant neoplasm of liver and intrahepatic bile duct; R11.2 Nausea with vomiting, unspecified; C61 Malignant neoplasm of prostate; R59.0 Localized enlarged lymph nodes; N28.1 Cyst of kidney, acquired; R05 Cough; R68.83 Chills (without fever); Z85.048 Personal history of other malignant neoplasm of rectum, rectosigmoid junction, and anus

== ENCOUNTER 2018-05-26 08:15 | Observation (INO) ==
[2018-05-26] MEDS ORDERED: Sod Chloride 0.9% Inj 1,000 ML IV.SIG ONE (08:27)
[2018-05-26] MEDS ORDERED: Famotidine PF Inj 20 MG/2 ML Vial IV.PUSH ONE (08:27)
[2018-05-26] MEDS ORDERED: Morphine Inj 4 MG/ML Vial IV.PUSH ONE (08:27)
--- NOTE | 2018-05-26 08:33 | ED ---
HPI General Chief Complaint: Abdominal Pain Stated Complaint: Abd Pain Time Seen by Provider: 05/26/18 08:27 Source: patient Mode of arrival: ambulatory Limitations: no limitations History of Present Illness HPI narrative: The patient is a 52-year-old male who presents to the emergency department via EMS for nausea, vomiting, and abdominal pain. The patient has a history of liver cancer with metastatic disease and is currently followed by his oncologist, Dr. Baumann, and his radiation physician. The patient last had chemotherapy 2 weeks ago via port placed in the left upper chest wall. The patient states he had an open procedure with partial removal of the liver that was performed by Dr. Carrero, approximately 3 years ago per the patient's report. The patient was just recently hospitalized and had multiple CTs of the abdomen and pelvis performed, there is no obstruction at that time and no obvious identification of the patient's abdominal pain. The patient was discharged home yesterday with improvement of his symptoms, however , they returned to 3 AM. The patient did take an oral pain medication and Zofran at home without any alleviation of his symptoms. The patient also received Zofran 4 mg intravenously by EMS prior to arrival. MD complaint: abdominal pain Onset (ago): hour(s) Pain Consistency: intermittent and colicky Location: diffuse Severity: moderate Severity scale (1-10): 6 Quality: cramping and sharp Radiation: LUQ Migration to: no migration Relieving factors: nothing Exacerbating factors: nothing Context: history of similar episodes Associated symptoms: nausea and vomiting Treatments prior to arrival: prescription analgesics Related Data Previous Rx's Medication Instructions Recorded ondansetron [Zofran ODT] 4 mg PO Q8H PRN #10 tab 05/12/18 hydrocodone-acetaminophen [Muldrow] 1 tab PO Q6H PRN #12 tab 05/15/18 acetaminophen 650 mg PO Q4H PRN tab 05/24/18 bisacodyl [Bisac-Evac] 10 mg NM DAILY PRN ea 05/24/18 calcium carbonate 500 mg CHEW Q2H PRN tab 05/24/18 lorazepam 1 mg PO Q6H PRN tab 05/24/18 morphine 15 mg PO Q12HR tab 05/24/18 oxycodone-acetaminophen 1 tab PO Q4H PRN tab 05/24/18 oxycodone-acetaminophen 1 tab PO Q4H PRN tab 05/24/18 promethazine 12.5 mg PO Q6H tab 05/24/18 sennosides-docusate sodium [Senna 1 tab PO BID #30 tab 05/24/18 Plus] Allergies Allergy/AdvReac Type Severity Reaction Status Date / Time No Known Allergies Allergy Verified 05/26/18 08:33 Review of Systems ROS: all other systems reviewed are negative [facility] Family History Family History Father Healthy adult Mother Healthy adult Social History Social History Substance History: Active Abuse Second Hand Smoke Exposure: No Smoking Status: Never smoker Tobacco Type: Cigarettes How Often Do You Have a Drink Containing Alcohol: Never Recent Travel in [facility] within the Last 8 Weeks: No Recent Out of Country Travel within the Last 8 Weeks: No Exam Narrative Exam Narrative: GENERAL: Awake, alert, 52-year-old male who appears his stated age and is actively vomiting. SKIN: Focused skin assessment warm/dry. HEAD: Atraumatic. Normocephalic. EYES: No injection or drainage. ENT: No nasal bleeding or discharge. Slightly dry mucous membranes. NECK: Trachea midline. No JVD. CARDIOVASCULAR: Regular rate and rhythm. No murmur appreciated. Port in place left chest wall. RESPIRATORY: No accessory muscle use. Clear to auscultation. Breath sounds equal bilaterally. GASTROINTESTINAL: Abdomen soft, minimal epigastric tenderness. Well-healed midline scar. Radiation markers in place. MUSCULOSKELETAL: No obvious deformities. No clubbing. No cyanosis. No edema. NEUROLOGICAL: Awake and alert. No obvious cranial nerve deficits. Motor grossly within normal limits. Normal speech. PSYCHIATRIC: Appears slightly anxious. Insight and judgment appear normal. Course Initial Documented Vital Signs Temperature 97.6 F 05/26/18 08:23 Pulse Rate 87 05/26/18 08:23 Respiratory Rate 16 05/26/18 08:23 Blood Pressure 118/80 05/26/18 08:23 Pulse Oximetry 96 05/26/18 08:23 Last Documented Vital Signs Temperature 97.6 F 05/26/18 08:23 Pulse Rate 72 05/26/18 09:29 Respiratory Rate 16 05/26/18 09:29 Blood Pressure 121/74 05/26/18 09:29 Pulse Oximetry 96 05/26/18 09:29 Medical Decision Making MDM Narrative Medical decision making narrative: The patient's port was accessed. Labs were drawn and sent and the patient was placed on cardiac telemetry monitoring and continuous pulse oximetry monitoring. The patient was administered IV fluids, Compazine, and morphine. Flat and upright x-ray was obtained to evaluate for possible obstruction. I did review the EMR, the patient had [address] scans of the abdomen and pelvis, one with contrast and 1 without contrast which did reveal stable findings, there were no acute findings noted. The patient's white count was noted to be elevated at 19.8, I reviewed the previous white counts which were in the normal range. This may be secondary to neutrophil migration secondary to vomiting, patient is afebrile. However, UA did reveal RBCs and bacteria, culture was indicated, therefore, patient was administered Rocephin 1 g intravenously. The patient was reevaluated at 9:15 AM, was sleeping, heart rate was in the 60s. The patient's potassium was 2.8, therefore , it was ordered to be replaced intravenously as patient has significant nausea and vomiting and had 3 different doses of antiemetics. The patient will be a 23 hour observation to the medical service for IV fluids and potassium supplementation. I discussed the patient with Dr. Woods who agrees with 23 hour observation. Medical Screen Exam Complete: Yes Emergency Medical Condition: Yes Differential Diagnosis Differential Diagnosis: Differential diagnosis includes intractable nausea/ vomiting, gastritis, enteritis, small bowel obstruction, volvulus, pancreatitis , chronic pain, electrolyte abnormality, dehydration. Lab Data Result diagrams: 05/26/18 08:40 05/26/18 08:40 Lab Results 05/26/18 05/26/18 05/26/18 Range/Units 08:25 08:40 08:40 WBC 19.8 H (4.0-11.0) th/mm3 RBC 4.61 (4.50-5.90) mil/mm3 Hgb 15.5 (13.0-17.0) gm/dL Hct 45.5 (39.0-51.0) % MCV 98.7 (80.0-100.0) fL MCH 33.5 (27.0-34.0) pg MCHC 34.0 (32.0-36.0) % RDW 16.2 (11.6-17.2) % Plt Count 194 D (150-450) th/mm3 MPV 9.0 (7.0-11.0) fL Neut % (Auto) 84.2 H (16.0-70.0) % Lymph % (Auto) 7.5 L (9.0-44.0) % [place] % (Auto) 6.8 (0.0-8.0) % Eos % (Auto) 0.9 (0.0-4.0) % Baso % (Auto) 0.6 (0.0-2.0) % Neut # (Auto) 16.6 H (1.8-7.7) th/mm3 Lymph # (Auto) 1.5 (1.0-4.8) th/mm3 [place] # (Auto) 1.4 H (0.0-0.9) th/mm3 Eos # (Auto) 0.2 (0.0-0.4) th/mm3 Baso # (Auto) 0.1 (0.0-0.2) th/mm3 WBC Differential . Differential Comment Auto diff final Sodium 138 (136-145) meq/L Potassium 2.8 L* (3.5-5.1) meq/L Chloride 99 (98-107) meq/L Carbon Dioxide 25.6 (21.0-32.0) meq/L Anion Gap 13 (5-15) meq/L BUN 15 (7-18) mg/dL Creatinine 0.75 (0.60-1.30) mg/dL Estimated GFR Greater than 89 (>89) mL/min Random Glucose 158 H (74-106) mg/dL Lactic Acid (0.4-2.0) mmol/L Calcium 8.8 (8.5-10.1) mg/dL Total Bilirubin 0.7 (0.2-1.0) mg/dL AST 24 (15-37) U/L ALT 54 (12-78) U/L Alkaline Phosphatase 146 H (45-117) U/L Total Protein 7.2 D (6.4-8.2) g/dL Albumin 3.9 (3.4-5.0) g/dL Lipase 385 (73-393) U/L Urine Color Yellow (Yellw/Straw) Urine Clarity Cloudy H (Clear) Urine pH 7.0 (5.0-8.5) Ur Specific Patterson 1.017 (1.002-1.035) Urine Protein Negative (Neg-Trace) mg/dL Urine Glucose (UA) Negative (Negative) mg/dL Urine Ketones Negative (Negative) mg/dL Urine Occult Blood Small H (Negative) Urine Nitrate Negative (Negative) Urine Bilirubin Negative (Negative) Urine Urobilinogen 2.0 H (Less than 2) mg/dL Ur Leukocyte Esterase Negative (Negative) Urine RBC 10 H (0-3) /hpf Urine WBC 2 (0-5) /hpf Amorphous Sediment Rare H (None) /hpf Urine Bacteria Moderate H (None) /hpf Urine Mucus Few H (Occasional) /lpf Micro UA Comment Culture indicated Ur Microscopic Review Not Reportable Urine Culture Comments Culture indicated 05/26/18 Range/Units 08:40 WBC (4.0-11.0) th/mm3 RBC (4.50-5.90) mil/mm3 Hgb (13.0-17.0) gm/dL Hct (39.0-51.0) % MCV (80.0-100.0) fL MCH (27.0-34.0) pg MCHC (32.0-36.0) % RDW (11.6-17.2) % Plt Count (150-450) th/mm3 MPV (7.0-11.0) fL Neut % (Auto) (16.0-70.0) % Lymph % (Auto) (9.0-44.0) % [place] % (Auto) (0.0-8.0) % Eos % (Auto) (0.0-4.0) % Baso % (Auto) (0.0-2.0) % Neut # (Auto) (1.8-7.7) th/mm3 Lymph # (Auto) (1.0-4.8) th/mm3 [place] # (Auto) (0.0-0.9) th/mm3 Eos # (Auto) (0.0-0.4) th/mm3 Baso # (Auto) (0.0-0.2) th/mm3 WBC Differential Differential Comment Sodium (136-145) meq/L Potassium (3.5-5.1) meq/L Chloride (98-107) meq/L Carbon Dioxide (21.0-32.0) meq/L Anion Gap (5-15) meq/L BUN (7-18) mg/dL Creatinine (0.60-1.30) mg/dL Estimated GFR (>89) mL/min Random Glucose (74-106) mg/dL Lactic Acid 3.9 H (0.4-2.0) mmol/L Calcium (8.5-10.1) mg/dL Total Bilirubin (0.2-1.0) mg/dL AST (15-37) U/L ALT (12-78) U/L Alkaline Phosphatase (45-117) U/L Total Protein (6.4-8.2) g/dL Albumin (3.4-5.0) g/dL Lipase (73-393) U/L Urine Color (Yellw/Straw) Urine Clarity (Clear) Urine pH (5.0-8.5) Ur Specific Patterson (1.002-1.035) Urine Protein (Neg-Trace) mg/dL Urine Glucose (UA) (Negative) mg/dL Urine Ketones (Negative) mg/dL Urine Occult Blood (Negative) Urine Nitrate (Negative) Urine Bilirubin (Negative) Urine Urobilinogen (Less than 2) mg/dL Ur Leukocyte Esterase (Negative) Urine RBC (0-3) /hpf Urine WBC (0-5) /hpf Amorphous Sediment (None) /hpf Urine Bacteria (None) /hpf Urine Mucus (Occasional) /lpf Micro UA Comment Ur Microscopic Review Urine Culture Comments Imaging Data Radiologist's impression: Abdomen X-Ray 05/26/18 08:27 CONCLUSION: Some air-fluid levels remain in the nondilated small bowel but there is normal stool throughout the colon. No definite evidence of obstruction. No free air or pneumatosis seen. Similar pattern to April. Discharge Plan Discharge Disposition Patient Disposition: 30 Still Patient Discharge Condition Condition: Stable Discharge Details Diagnosis: Intractable nausea and vomiting, Dehydration, Hypokalemia, Acidosis, lactic Physicians Team ED Provider: Tyler Jaeger Primary Care Provider: Wale Rice Rxs /Orders / Referrals /Forms Prescriptions: No Action ondansetron [Zofran ODT] 4 mg tablet,disintegrating 4 mg PO Q8H PRN (Reason: nausea and vomiting) Qty: 10 RF: 0 hydrocodone-acetaminophen [Muldrow] 7.5-325 mg tablet 1 tab PO Q6H PRN (Reason: pain) Qty: 12 RF: 0 acetaminophen 325 mg Tablet 650 mg PO Q4H PRN (Reason: Temp > 100.4) RF: 0 oxycodone-acetaminophen 5-325 mg Tablet 1 tab PO Q4H PRN (Reason: Pain 3 to 6) RF: 0 oxycodone-acetaminophen 10-325 mg Tablet 1 tab PO Q4H PRN (Reason: Pain 7 to 10) RF: 0 bisacodyl [Bisac-Evac] 10 mg Suppository 10 mg NM DAILY PRN (Reason: Severe Consitipation) RF: 0 promethazine 25 mg Tablet 12.5 mg PO Q6H RF: 0 calcium carbonate 200 mg calcium (500 mg) Tablet,Chewable 500 mg CHEW Q2H PRN (Reason: Indigestion) RF: 0 morphine 15 mg Tablet Extended Release 15 mg PO Q12HR RF: 0 lorazepam 1 mg Tablet 1 mg PO Q6H PRN (Reason: Nausea (alternative to zofran)) RF: 0 sennosides-docusate sodium [Senna Plus] 8.6-50 mg Tablet 1 tab PO BID Qty: 30 RF: 0 Status ED Status: Admitted Observation Patient
[2018-05-26 08:56] LABS: Baso # (Auto) 0.1 th/mm3 (0.0-0.2); Baso % (Auto) 0.6 % (0.0-2.0); Eos # (Auto) 0.2 th/mm3 (0.0-0.4); Eos % (Auto) 0.9 % (0.0-4.0); Hematocrit 45.5 % (39.0-51.0); Hemoglobin 15.5 gm/dL (13.0-17.0); Lymph # (Auto) 1.5 th/mm3 (1.0-4.8); Lymph % (Auto) 7.5 % (9.0-44.0); Mean Corpuscular Hemoglobin 33.5 pg (27.0-34.0); Mean Corpuscular Volume 98.7 fL (80.0-100.0); Mono # (Auto) 1.4 th/mm3 (0.0-0.9); Mono % (Auto) 6.8 % (0.0-8.0); Neut # (Auto) 16.6 th/mm3 (1.8-7.7); Neut % (Auto) 84.2 % (16.0-70.0); Platelet Count 194 th/mm3 (150-450); Red Blood Count 4.61 mil/mm3 (4.50-5.90); Red Cell Distribution Width 16.2 % (11.6-17.2); White Blood Count 19.8 th/mm3 (4.0-11.0)
[2018-05-26 09:11] LABS: Amorphous Sediment,Urine Rare /hpf; Bacteria,Urine Moderate /hpf; Bilirubin,Urine Negative (Negative); Clarity,Urine Cloudy (Clear); Color,Urine Yellow (Yellw/Straw); Glucose,Urine (UA) Negative (Negative); Leukocyte Esterase,Urine Negative (Negative); Mucus,Urine Few /lpf (Occasional); Nitrite,Urine Negative (Negative); Specific Gravity,Urine 1.017 (1.002-1.035)
--- NOTE | 2018-05-26 09:19 | XR ---
EXAM DATE: 05/26/2018 9:15 AM EDT AGE/SEX: 52 years / Male INDICATIONS: Abdominal pain. CLINICAL DATA: This is the patient's sequela encounter. Patient reports that signs and symptoms have been present for 2 weeks and indicates a pain score of 10/10. MEDICAL/SURGICAL HISTORY: . Carcinoma, colon. Carcinoma, prostatic. . Colon resection. COMPARISON: [facility] [place], ABDOMEN 2V FLAT & UPRIGHT, 05/17/2018. . FINDINGS: Supine and upright views of the abdomen were performed. The abdominal bowel gas pattern is normal. Th ere are some air-fluid levels in some nondilated loops of small bowel. No abnormal masses, calcificat ions, or organomegaly is seen. The visualized lower lungs are clear. No evidence of free intraperiton eal gas. The osseous structures are unremarkable. CONCLUSION: Some air-fluid levels remain in the nondilated small bowel but there is normal stool throughout the c olon. No definite evidence of obstruction. No free air or pneumatosis seen. Similar pattern to April . Electronically signed by: Gray Corona MD 05/26/2018 9:17 AM EDT
[2018-05-26 09:34] LABS: Alanine Aminotransferase 54 U/L (12-78); Albumin 3.9 g/dL (3.4-5.0); Alkaline Phosphatase 146 U/L (45-117); Anion Gap 13 meq/L (5-15); Aspartate Aminotransferase 24 U/L (15-37); Blood Urea Nitrogen 15 mg/dL (7-18); Calcium 8.8 mg/dL (8.5-10.1); Carbon Dioxide 25.6 meq/L (21.0-32.0); Chloride 99 meq/L (98-107); Glomerular Filtration Rate Greater Than 89 mL/min (>89); Glucose,Random 158 mg/dL (74-106); Lipase 385 U/L (73-393); Sodium 138 meq/L (136-145); Total Protein 7.2 g/dL (6.4-8.2)
[2018-05-26 09:38] LABS: Potassium 2.8 meq/L (3.5-5.1)
[2018-05-26] MEDS ORDERED: Sod Chloride 0.9% Inj 1,000 ML IV.CONT SCH (10:00)
[2018-05-26] MEDS: Potassium Chlor 20 mEq Premix 20 MEQ/100 ML PIGGYBACK IV.SIG SCH ×2 (10:02→11:50)
[2018-05-26] MEDS ORDERED: Promethazine 25 MG Supp RECTAL PRN (10:24)
[2018-05-26] MEDS: Sod Chloride 0.9% Inj 1,000 ML IV.CONT SCH ×2 (10:30→19:45)
[2018-05-26] MEDS ORDERED: LORazepam 1 MG Tablet PO PRN (17:22)
--- NOTE | 2018-05-26 17:32 | P.HPIM ---
History of Present Illness Primary Care Physician: Wale Rice History of Present Illness: 52-year-old male with a history of metastatic colon cancer to liver, most recent chemotherapy 2 weeks ago, as well as recent admission for nausea who presents with acute onset severe sharp whole abdomen pain this morning along with intractable nausea, nonbloody vomiting. Abdominal pain resolved upon treatment in the ER, and his nausea has currently improved after IV antiemetics in the ER. Patient reports that he did not have any pain meds yesterday until last night, that after pain meds last night his abdominal pain was under control. He says this current abdominal pain feels like an exacerbation of his chronic abdominal pain. He denies any chest pain, shortness of breath. He is not sure if his last bowel movement, however says he does not feel constipated. Review of Systems All other systems reviewed negative except as stated in HPI PMFSH - History History Provided By: Patient - Medical History Medical History: Medical History (Last Reviewed 05/26/18 @ 08:24 by Airam Leon) Colon cancer Liver metastases Port-A-Cath in place Prostate CA - Surgical History Surgical History: Surgical History (Last Reviewed 05/26/18 @ 08:24 by Airam Leon) History of colon resection - Family History Family History: Family History (Last Updated 05/17/18 @ 21:14 by Panda Woods MD) Father Healthy adult Mother Healthy adult - Tobacco History Second Hand Smoke Exposure: No Smoking Status: Never smoker Tobacco Type: Cigarettes - Alcohol History How Often Do You Have a Drink Containing Alcohol: Never - Substance Use History Substance History: Active Abuse - Substance Use Type Marijuana Status: Active - Travel History Recent Travel in the [place] Within the Last 8 Weeks: No Recent Travel Out of the Country Within the Last 8 Weeks: No - Immunization History Tetanus Immunization: Unsure Medications and Allergies Active Medications: Active Medications Hydrocodone Bitart/Acetaminophen ([place] 7.5/325) 1 tab PO Q6H PRN PRN Reason: pain 1-10 Sodium Chloride (Ns Inj) 1,000 mls @ 100 mls/hr IV.CONT .Q10H ARUN Last Admin: 05/26/18 10:30 Dose: Not Given Ceftriaxone Sodium 1,000 mg/ (Sodium Chloride) 100 mls @ 200 mls/hr IV.SIG Q24H ARUN Lorazepam (Ativan) 1 mg PO Q6H PRN PRN Reason: Nausea (alternative to zofran) Miscellaneous (Pill Splitter) 1 each OTHER UNSCH PRN PRN Reason: PILL SPIT Morphine Sulfate (Oramorph Sr) 15 mg PO Q12HR ARUN Ondansetron HCl (Zofran Odt) 4 mg PO Q6H PRN PRN Reason: NAUSEA OR VOMITING Ondansetron HCl (Zofran Inj) 4 mg IV.PUSH Q6H PRN PRN Reason: NAUSEA OR VOMITING Ondansetron HCl (Zofran Odt) 4 mg PO Q6H ARUN Promethazine HCl (Phenergan) 25 mg PO Q6H PRN PRN Reason: NAUSEA OR VOMITING Promethazine HCl (Phenergan Supp) 25 mg RECTAL Q6H PRN PRN Reason: NAUSEA OR VOMITING Promethazine HCl (Phenergan) 12.5 mg PO Q6H ARUN Senna/Docusate Sodium (Roberta-Colace) 1 tab PO BID ARUN Sodium Chloride (Ns Flush) 2 ml IV.FLUSH PRN PRN PRN Reason: FLUSH AFTER USING IV ACCESS Last Admin: 05/26/18 08:53 Dose: 2 ml Allergies Allergy/AdvReac Type Severity Reaction Status Date / Time No Known Allergies Allergy Verified 05/26/18 08:33 Exam Vital signs: Vital Signs 05/26/18 08:23 05/26/18 09:29 05/26/18 11:56 Temperature 97.6 F Pulse Rate 87 72 95 H Respiratory Rate 16 16 14 Blood Pressure 118/80 121/74 122/82 Pulse Oximetry 96 96 98 05/26/18 13:00 05/26/18 15:31 05/26/18 16:00 Temperature 98.2 F Pulse Rate 74 67 72 Respiratory Rate 18 18 Blood Pressure 118/78 124/76 Pulse Oximetry 99 96 Intake & Output 05/25/18 05/26/18 05/26/18 18:59 06:59 18:59 Intake Total 1300 / 1300 Balance 1300 / 1300 Weight 72.575 kg Intake: IV 1300 / 1300 KCl 20 mEq Premix Inj 20 meq In 200 / 200 100 ml @ 50 mls/hr IV.SIG Q2H ARUN Rx#:[id number] NS Inj 1,000 ML @ Wide Open IV. 1000 / 1000 SIG BOLUS ONE Rx#:[id number] Rocephin Inj 1,000 MG In NS Inj 100 / 100 100 ML @ 200 mls/hr IV.SIG ONCE ONE Rx#:[id number] Other: Date of Last Bowel Movement 05/26/18 Narrative: GENERAL: Patient sitting up in bed. Appears somewhat uncomfortable. Alert and oriented 3. SKIN: Warm and dry. HEAD: Atraumatic. Normocephalic. EYES: Pupils equal and round. No scleral icterus. No injection or drainage. ENT: No nasal bleeding or discharge. Mucous membranes pink and moist. NECK: Trachea midline. No JVD. CARDIOVASCULAR: Regular rate and rhythm. RESPIRATORY: No accessory muscle use. Clear to auscultation. Breath sounds equal bilaterally. GASTROINTESTINAL: Abdomen soft, non-tender, nondistended. No rebound or guarding. Positive bowel sounds. MUSCULOSKELETAL: Extremities without clubbing, cyanosis, or edema. No obvious deformities. NEUROLOGICAL: Awake and alert. No obvious cranial nerve deficits. Motor grossly within normal limits. Five out of 5 muscle strength in the arms and legs. Normal speech. PSYCHIATRIC: Appropriate mood and affect; insight and judgment normal. Results - Labs CBC & Chem 7: 05/26/18 08:40 05/26/18 08:40 Labs: Short CBC 05/26/18 Range/Units 08:40 WBC 19.8 H (4.0-11.0) th/mm3 Hgb 15.5 (13.0-17.0) gm/dL Hct 45.5 (39.0-51.0) % Plt Count 194 D (150-450) th/mm3 BMP 05/26/18 08:40 Sodium 138 Potassium 2.8 L* Chloride 99 Carbon Dioxide 25.6 BUN 15 Creatinine 0.75 Calcium 8.8 Liver Function 05/26/18 Range/Units 08:40 Total Bilirubin 0.7 (0.2-1.0) mg/dL AST 24 (15-37) U/L ALT 54 (12-78) U/L Alkaline Phosphatase 146 H (45-117) U/L Albumin 3.9 (3.4-5.0) g/dL Urine 05/26/18 Range/Units 08:25 Urine Color Yellow (Yellw/Straw) Urine Clarity Cloudy H (Clear) Urine pH 7.0 (5.0-8.5) Ur Specific Dick[place] 1.017 (1.002-1.035) Urine Protein Negative (Neg-Trace) mg/dL Urine Glucose (UA) Negative (Negative) mg/dL - Imaging Impressions Abdomen X-Ray 05/26/18 08:27 CONCLUSION: Some air-fluid levels remain in the nondilated small bowel but there is normal stool throughout the colon. No definite evidence of obstruction. No free air or pneumatosis seen. Similar pattern to [place]. Caprini VTE Risk Assessment Caprini VTE Risk Assessment: Moderate/High Risk (score >= 2) Caprini Risk Assessment Model: Point Value = 1 Point Value = 2 Point Value = 3 Point Value = 5 Age 41-60 Minor surgery BMI > 25 kg/m2 Swollen legs Varicose veins or History of unexplained or recurrent spontaneous Oral contraceptives or hormone replacement Sepsis (< 1 month) Serious lung disease, including pneumonia (< 1 month) Abnormal pulmonary function Acute myocardial infarction Congestive heart failure (< 1 month) History of inflammatory bowel disease Medical patient at bed rest Age 61-74 Arthroscopic surgery Major open surgery (> 45 min) Laparoscopic surgery (> 45 min) Malignancy Confined to bed (> 72 hours) Immobilizing plaster cast Central venous access Age >= 75 History of VTE Family history of VTE Factor V Leiden Prothrombin [id number] Lupus anticoagulant Anticardiolipin antibodies Elevated serum homocysteine Heparin-induced thrombocytopenia Other congenital or acquired thrombophilia Stroke (< 1 month) Elective arthroplasty Hip, pelvis, or leg fracture Acute spinal cord injury (< 1 month) Prophylaxis Regimen: Total Risk Factor Score Risk Level Prophylaxis Regimen 0-1 Low Early ambulation 2 Moderate Order ONE of the following: *Sequential Compression Device (SCD) *Heparin 5000 units SQ BID 3-4 Higher Order ONE of the following medications: *Heparin 5000 units SQ TID *Enoxaparin/Lovenox 40 mg SQ daily (WT < 150 kg, CrCl > 30 mL/min) *Enoxaparin/Lovenox 30 mg SQ daily (WT < 150 kg, CrCl > 10-29 mL/min) *Enoxaparin/Lovenox 30 mg SQ BID (WT < 150 kg, CrCl > 30 mL/min) AND/OR *Sequential Compression Device (SCD) 5 or more Highest Order ONE of the following medications: *Heparin 5000 units SQ TID (Preferred with Epidurals) *Enoxaparin/Lovenox 40 mg SQ daily (WT < 150 kg, CrCl > 30 mL/min) *Enoxaparin/Lovenox 30 mg SQ daily (WT < 150 kg, CrCl > 10-29 mL/min) *Enoxaparin/Lovenox 30 mg SQ BID (WT < 150 kg, CrCl > 30 mL/min) AND *Sequential Compression Device (SCD) Assessment and Plan - Plan 52-year-old male with metastatic colon cancer including liver metastasis, admitted secondary to hyperemesis which appears related to chemotherapy //Uncontrolled nausea and vomiting. -No evidence of obstruction on abdominal film. -Secondary to chemotherapy 2 weeks prior -Schedule Zofran with Zofran, Reglan as needed. //Lactic acidosis. =-With lactic acid 3.9 on admission. -Likely secondary to nausea and vomiting in setting of liver dysfunction, possible thiamine deficiency.. No signs of acute infection. -Resolved. //Leukocytosis Of 19.8. Likely secondary to nausea or vomiting. Urinalysis only with RBCs. No evidence of infection. Continue to monitor. //Hypokalemia 2.8. Likely secondary to nausea and vomiting. Replace. Monitor. //Colon cancer //Stomach ulcer //Esophagitis //Liver metastasis //Immunocompromise //Active chemotherapy -No acute concerns on imaging -continue baseline management -Oncology following, has signed off, follow up in 2 weeks -GI following -Continue PPI -Follow up out patient with Dr. Ibis DR. Factor //Constipation -No acute constipation noted -Lactulose prn or suppository Discussed Condition With: Patient, nurse, ED physician. Discharge Planning: Hopefully discharge in the next 2 days if nausea stable.
[2018-05-26] MEDS: Morphine Sulfate 15 MG SR Tablet PO SCH (20:33)
[2018-05-26] MEDS: Senna/Docusate Sodium 8.6/50 MG Tablet PO SCH (20:33)
[2018-05-27 05:43] LABS: Baso % (Auto) 0.3 % (0.0-2.0); Eos # (Auto) 0.2 th/mm3 (0.0-0.4); Eos % (Auto) 2.9 % (0.0-4.0); Hematocrit 37.7 % (39.0-51.0); Hemoglobin 13.1 gm/dL (13.0-17.0); Lymph # (Auto) 1.9 th/mm3 (1.0-4.8); Lymph % (Auto) 23.7 % (9.0-44.0); Mean Corpuscular HGB Conc 34.6 % (32.0-36.0); Mean Corpuscular Hemoglobin 34.3 pg (27.0-34.0); Mean Corpuscular Volume 99.2 fL (80.0-100.0); Mean Platelet Volume 8.8 fL (7.0-11.0); Mono # (Auto) 0.7 th/mm3 (0.0-0.9); Mono % (Auto) 8.2 % (0.0-8.0); Neut # (Auto) 5.3 th/mm3 (1.8-7.7); Neut % (Auto) 64.9 % (16.0-70.0); Platelet Count 139 th/mm3 (150-450); White Blood Count 8.1 th/mm3 (4.0-11.0)
[2018-05-27] MEDS: Sod Chloride 0.9% Inj 1,000 ML IV.CONT SCH ×2 (06:04→17:04)
[2018-05-27 06:18] LABS: Alanine Aminotransferase 38 U/L (12-78); Albumin 2.9 g/dL (3.4-5.0); Alkaline Phosphatase 107 U/L (45-117); Anion Gap 6 meq/L (5-15); Aspartate Aminotransferase 20 U/L (15-37); Blood Urea Nitrogen 7 mg/dL (7-18); Calcium 7.9 mg/dL (8.5-10.1); Carbon Dioxide 28.8 meq/L (21.0-32.0); Chloride 105 meq/L (98-107); Glomerular Filtration Rate Greater Than 89 mL/min (>89); Glucose,Random 82 mg/dL (74-106); Potassium 3.8 meq/L (3.5-5.1); Sodium 140 meq/L (136-145); Total Protein 5.7 g/dL (6.4-8.2)
[2018-05-27] MEDS: Senna/Docusate Sodium 8.6/50 MG Tablet PO SCH ×2 (09:08→21:55)
[2018-05-27] MEDS: Morphine Sulfate 15 MG SR Tablet PO SCH ×2 (09:08→21:55)
--- NOTE | 2018-05-27 12:10 | P.PN ---
Subjective Interval history: had a good night no abdominal pain, nausea or vomiting + flatus states that he had 2 spring rolls yesterday when sarted having nausea and vomtiig states sensitive to food with onions Physical Exam Vital signs: Vital Signs 05/26/18 13:00 05/26/18 15:31 05/26/18 16:00 Temperature 98.2 F Pulse Rate 74 67 72 Respiratory Rate 18 18 Blood Pressure 118/78 124/76 Pulse Oximetry 99 96 05/26/18 16:30 05/26/18 19:49 05/26/18 20:08 Temperature 98.3 F Pulse Rate 68 73 76 Respiratory Rate 16 Blood Pressure 138/83 Pulse Oximetry 97 05/26/18 21:03 05/27/18 00:00 05/27/18 00:05 Temperature 98.2 F Pulse Rate 75 66 Respiratory Rate 18 16 Blood Pressure 120/78 Pulse Oximetry 97 05/27/18 04:02 05/27/18 04:05 05/27/18 08:56 Temperature 97.8 F Pulse Rate 60 66 71 Respiratory Rate 18 Blood Pressure 134/78 Pulse Oximetry 97 05/27/18 09:05 Temperature 98.4 F Pulse Rate 98 H Respiratory Rate 18 Blood Pressure 133/77 Pulse Oximetry 97 Intake & Output 05/26/18 05/27/18 05/27/18 18:59 06:59 18:59 Intake Total 1400 / 1400 1999 / 1999 Output Total 400 / 400 1000 / 1000 Balance 1000 / 1000 1000 / 1000 Weight 72.575 kg 72.5 kg Intake: IV 1300 / 1300 1999 / 1999 NS Inj 1,000 ML @ 100 mls/hr IV 1999 .CONT .Q10H [facility] Rx#:[id number] KCl 20 mEq Premix Inj 20 meq In 200 / 200 100 ml @ 50 mls/hr IV.SIG Q2H [facility] Rx#:[id number] NS Inj 1,000 ML @ Wide Open IV. 1000 / 1000 SIG BOLUS ONE Rx#:[id number] Rocephin Inj 1,000 MG In NS Inj 100 / 100 100 ML @ 200 mls/hr IV.SIG ONCE ONE Rx#:[id number] Oral 100 / 100 Output: Urine 400 / 400 1000 / 1000 Other: Date of Last Bowel Movement 05/26/18 05/26/18 05/26/18 Narrative: awake and alert moist oral mucosa anictric neck supple, no rigdiity lungs- no rales regular rhythm abdmen- soft, good bowel sounds, no guarding, no rigidity extremities no edema neuro exam- non focal Results - Labs CBC & Chem 7: 05/27/18 05:20 05/27/18 05:20 Laboratory Results - last 24 hr 05/26/18 05/26/18 05/27/18 08:40 11:52 05:20 WBC 8.1 D RBC 3.80 L Hgb 13.1 D Hct 37.7 L MCV 99.2 MCH 34.3 H MCHC 34.6 RDW 16.0 Plt Count 139 L MPV 8.8 Neut % (Auto) 64.9 Lymph % (Auto) 23.7 Traverse % (Auto) 8.2 H Eos % (Auto) 2.9 Baso % (Auto) 0.3 Neut # (Auto) 5.3 Lymph # (Auto) 1.9 Traverse # (Auto) 0.7 Eos # (Auto) 0.2 Baso # (Auto) 0.0 WBC Differential . Differential Comment Auto diff final Sodium Potassium Chloride Carbon Dioxide Anion Gap BUN Creatinine Estimated GFR Random Glucose Lactic Acid 1.3 Calcium Magnesium 2.1 Total Bilirubin AST ALT Alkaline Phosphatase Total Protein Albumin 05/27/18 05:20 WBC RBC Hgb Hct MCV MCH MCHC RDW Plt Count MPV Neut % (Auto) Lymph % (Auto) Traverse % (Auto) Eos % (Auto) Baso % (Auto) Neut # (Auto) Lymph # (Auto) Traverse # (Auto) Eos # (Auto) Baso # (Auto) WBC Differential Differential Comment Sodium 140 Potassium 3.8 D Chloride 105 Carbon Dioxide 28.8 Anion Gap 6 BUN 7 Creatinine 0.58 L Estimated GFR Greater than 89 Random Glucose 82 Lactic Acid Calcium 7.9 L D Magnesium Total Bilirubin 0.7 AST 20 ALT 38 Alkaline Phosphatase 107 Total Protein 5.7 L D Albumin 2.9 L D Microbiology 05/26/18 08:25 Clean Catch Urine Urine Culture - Preliminary No growth in 24 hours 05/26/18 09:30 Blood - Peripheral Aerobic Blood Culture - Preliminary No growth in 1 day 05/26/18 09:30 Blood - Peripheral Anaerobic Blood Culture - Preliminary No growth in 1 day 05/26/18 09:35 Blood - Peripheral Aerobic Blood Culture - Preliminary No growth in 1 day 05/26/18 09:35 Blood - Peripheral Anaerobic Blood Culture - Preliminary No growth in 1 day Assessment and Plan - Plan 52-year-old male with metastatic colon cancer including liver metastasis, admitted secondary to hyperemesis which appears related to chemotherapy //Uncontrolled nausea and vomiting.- symptoms improved -No evidence of obstruction on abdominal film. -Secondary to chemotherapy 2 weeks prior -Schedule Zofran with Zofran, Reglan as needed. - start diet today //Lactic acidosis. =-With lactic acid 3.9 on admission. -Likely secondary to nausea and vomiting in setting of liver dysfunction, possible thiamine deficiency.. No signs of acute infection. -Resolved. //Leukocytosis- resolved - no fever, not ill looking - WBC down with no anitiboitcs given Of 19.8. Likely secondary to nausea or vomiting. Urinalysis only with RBCs. No evidence of infection. Continue to monitor. //Hypokalemia 2.8. Likely secondary to nausea and vomiting. Replace. Monitor. - Improved //Colon cancer //Stomach ulcer //Esophagitis //Liver metastasis //Immunocompromise //Active chemotherapy -No acute concerns on imaging -continue baseline management -Oncology following, has signed off, follow up in 2 weeks -GI following -Continue PPI -Follow up out patient with Dr. Ibis DR. Factor //Constipation -No acute constipation noted -Lactulose prn or suppository -colace 100 mg bid Discussed Condition With: patient start diet today- if tolerating dc home in am patient agreeable
[2018-05-28] MEDS: Sod Chloride 0.9% Inj 1,000 ML IV.CONT SCH (01:56)
[2018-05-28] MEDS: Senna/Docusate Sodium 8.6/50 MG Tablet PO SCH (09:15)
[2018-05-28] MEDS: Morphine Sulfate 15 MG SR Tablet PO SCH (09:15)
--- NOTE | 2018-05-28 14:23 | P.PN ---
Subjective Interval history: tolerating po well n further nausea or vomting had a good BM today Physical Exam Vital signs: Vital Signs 05/27/18 16:59 05/27/18 17:00 05/27/18 19:49 Temperature 98.2 F 98.3 F Pulse Rate 80 85 75 Respiratory Rate 20 16 Blood Pressure 134/90 121/82 Pulse Oximetry 99 98 05/27/18 19:55 05/27/18 20:11 05/28/18 00:00 Temperature 98.5 F Pulse Rate 74 73 Respiratory Rate 16 16 Blood Pressure 141/85 H Pulse Oximetry 99 05/28/18 00:05 05/28/18 04:00 05/28/18 04:06 Temperature 98.3 F Pulse Rate 67 61 65 Respiratory Rate 16 Blood Pressure 126/76 Pulse Oximetry 98 05/28/18 07:29 05/28/18 09:11 05/28/18 11:01 Temperature 98.2 F Pulse Rate 56 L 87 66 Respiratory Rate 16 Blood Pressure 127/75 Pulse Oximetry 100 05/28/18 11:38 Temperature 98.2 F Pulse Rate 76 Respiratory Rate 20 Blood Pressure 117/71 Pulse Oximetry 98 Intake & Output 05/27/18 05/28/18 05/28/18 18:59 06:59 18:59 Intake Total 1750 / 1750 1180 / 1180 1000 / 1000 Output Total 800 / 800 Balance 950 / 950 1180 / 1180 1000 / 1000 Weight 66 kg Intake: IV 1000 / 1000 1000 / 1000 1000 / 1000 NS Inj 1,000 ML @ 100 mls/hr IV 1000 / 1000 1000 / 1000 1000 / 1000 .CONT .Q10H [facility] Rx#:[id number] Oral 750 / 750 180 / 180 Output: Urine 800 / 800 Other: # Voids 3 Date of Last Bowel Movement 05/26/18 05/26/18 05/28/18 # Bowel Movements 0 Results - Labs CBC & Chem 7: 05/27/18 05:20 05/27/18 05:20 Microbiology 05/26/18 09:30 Blood - Peripheral Aerobic Blood Culture - Preliminary No growth in 2 days 05/26/18 09:30 Blood - Peripheral Anaerobic Blood Culture - Preliminary No growth in 2 days 05/26/18 09:35 Blood - Peripheral Aerobic Blood Culture - Preliminary No growth in 2 days 05/26/18 09:35 Blood - Peripheral Anaerobic Blood Culture - Preliminary No growth in 2 days 05/26/18 08:25 Clean Catch Urine Urine Culture - Final No growth in 48 hours Assessment and Plan - Plan 52-year-old male with metastatic colon cancer including liver metastasis, admitted secondary to hyperemesis which appears related to chemotherapy //Uncontrolled nausea and vomiting.- symptoms improved -No evidence of obstruction on abdominal film. -Secondary to chemotherapy 2 weeks prior -Schedule Zofran with Zofran, Reglan as needed. - start diet today //Lactic acidosis. =-With lactic acid 3.9 on admission. -Likely secondary to nausea and vomiting in setting of liver dysfunction, possible thiamine deficiency.. No signs of acute infection. -Resolved. //Leukocytosis- resolved - no fever, not ill looking - WBC down with no anitiboitcs given Of 19.8. Likely secondary to nausea or vomiting. Urinalysis only with RBCs. No evidence of infection. Continue to monitor. //Hypokalemia 2.8. Likely secondary to nausea and vomiting. Replace. Monitor. - Improved //Colon cancer //Stomach ulcer //Esophagitis //Liver metastasis //Immunocompromise //Active chemotherapy -No acute concerns on imaging -continue baseline management -Oncology following, has signed off, follow up in 2 weeks -Continue PPI -Follow up out patient with Dr. Ibis DR. Factor //Constipation -No acute constipation noted -Lactulose prn or suppository -colace 100 mg bid Discussed Condition With: patient start diet today- if tolerating dc home in am patient agreeable
[2018-05-28] MEDS ORDERED: Heparin Central Flush 100 UNIT/ML 5 ML Vial IV.FLUSH PRN ×2 (15:07)
== END 2018-05-28 16:31 | disposition home or self-care (01) ==
LOC: NEDA 08:15 → NEPE 08:15 → HCIN 16:00
PROVIDERS: ADMIT Internal Medicine; ATTEND Internal Medicine
DX: E87.6 Hypokalemia; K20.9 Esophagitis, unspecified; G89.29 Other chronic pain; K25.9 Gastric ulcer, unspecified as acute or chronic, without hemorrhage or perforation; Z90.49 Acquired absence of other specified parts of digestive tract; R11.2 Nausea with vomiting, unspecified; C18.9 Malignant neoplasm of colon, unspecified; R10.9 Unspecified abdominal pain; D72.829 Elevated white blood cell count, unspecified; C78.7 Secondary malignant neoplasm of liver and intrahepatic bile duct; F17.210 Nicotine dependence, cigarettes, uncomplicated; T45.1X5A Adverse effect of antineoplastic and immunosuppressive drugs, initial encounter; E87.2 Acidosis; E86.0 Dehydration